=== PATIENT | female | born 1955 | race Caucasian/White ===

== ENCOUNTER 2017-04-14 06:10 | Inpatient (IN) ==
[2017-04-14] MEDS ORDERED: Albuterol 2.5 MG/3 ML NEBULIZER ONE (06:33)
[2017-04-14] MEDS ORDERED: Lidocaine -MPF 1% 2 ML VIAL ID ONE (06:37)
[2017-04-14] MEDS ORDERED: CeFAZolin Pre 2,000 MG/100 ML 2,000 MG/100 ML BAG IVPB ONE (06:37)
[2017-04-14] MEDS ORDERED: Albuterol 2.5 MG/3 ML NEBULIZER IH ONE (06:37)
[2017-04-14] MEDS ORDERED: Plasma-Lyte A (PH 7.4) 1,000 ML IVC SCH (06:45)
--- NOTE | 2017-04-14 07:40 | Anesthesia Evaluation PreOp ---
Date of Encounter: 04/14/17 Time of Encounter: 07:49 - Past History Planned Operation: exploration of fusion, removal hw, plif l3-4 Cardiac History: OR (2006), HTN, Hyperlipidemia, Cardiac Stent, Other (stress : ef 60, stress induced ischemia apex lv, abnl tid, ekg nondx. lhc 01/07: ef 60, andrew to mid rca, prior stent at prox lad is patent) Pulmonary History: Smoker, Pack/yr (40) EXHIBITS MANAGER History: Denies Any Significant HX Other Medical History: Denies Any Significant HX Anesthesia History: No Prior Anesthetic Complications, Past Anesthesia (back) Alcohol Use: none Drug use: none Medications and Allergies Atorvastatin Calcium [Lipitor] 20 mg PO DAILY 01/23/16 [History] Carvedilol 12.5 mg PO BID 01/23/16 [History] Cyclobenzaprine HCl 10 mg PO BID 01/23/16 [History] Gabapentin [Neurontin] 1,200 mg PO TID 01/23/16 [History] Morphine Immed Rel [Morphine Sulfate] 15 mg PO BID 01/23/16 [History] Nitroglycerin [Nitrostat] 0.4 mg SL Q5M PRN 01/23/16 [History] Aspirin 81 mg PO DAILY #30 tab.chew 01/24/16 [Rx] Clopidogrel [Plavix] 75 mg PO DAILY #30 tablet 01/24/16 [Rx] 3 Allergy/AdvReac Type Severity Reaction Status Date / Time adhesive Allergy Blister Verified 04/14/17 06:54 bacitracin Allergy RASH/BLISTE Verified 04/14/17 07:04 [From Neosporin RS ([id number])] bee venom protein (honey bee) Allergy THROAT Verified 04/14/17 07:04 SWELLING Cortisone Allergy Rash Verified 01/23/16 09:32 Neomycin Allergy RASH/BLISTE Verified 04/14/17 07:04 [From Neosporin RS ([id number])] polymyxin B Allergy RASH/BLISTE Verified 04/14/17 07:04 [From Neosporin RS ([id number])] bupropion [From Wellbutrin] AdvReac Anxiety Verified 01/23/16 09:34 morphine AdvReac See Verified 04/14/17 06:54 Comments - Meds/Allergy Pre-op Review Medications Reviewed: Yes Allergies Reviewed: Yes Beta Blockers on Current Med List: Yes If Beta Blockers taken, Date/Time (Last Dose taken): coreg at 0430 Anesthesia Results - Labs Laboratory Tests 04/09/17 04/09/17 04/09/17 11:26 11:26 11:26 Hgb 12.5 Hct 37.8 Plt Count 284 PT 10.4 INR 1.0 APTT 37.4 H Sodium 136 Potassium 4.7 H Creatinine 0.80 - Imaging EKG: report reviewed (sr) Anesthesia Exam O2 Sat Height 1.57 m Height 1.57 m Height 1.57 m Weight 63.049 kg Weight 63.049 kg Weight 63.049 kg O2 Sat by Pulse Oximetry 99 Vital Signs Temp Pulse Resp BP Pulse Ox 98.1 F 74 18 140/86 99 04/14/17 06:33 04/14/17 06:33 04/14/17 06:33 04/14/17 06:33 04/14/17 06:33 Height: 1.57 Weight: 63 NPO (# of Hours): >8 - HEENT Pupil (Motor): Pupils equal, EOMI Mallampati: III Teeth: Poor dentition Oral Opening: Greater than 3 (good underbite) - EXHIBITS MANAGER LOC: Oriented EXHIBITS MANAGER Motor: Normal RUE, Normal LUE, Normal RLE, Normal LLE, Normal Face EXHIBITS MANAGER Sensory: Normal: RUE, LUE, RLE, LLE, Face - Cardiac Rhythm: Regular Murmur: None - Pulmonary Breath Sounds: bilateral Clear Respiratory Effort: Symmetrical Anesthesia Assess/Plan ASA Score: 3 Modified Hilliard Scale for Level of Consciousness: Cooperative, oriented, and tranquil Anesthetic Plan: General Monitoring Plan: Standard Monitors Recovery Plan: PACU
[2017-04-14] MEDS ORDERED: Lidocaine -MPF 1% 2 ML VIAL ONE (07:49)
--- NOTE | 2017-04-14 07:51 | History & Physical Report ---
Date of Encounter: 04/14/17 Time of Encounter: 07:50 24 Hour HP Update - Instructions Instructions: If the History and Physical is less than 30 days old and was completed prior to A.M. admission and or procedure and has NOT been updated on calendar day of procedure please complete this update prior to performing procedure. - Update Patient reports changes in Medical Condition: No Changes in examination, assessment, or condition: No Changes in Medication: No Preop tests/diagnostics Reviewed: Yes Pre-Op MRSA Screen: Negative Surgery Remains Indicated: Yes Consent for Planned Operative Procedure(s) Verified: Yes - Pre-Operative Checklist Preoperative Checklist Indicated: No Prophylactic Antibiotic Ordered: Yes Home Medications Include Beta Setffi: Yes Beta Steffi Taken Today (Day of Surgery): No Beta Steffi Taken Yesterday (Day Prior to Surgery): Yes Is VTE Prophylaxis Indicated?: Yes
[2017-04-14] MEDS ORDERED: Ondansetron 4 MG/2 ML VIAL ONE (08:14)
[2017-04-14] MEDS ORDERED: Dexamethasone 4 MG/ML VIAL ONE (08:14)
[2017-04-14] MEDS ORDERED: *HR* Rocuronium Bromide 50 MG/5 ML VIAL ONE (08:14)
[2017-04-14] MEDS ORDERED: Lidocaine -MPF 4% 5 ML AMPUL ONE (08:14)
[2017-04-14] MEDS ORDERED: *HR* Succinylcholine 200 MG/10 ML VIAL IVP ONE (08:14)
[2017-04-14] MEDS ORDERED: *HR* FentaNYL (PF) 100 MCG/2 ML VIAL ONE (08:15)
[2017-04-14] MEDS ORDERED: *HR* Propofol 200 MG/20 ML VIAL IVP ONE (08:15)
[2017-04-14] MEDS ORDERED: EPHEDrine 50 MG/ML VIAL ONE (08:49)
[2017-04-14] MEDS ORDERED: *HR* Phenylephrine 10 MG/ML VIAL ONE (08:51)
[2017-04-14] MEDS ORDERED: Ondansetron 4 MG/2 ML VIAL IVP ONE (09:27)
[2017-04-14] MEDS ORDERED: *HR* Labetalol 20 MG/4 ML SYRINGE IVP PRN (09:27)
[2017-04-14] MEDS ORDERED: Neostigmine Methylsulfate 3 MG/3 ML SYRINGE ONE (11:21)
--- NOTE | 2017-04-14 11:51 | Orthopedic Operative Note ---
Date of procedure: 04/14/17 Pre-op diagnosis: Lumbar stenosis, degenerative scoliosis, previous lumbar fusion Post-op diagnosis: same Operation/Findings: Exploration of fusion, removal of hardware, posterior lumbar interbody fusion L3 -4: The patient successfully underwent general endotracheal anesthesia. The patient was given antibiotics prior to the start of the procedure. Compression boots and stockings were used for deep vein thrombosis prophylaxis. A Benoit catheter was placed. Leads for neuro monitoring were placed on the upper and lower extremities. This included the cranium. The neuro monitoring personnel confirmed there were satisfactory readings prior to the start of the procedure. The patient was turned prone on the Solo table. The back was prepped and draped in the usual sterile fashion. An incision was was marked and centered over the involved L3-L5 levels in the mid line impart utilizing the previous skin incision. The incision was deepened through the lumbar fascia. Bovie cautery and Seaman elevators were used to reflect the paraspinal musculature at the lateral extent of the transverse processes of the involved L3 and L4 levels. Vianca clamps were placed over the L3 and L4 spinous processes. An intraoperative lateral fluorograph was obtained. A conversation was held between the surgeon and radiologist and both confirmed we had the correct L3 and L4 operative levels. We subsequently exposed the bilateral hardware at L4 and L5 as well as the fusion mass at this level. After palpation and manipulation of the hardware and fusion mass there appeared to be a solid fusion at L4-5 without pseudoarthrosis. We removed the bilateral pedicle screws at L4 and L5 including the connecting rods and capnuts in standard fashion using universal instruments. We then placed new pedicle screws in standard fashion with the aid of fluoroscopy and anatomic landmarks. Briefly a starter awl was used. A gearshift was subsequently used to enter the balloon pilot hole via a transpedicular route into the vertebral body. The balloon pilot hole was tapped with an undersized instrument, and subsequently four 6.5 x 40 mm pedicle screws were placed bilaterally at the indicated L3 and L4 levels. The screws were tested with the aid of the neurologic monitoring staff via pedicle screw stimulation. All reading suggested there was no significant cortical wall breech. The screws were also evaluated fluoro- graphically and appeared to be in satisfactory position. We then turned our attention to the decompression portion of the procedure. We removed the supraspinous and interspinous ligaments and subsequently the insertion of the ligamentum flavum on the undersurface of the proximal L3 lamina was dislodged with a curette. We then removed the ligamentum flavum as well as undercut the L3-4 facets at this L3-4 level to decompress the lateral recesses. We also performed a L3 laminectomy. After the decompression, which was over and above that which was required to place the interbody graft, the foramen and traversing roots at this L3-L4 level were found to be free and patent. We also took part of the medial facets in order to aid in the decompression. We then protected the neural elements including the thecal sac and traversing nerve root on the right with a dural retractor. We made an annulotomy into the L3-L4 disc space and then removed the entire disc material using Pituitary instruments. We trialed various size grafts after the endplates were prepared for graft insertion. An 8 x 26 enter body graft fit well within the L3-L4 disc space. We obtained some bone from the right posterior superior iliac spine through us a separate incision and combined with this with the bone which we had saved from the laminectomy portion of the procedure. This autograft bone was first placed in the anterior portion of the L3-L4 disc space and additional bone was placed within the interbody graft spacer. We then placed the interbody graft spacer obliquely across the L3-L4 disc space towards the midline while protecting the neural elements with a root retractor. When the graft was found to be in satisfactory position the afloat cryptologic manager was removed. We then copiously irrigated the wound. We then decorticated the L3 and L4 transverse processes as well as the L3-L4 facet joints of the involved L3 and L4 levels to aid in the posterolateral fusion. We placed autograft bone in the lateral gutters over these regions. We then placed rods within the screw heads of the involved L3 and L4 levels and first locked the distal screws and then subsequently locked the proximal screws so as to improve the scoliosis and listhesis previously seen. We then closed the wound in layers with 1 Vicryl for the fascia, 2-0 Vicryl. Subcutaneous tissue, and Dermabond was used for skin closure. Sterile dressings were placed over the wound. The patient was turned supine on a hospital bed and extubated. All sponge instruments and needle counts were correct at the end of the procedure. The patient tolerated the procedure well without complications. Anesthesia: GETA Surgeon: Александр Scott Jr Estimated blood loss (cc): 150 Condition: stable Disposition: PACU
[2017-04-14] MEDS ORDERED: *HR* HYDROmorphone 2 MG/ML SYRINGE ONE (12:02)
[2017-04-14] MEDS: *HR* HYDROmorphone (PF) 1 MG/ML SYRINGE IVP PRN ×3 (12:11→12:29)
--- NOTE | 2017-04-14 12:44 | Anesthesia Evaluation Post Op ---
Date of Encounter: 04/14/17 Time of Encounter: 12:43 - Vital Signs Vital Signs: Vital Signs/O2 Sat/Glucose, Most Current Temp Pulse Resp BP Pulse Ox 04/14/17 12:42 97.4 F L 62 14 112/78 100 04/14/17 12:32 97.4 F L 69 16 129/78 91 04/14/17 12:22 71 18 127/81 95 04/14/17 12:12 69 18 139/90 99 04/14/17 12:02 97.4 F L 79 20 147/94 99 - Lungs Lungs: Clear Ascult./Percussion - Airway Airway: Non-obstructed - Cardiovascular Regular Rate - Mental Status Mental Status: Alert & Oriented, Answers Appropriately - Pain Pain Scale: 0 - Nausea Vomiting Nausea Vomiting: Not Present - Hydration Hydration: Ice chips - Discharge PostOp Status: Transfer Patient to floor
[2017-04-14] MEDS ORDERED: *HR* Morphine 2 MG/ML SYRINGE IVP PRN (13:00)
[2017-04-14] MEDS ORDERED: Naloxone 0.4 MG/ML INJ IVP PRN (13:00)
[2017-04-14] MEDS ORDERED: Nitroglycerin 0.4 MG TAB.SUBL SL PRN (13:00)
[2017-04-14] MEDS ORDERED: Ondansetron 4 MG/2 ML VIAL IVP PRN (13:00)
[2017-04-14] MEDS: *HR* OxyCODONE Immed Rel 5 MG TABLET PO SCH ×4 (14:37→23:29)
[2017-04-14] MEDS: ceFAZolin 2,000 MG in D5% in Water 100 ML IVPB SCH ×2 (15:39→23:29)
[2017-04-14] MEDS: Ringers Solution, Lactated 1,000 ML IVC SCH (18:08)
[2017-04-14] MEDS ORDERED: *HR* Morphine Immed Rel 15 MG TABLET PO SCH (21:00)
[2017-04-14] MEDS ORDERED: *HR* Morphine Immed Rel 30 MG TABLET PO SCH (21:00)
[2017-04-15] MEDS: *HR* OxyCODONE Immed Rel 5 MG TABLET PO SCH ×5 (03:32→21:15)
[2017-04-15] MEDS: Ringers Solution, Lactated 1,000 ML IVC SCH ×2 (03:37→15:30)
[2017-04-15 06:03] LABS: Basophils % 0.1 %; Eosinophils % 0.1 %; Hematocrit 32.3 % (35.3-44.9); Hemoglobin 10.4 g/dL (11.5-15.4); Immature Granulocytes % 0.4 % (0-4); Lymphocytes # 1.3 K/mcL (0.6-4.6); Mean Corpuscular HGB Conc 32.2 g/dL (31.6-35.5); Mean Corpuscular Hemoglobin 27.9 pg (28.0-33.3); Mean Corpuscular Volume 86.6 fL (83.0-100.0); Mean Platelet Volume 11.7 fL (9.4-12.4); Monocytes # 0.9 K/mcL (0.0-1.3); Monocytes % 8.2 %; Neutrophils # 8.9 K/mcL (1.6-8.9); Platelet Count 260 K/mcL (140-400); Red Blood Count 3.73 M/mcL (3.82-4.97); Segmented Neutrophils % 79.2 %
[2017-04-15 06:19] LABS: BUN/Creatinine Ratio 11 (6-26); Blood Urea Nitrogen 8 mg/dL (7-20); Calcium 8.8 mg/dL (8.6-10.8); Carbon Dioxide 27 mEq/L (19-29); Chloride 102 mEq/L (98-109); Glucose 117 mg/dL (70-99); Osmolality,Calculated 281 (280-300); Potassium 4.3 mEq/L (3.5-4.5); Sodium 136 mEq/L (136-145); eGFR For African Americans > 60 (> 60); eGFR For Non-African Americans > 60 (> 60)
[2017-04-15] MEDS: Aspirin 81 MG TAB.CHEW PO SCH (08:18)
[2017-04-15] MEDS ORDERED: Gabapentin 400 MG CAPSULE PO SCH (09:00)
[2017-04-15] MEDS: *HR* HYDROmorphone 2 MG/ML SYRINGE IVP PRN (11:07)
[2017-04-15] MEDS: Gabapentin 300 MG CAPSULE PO SCH ×3 (11:31→21:16)
--- NOTE | 2017-04-15 11:42 | Spine Progress Note ---
Date of Encounter: 04/15/17 Time of Encounter: 11:40 Subjective Principal diagnosis: Lumbar stenosis, status post lumbar fusion Interval history: The patient is without complaints. Afebrile vital signs are stable. Dressing is clean dry and intact. Neurovascularly intact with regard to bilateral lower extremities. Fires all upper and lower extremity motor groups. Assessment : stable. Plan mobilize ,continue analgesics, discharge planning. Objective Vital signs: Vital Signs Temp Pulse Resp BP Pulse Ox 04/15/17 07:56 98.0 F 72 18 146/87 96 04/15/17 03:40 98.3 F 76 21 133/82 93 04/14/17 23:36 98.0 F 77 16 126/82 95 04/14/17 19:29 97.6 F 79 17 118/82 95 04/14/17 16:07 97.2 F L 75 14 120/82 98 04/14/17 15:11 97.0 F L 77 16 127/83 98 04/14/17 14:30 66 16 122/87 99 04/14/17 14:27 96.9 F L 04/14/17 14:08 96.3 F L 04/14/17 13:55 62 14 129/76 99 04/14/17 13:32 97.2 F L 60 14 122/78 97 04/14/17 13:03 68 16 127/79 99 04/14/17 12:42 97.4 F L 62 14 112/78 100 04/14/17 12:32 97.4 F L 69 16 129/78 91 04/14/17 12:22 71 18 127/81 95 04/14/17 12:12 69 18 139/90 99 04/14/17 12:02 97.4 F L 79 20 147/94 99 Intake and Output 04/14/17 04/15/17 04/15/17 23:59 07:59 15:59 Intake Total 680 / 680 1400 / 1400 0 / 0 Output Total 725 / 725 Balance -45 / -45 1400 / 1400 0 / 0 Intake: IV Fluids 200 / 200 1100 / 1100 Lactated Ringers 1,000 ML 1000 / 1000 @ 100 mls/hr IVC .Q10H MARIA ISABEL Rx#:[id number] Ancef 2,000 MG In 200 / 200 100 / 100 Dextrose 5% 100 ML @ 200 mls/hr IVPB Q8HR MARIA ISABEL Rx#: [id number] Oral 480 / 480 300 / 300 0 / 0 Output: Catheter 725 / 725 Other: Meal clear Breakfast Percent of Meal Consumed 0% # Voids 1 - Labs CBC & BMP: 04/15/17 05:37 04/15/17 05:37 Labs: Abnormal lab results WBC 11.2 K/mcL (4.3-11.1) H D 04/15/17 05:37 RBC 3.73 M/mcL (3.82-4.97) L 04/15/17 05:37 Hgb 10.4 g/dL (11.5-15.4) L D 04/15/17 05:37 Hct 32.3 % (35.3-44.9) L 04/15/17 05:37 MCH 27.9 pg (28.0-33.3) L 04/15/17 05:37 Glucose 117 mg/dL (70-99) H 04/15/17 05:37 Consult Discharge Plan - Plan [facility]errals: [facility] [Primary Care Provider[facility] -
[2017-04-16] MEDS: *HR* OxyCODONE Immed Rel 5 MG TABLET PO SCH ×2 (00:43→04:23)
[2017-04-16] MEDS: Gabapentin 300 MG CAPSULE PO SCH ×3 (10:18→21:00)
[2017-04-16] MEDS: Aspirin 81 MG TAB.CHEW PO SCH (10:18)
[2017-04-16] MEDS: *HR* OxyCODONE Immed Rel 5 MG TABLET PO PRN ×2 (10:31→21:00)
--- NOTE | 2017-04-16 15:25 | Spine Progress Note ---
Date of Encounter: 04/16/17 Time of Encounter: 15:24 Subjective Principal diagnosis: Lumbar stenosis, status post lumbar fusion Interval history: The patient complains of headache and has a history of migraines. Afebrile vital signs are stable. Dressing is clean dry and intact. Neurovascularly intact with regard to bilateral lower extremities. Fires all upper and lower extremity motor groups. Assessment :stable. Plan mobilize ,continue analgesics, discharge planning. Objective Vital signs: Vital Signs Temp Pulse Resp BP Pulse Ox 04/16/17 10:41 99 F 103 16 137/87 91 04/16/17 06:44 99.2 F 93 14 135/83 90 04/16/17 04:41 98.4 F 118 19 122/78 92 04/15/17 21:00 98.8 F 84 18 154/89 92 Intake and Output 04/15/17 04/16/17 04/16/17 23:59 07:59 15:59 Intake Total 120 / 120 Balance 120 / 120 Intake: Oral 120 / 120 Other: Meal Dinner Percent of Meal Consumed 0% 20% # Voids 1 - Labs CBC & BMP: 04/15/17 05:37 04/15/17 05:37 Labs: Abnormal lab results WBC 11.2 K/mcL (4.3-11.1) H D 04/15/17 05:37 RBC 3.73 M/mcL (3.82-4.97) L 04/15/17 05:37 Hgb 10.4 g/dL (11.5-15.4) L D 04/15/17 05:37 Hct 32.3 % (35.3-44.9) L 04/15/17 05:37 MCH 27.9 pg (28.0-33.3) L 04/15/17 05:37 Glucose 117 mg/dL (70-99) H 04/15/17 05:37 Consult Discharge Plan - Plan [facility]errals: [facility] [Primary Care Provider] -
[2017-04-16] MEDS: Acetaminophen 325 MG TABLET PO PRN ×2 (15:35→20:59)
[2017-04-17] MEDS: *HR* HYDROmorphone 2 MG/ML SYRINGE IVP PRN ×4 (05:55→20:28)
[2017-04-17 06:48] LABS: Amylase 28 Units/L (25-125); BUN/Creatinine Ratio 14 (6-26); Bilirubin,Total 0.5 mg/dL (0.2-1.2); Blood Urea Nitrogen 10 mg/dL (7-20); Calcium 9.2 mg/dL (8.6-10.8); Carbon Dioxide 32 mEq/L (19-29); Chloride 96 mEq/L (98-109); Glucose 104 mg/dL (70-99); Lipase < 10 Units/L (8-78); Osmolality,Calculated 285 (280-300); Sodium 138 mEq/L (136-145); eGFR For African Americans > 60 (> 60); eGFR For Non-African Americans > 60 (> 60)
[2017-04-17] MEDS: Aspirin 81 MG TAB.CHEW PO SCH (08:45)
[2017-04-17] MEDS: Gabapentin 300 MG CAPSULE PO SCH ×3 (08:45→20:16)
[2017-04-17] MEDS: *HR* OxyCODONE Immed Rel 5 MG TABLET PO PRN ×4 (10:03→23:54)
--- NOTE | 2017-04-17 12:26 | Spine Progress Note ---
Date of Encounter: 04/17/17 Time of Encounter: 12:24 Subjective Principal diagnosis: Lumbar stenosis, status post lumbar fusion Interval history: Currently complains of right upper quadrant and periumbilical pain. Denies fevers, chills or nausea or vomiting. Afebrile vital signs are stable. Incision is clean dry and intact. Neurovascularly intact with regard to bilateral lower extremities. Fires all upper and lower extremity motor groups. She has tenderness to palpation in the periumbilical and right upper quadrant region. No masses detected. No true rebound tenderness. Some guarding with palpation. Assessment :stable. Plan mobilize ,continue analgesics, KUB/ abdomen reviewed and there is no free air or acute abdomen. There is a question of colitis. Laboratory studies including chem 7, amylase, lipase, total bilirubin unremarkable. I am going to obtain a hospitalist consult for evaluation of her abdominal complaints to see if they have anything further to add/recommend. Objective Vital signs: Vital Signs Temp Pulse Resp BP Pulse Ox 04/17/17 12:16 98.7 F 93 18 126/84 94 04/17/17 08:05 98.9 F 89 18 132/84 93 04/17/17 00:49 98.4 F 89 18 107/70 91 04/16/17 22:00 98.8 F 100 17 118/78 94 04/16/17 15:37 98.4 F 92 16 116/74 92 Intake and Output 04/16/17 04/17/17 04/17/17 23:59 07:59 15:59 Intake Total 500 / 500 Balance 500 / 500 Intake: Oral 500 / 500 Other: # Voids 1 2 1 - Labs CBC & BMP: 04/15/17 05:37 04/17/17 06:11 Labs: Abnormal lab results WBC 11.2 K/mcL (4.3-11.1) H D 04/15/17 05:37 RBC 3.73 M/mcL (3.82-4.97) L 04/15/17 05:37 Hgb 10.4 g/dL (11.5-15.4) L D 04/15/17 05:37 Hct 32.3 % (35.3-44.9) L 04/15/17 05:37 MCH 27.9 pg (28.0-33.3) L 04/15/17 05:37 Chloride 96 mEq/L (98-109) L 04/17/17 06:11 Carbon Dioxide 32 mEq/L (19-29) H 04/17/17 06:11 Glucose 104 mg/dL (70-99) H 04/17/17 06:11 Consult Discharge Plan - Plan [facility]errals: [facility] [Primary Care Provider] -
[2017-04-17] MEDS: Acetaminophen 325 MG TABLET PO PRN (13:33)
[2017-04-17] MEDS: 0.9 % Sodium Chloride 1,000 ML IVC SCH (13:51)
--- NOTE | 2017-04-17 13:56 | Internal Medicine Consult Note ---
<Katie Pichardo - Last Filed: 04/17/17 14:13> Date of Encounter: 04/17/17 Time of Encounter: 13:45 - Assessment and Plan (1) Abdominal pain Current Visit: Yes Status: Acute Assessment and plan: 1 patient has been experiencing stabbing like pain in her right upper quadrant since Friday. Pain is constant and relieved with pain medication and aggravated with movement. KUB did reveal possible colitis. Amylase and lipase are within normal limits. We will give patient clear liquids for now 2 IV fluids 3 obtain LFTs [address] of abdomen with IV contrast 6 urinalysis 7 continue with present pain medication Qualifiers: Abdominal location: right upper quadrant Qualified Code(s): R10.11 - Right upper quadrant pain (2) Spinal stenosis of lumbar region Current Visit: Yes Status: Acute Assessment and plan: 1 this is being managed per Dr. Scott 2 continue with current pain regime (3) CAD (coronary artery disease) Current Visit: No Status: Chronic Assessment and plan: 1 continue with ASA BB plavix statin 2 nitrates as needed Qualifiers: Coronary Disease-Associated Artery/Lesion type: [place] artery [place] vs. transplanted heart: [place] heart Associated angina: without angina Qualified Code(s): I25.10 - Atherosclerotic heart disease of [place] coronary artery without angina pectoris (4) DVT prophylaxis Current Visit: Yes Status: Acute Assessment and plan: SCD Internal Medicine - CN: HPI - Data of Consult Patient: new to practice Requesting Physician: Александр Scott Jr MD - Consult Narrative Reason for consult: Medical managment of ABD pain History of present illness: Ms. Naylor is a 61 year old female past medical history of MD with 2 stent placement hypertension hyperlipidemia spinal stenosis. Patient was admitted to this facility per Dr. Scott to undergo spinal surgery due to spinal stenosis. She underwent spinal surgery without any complications. On Friday she began to experience right upper quadrant pain. At first the patient contributed pain to postop pain however the pain continued over the next few days without any improvement. Hospitalist services have been consulted for management of abdominal pain She describes the pain as constant right upper quadrant sharp knifelike radiating at times to her umbilicus. It is aggravated with movement and palpation is relieved with pain medication. She has been passing gas she has not had a bowel movement since surgery. She denies any nausea vomiting fevers or chills. She has been able to tolerate oral intake. She denies any urinary symptoms. KUB was obtained per Dr. Scott which did show no acute abdomen, no free air, indeterminate bowel gas pattern with possible descending colitis. Amylase, lipase and bilirubin are within normal limits. Upon assessment patient appears to be in some slight discomfort. She denies any chest pain or shortness of breath. Her lung sounds are clear heart sounds are regular S1-S2 with no rubs clicks, murmurs noted abdomen is soft and distended. Bowel sounds 4. Upon palpation right upper and lower quadrants are very tender with guarding, rest of abdomen is tender to touch however not as intense as right side. There are no masses appreciated no rebound tenderness There is no pedal edema. We will continue with abdominal workup CBC urine CAT scan of abdomen. reviewed with DR Gandhi who agrees with plan Past Med Surg Social Fam HX - Past Medical History Medical history: coronary artery disease, hyperlipidemia, myocardial infarction , other Psychiatric history: no psych history - Past Surgical History Surgical History: angioplasty/stent, orthopedic, other, other - Social History Smoking Status: Current every day smoker Packs per day: 1 Smokeless Tobacco Status: No Alcohol use: none Drug use: none - Family History Mother Hx Family Cardiac Disorders: Yes Hx Family Endocrine Disorder: Yes - Gastrointestinal Gastrointestinal: abdominal pain, bloating Internal Medicine - CN: Meds Atorvastatin Calcium [Lipitor] 20 mg PO DAILY 01/23/16 [History] Carvedilol 12.5 mg PO BID 01/23/16 [History] Cyclobenzaprine HCl 10 mg PO BID 01/23/16 [History] Gabapentin [Neurontin] 600 mg PO TID 01/23/16 [History] Nitroglycerin [Nitrostat] 0.4 mg SL Q5M PRN 01/23/16 [History] Aspirin 81 mg PO DAILY #30 tab.chew 01/24/16 [Rx] Clopidogrel [Plavix] 75 mg PO DAILY #30 tablet 01/24/16 [Rx] 3 Allergy/AdvReac Type Severity Reaction Status Date / Time adhesive Allergy Blister Verified 04/14/17 06:54 bacitracin Allergy RASH/BLISTE Verified 04/14/17 07:04 [From Neosporin RS ([id number])] bee venom protein (honey bee) Allergy THROAT Verified 04/14/17 07:04 SWELLING Cortisone Allergy Rash Verified 01/23/16 09:32 Neomycin Allergy RASH/BLISTE Verified 04/14/17 07:04 [From Neosporin RS ([id number])] polymyxin B Allergy RASH/BLISTE Verified 04/14/17 07:04 [From Neosporin RS ([id number])] bupropion [From Wellbutrin] AdvReac Anxiety Verified 01/23/16 09:34 morphine AdvReac See Verified 04/14/17 06:54 Comments Internal Medicine - CN: Exam - Constitutional Vitals: Temp Pulse Resp BP Pulse Ox 98.7 F 93 18 126/84 94 04/17/17 12:16 04/17/17 12:16 04/17/17 12:16 04/17/17 12:16 04/17/17 12:16 General appearance IM: Present: A&O X 3, answers questions appropriately - Respiratory Respiratory exam: Present: CTAB - Cardiovascular Cardiovascular exam IM: Present: RRR, +S1, +S2 - GI/Abdominal GI/Abdominal exam IM: Present: distended, guarding, tenderness - Extremities Exam Extremities exam IM: Present: radial pulses palpable and symmetrical - Back Exam Back exam: Present: normal inspection - Neurological Exam Neurological exam: Present: CN II-XII intact, no focal deficits, strengths equal and symetr throughout - Skin Skin exam IM: Present: dry Internal Medicine - CN: Reslt - Labs CBC & Chem 7: 04/15/17 05:37 04/17/17 06:11 Labs: BMP 04/17/17 06:11 Sodium 138 Potassium 4.0 Chloride 96 L Carbon Dioxide 32 H BUN 10 Creatinine 0.69 Glucose 104 H Calcium 9.2 Liver Function 04/17/17 Range/Units 06:11 Total Bilirubin 0.5 (0.2-1.2) mg/dL - Impressions Impressions KUB X-Ray 04/17/17 05:50 IMPRESSION: Indeterminate bowel-gas pattern with possible descending colitis. D/ / Adelso Helton MD / Adelso Helton MD Interpreting Provider: Adelso Helton MD Lumbar Spine X-Ray 04/17/17 08:15 IMPRESSION: 1. Decreased bone mineral density. Stable multilevel degenerative changes and decreased bone mineral density. 2. Stable L3-4 discectomy and posterior fusion. 3. Stable prior L4-5 discectomy. D/ 04/17/2017 12:08:20 Med Bush MD / cat Interpreting Provider: Med Bush MD - Diagnostic Studies Other Images Additional comments: KUB X-Ray 04/17/17 05:50 IMPRESSION: Indeterminate bowel-gas pattern with possible descending colitis. D/ / Adelso Helton MD / Adelso Helton MD Interpreting Provider: Adelso Helton MD Lumbar Spine X-Ray 04/17/17 08:15 IMPRESSION: 1. Decreased bone mineral density. Stable multilevel degenerative changes and decreased bone mineral density. 2. Stable L3-4 discectomy and posterior fusion. 3. Stable prior L4-5 discectomy. D/ 04/17/2017 12:08:20 Med Bush MD / cat Interpreting Provider: Med Bush MD Consult Discharge Plan - Plan [facility]errals: [facility]Primary Care Provider[facility] - <Agnieszka Gandhi - Last Filed: 04/17/17 16:26> Date of Encounter: 04/17/17 Time of Encounter: 15:45 Internal Medicine - CN: HPI - Data of Consult Requesting Physician: Александр Scott Jr MD - Consult Narrative History of present illness: Ms. Naylor is a 61 year old female Internal Medicine - CN: Exam - Constitutional Vitals: Temp Pulse Resp BP Pulse Ox 98.7 F 93 18 126/84 94 04/17/17 12:16 04/17/17 12:16 04/17/17 12:16 04/17/17 12:16 04/17/17 12:16 Internal Medicine - CN: Reslt - Labs CBC & Chem 7: 04/17/17 14:44 04/17/17 06:11 Labs: Short CBC 04/17/17 Range/Units 14:44 WBC 9.1 (4.3-11.1) K/mcL Hgb 9.7 L (11.5-15.4) g/dL Hct 29.5 L (35.3-44.9) % Plt Count 243 (140-400) K/mcL Neutrophils # 6.8 (1.6-8.9) K/mcL BMP 04/17/17 06:11 Sodium 138 Potassium 4.0 Chloride 96 L Carbon Dioxide 32 H BUN 10 Creatinine 0.69 Glucose 104 H Calcium 9.2 Liver Function 04/17/17 04/17/17 Range/Units 06:11 14:44 Total Bilirubin 0.5 0.4 (0.2-1.2) mg/dL Direct Bilirubin 0.3 (0.0-0.5) mg/dL AST 17 (5-34) Units/L ALT 10 (0-55) Units/L Alkaline Phosphatase 86 (38-126) Units/L Albumin 2.7 L (3.5-5.0) g/dL - Impressions Impressions KUB X-Ray 04/17/17 05:50 IMPRESSION: Indeterminate bowel-gas pattern with possible descending colitis. D/ / Adelso Helton MD / Adelso Helton MD Interpreting Provider: Adelso Helton MD Lumbar Spine X-Ray 04/17/17 08:15 IMPRESSION: 1. Decreased bone mineral density. Stable multilevel degenerative changes and decreased bone mineral density. 2. Stable L3-4 discectomy and posterior fusion. 3. Stable prior L4-5 discectomy. D/ / 04/17/2017 12:08:20 Med Bush MD / cat Interpreting Provider: Med Bush MD Abdomen/Pelvis CT 08/24/17 13:37 IMPRESSION: Postoperative changes are seen related to recent L3-L4 discectomy, laminectomy, and posterior spinal fusion. There is a small amount of soft tissue gas seen within the paraspinal musculature, as well as the right psoas muscle and felt likely postsurgical in nature. No loculated rim enhancing fluid collection is seen to suggest an abscess at this time. There is also a small amount of associated subcutaneous soft tissue edema which may be related to developing seroma. Diffuse atherosclerotic disease without acute vascular abnormality. Mild intrahepatic ductal dilation, without definite obstruction. Correlate with liver enzymes. The common bile duct and pancreatic duct are not dilated. There are several small hypoattenuating lesions seen within the liver, with an overall benign appearance though measuring 2-3 mm in size. If this patient is at high risk for malignancy, this could be followed up in 6 months, versus if low to moderate risk per ACR criteria, no follow-up needed. D/ / Bry Vazquez MD / Bry Vazquez MD Interpreting Provider: Bry Vazquez MD - Attending Attestation I examined this patient and my medical decision-making was reviewed with the nurse practitioner. I agree with the documented history of present illness, review of systems, past medical, surgical social and family histories and examination findings, disposition and treatment plan as described above except to any changes set forth below. 61-year-old female patient admitted she her following lumbar spine fusion of L3- L4 vertebra for spinal stenosis. Complaints of abdominal pain in the right upper quadrant radiating down to the groin. Has been going off and on since Friday. Pain makes her feel nauseated. Cramping type. Relieved with intravenous narcotic medications that the patient is receiving for her spine surgery. Has not had a bowel movement for a couple of days but she has not eaten much either. Passing flatus without any difficulty. Never had similar symptoms in the past. No fever chills or night sweats. No chest pain or palpitations. Does have a history of coronary artery disease and had PCI with stent placed in 2016. Currently takes aspirin and Plavix. On examination, patient is awake and alert and oriented. In mild discomfort. Cardiovascular exam shows normal S1 and S2. Respiratory exam shows normal breath sounds. Abdomen is soft and there is right upper quadrant tenderness. Troncoso's sign negative but there is voluntary guarding. Bowel sounds are normal. Reviewed labs. Normal WBC count. Hemoglobin 9.7. Liver enzymes are normal. Alkaline phosphatase, amylase and lipase are also normal. KUB x-ray shows possible descending colitis. CT scan of the abdomen and pelvis ordered with intravenous contrast and this showed no signs of colitis or obstruction. There is mild hepatic ductal dilatation but no gallstones visualized. Pancreas looks normal. CBD and pancreatic duct are also normal. There are some hypoattenuating lesions in the liver which appear benign. Right upper quadrant abdominal pain: Uncertain etiology. No clinical features to suggest colitis. Patient does not have any abnormal liver function tests or features suggestive of gallbladder disease. Abnormal liver lesions but mostly benign. Patient does not have any risk factors for malignancy. We will however check viral hepatic panel. No clear intra-abdominal cause for the patient's pain. We will treat symptomatically. Keep on clears for today and advance diet from tomorrow as tolerated. Pain could also be related to costochondral/muscular pain due to positioning during surgery. We will check urine analysis to look for any acute urinary tract infection. At this time, no further workup is warranted. If patient's condition changes or she develops any other abnormal findings, we may work up further with liver ultrasound. Thank you very much for the consult during care of this patient. We will follow along with you.
[2017-04-17 15:20] LABS: Basophils % 0.2 %; Eosinophils # 0.1 K/mcL (0.0-0.6); Eosinophils % 0.8 %; Hematocrit 29.5 % (35.3-44.9); Hemoglobin 9.7 g/dL (11.5-15.4); Immature Granulocytes % 0.3 % (0-4); Lymphocytes # 1.4 K/mcL (0.6-4.6); Mean Corpuscular HGB Conc 32.9 g/dL (31.6-35.5); Mean Corpuscular Volume 85.3 fL (83.0-100.0); Mean Platelet Volume 11.7 fL (9.4-12.4); Monocytes # 0.8 K/mcL (0.0-1.3); Monocytes % 8.9 %; Neutrophils # 6.8 K/mcL (1.6-8.9); Nucleated Red Blood Cells 0.2 /100 WBC (0); Platelet Count 243 K/mcL (140-400); Red Blood Count 3.46 M/mcL (3.82-4.97); Red Cell Distribution Width 13.7 % (11.5-14.5); Segmented Neutrophils % 74.8 %
[2017-04-17 15:21] LABS: Albumin 2.7 g/dL (3.5-5.0); Albumin/Globulin Ratio 0.8 (1.1-2.2); Bilirubin,Direct 0.3 mg/dL (0.0-0.5); Bilirubin,Indirect 0.1 mg/dL (0.0-1.2); Bilirubin,Total 0.4 mg/dL (0.2-1.2); Globulin 3.4 g/dL (2.4-3.5); Total Protein 6.1 g/dL (6.0-8.3)
[2017-04-17 17:22] LABS: Bilirubin,Urine Negative (Negative); Blood,Urine Negative (Negative); Clarity,Urine Clear (Clear); Color,Urine Yellow (Yellow); Glucose,Urine (UA) Normal (Normal); Ketones,Urine Negative (Negative); Leukocyte Esterase,Urine Small (Negative); Nitrite,Urine Negative (Negative); PH,Urine 6.5 pH Units (5.0-8.0); Protein,Urine Negative (Neg-Trace); Specific Gravity,Urine > 1.030 (1.010-1.025); Urobilinogen,Urine Normal (Normal)
[2017-04-17 17:36] LABS: Bacteria,Urine Few per hpf (None-Few); Squamous Epithelial Cell,Urine Few per lpf (None-Few); WBC,Urine 0-3 per hpf (0-3)
[2017-04-18] MEDS: *HR* HYDROmorphone 2 MG/ML SYRINGE IVP PRN (00:42)
[2017-04-18] MEDS: *HR* HYDROmorphone (PF) 1 MG/ML SYRINGE IVP PRN ×3 (01:45→20:11)
[2017-04-18] MEDS: 0.9 % Sodium Chloride 1,000 ML IVC SCH (01:46)
[2017-04-18] MEDS: *HR* OxyCODONE Immed Rel 5 MG TABLET PO PRN ×2 (05:59→21:41)
[2017-04-18] MEDS: Aspirin 81 MG TAB.CHEW PO SCH (08:48)
[2017-04-18] MEDS: Gabapentin 300 MG CAPSULE PO SCH ×3 (08:48→20:10)
[2017-04-18] MEDS ORDERED: diazePAM 10 MG TABLET PO ONE (09:41)
[2017-04-18 12:49] LABS: Hepatitis A Antibody IgM Nonreactive (Nonreactive); Hepatitis B Core IgM Nonreactive (Nonreactive); Hepatitis B Surface Antigen Nonreactive (Nonreactive); Hepatitis C Virus Antibody Nonreactive (Nonreactive)
--- NOTE | 2017-04-18 14:21 | Internal Med Progress Note ---
Date of Encounter: 04/18/17 Time of Encounter: 10:00 - Assessment and plan (1) Abdominal pain Current Visit: Yes Status: Acute Assessment and plan: Right-sided abdominal pain radiating into legs and upper thighs. Uncertain etiology. CT scan of the abdomen and pelvis did not show any acute abnormalities in her abdomen and pelvis. She did have liver lesions which could be benign cysts. Hepatitis viral serologies negative. Patient does not have any significant risk factors for malignancy. This can be followed further as outpatient. Given that the pain is radiating from her abdomen and down into her thighs, concern for abdominal wall/muscle pain. We will treat symptomatically. Patient's urine is positive for leukocyte esterase. She does not have any dysuria but did have a Benoit catheter in place for surgery. Will treat empirically with short course of antibiotics while awaiting cultures. At this time, no clear identifiable cause has been found for the patient's abdominal pain. However acute intra-abdominal causes for her pain have been ruled out. Given her limited mobility, consider placing her on DVT prophylaxis with subcutaneous heparin. Qualifiers: Abdominal location: right lower quadrant Qualified Code(s): R10.31 - Right lower quadrant pain (2) CAD (coronary artery disease) Current Visit: No Status: Chronic Assessment and plan: No chest pain. Continue aspirin and statin and beta mera Qualifiers: Coronary Disease-Associated Artery/Lesion type: [place] artery [place] vs. transplanted heart: [place] heart Associated angina: without angina Qualified Code(s): I25.10 - Atherosclerotic heart disease of [place] coronary artery without angina pectoris (3) Spinal stenosis of lumbar region Current Visit: Yes Status: Acute Assessment and plan: Status post L-spine fusion at L3-L4. (4) DVT prophylaxis Current Visit: Yes Status: Acute - Subjective Interval history: Patient is sitting up in chair. Continues to have right sided abdominal pain. Today she states that her pain radiates from just below her right ribs down into her leg and worsens with certain motions especially while getting up from bed to her chair and so on. No nausea or vomiting. No diarrhea. No dysuria. - Constitutional Vitals: Temp Pulse Resp BP Pulse Ox 98.1 F 85 14 137/84 94 04/18/17 13:29 04/18/17 13:29 04/18/17 13:29 04/18/17 13:29 04/18/17 13:29 General appearance: Present: A&O X 3, answers questions appropriately - Neck Neck exam general surgery: Present: supple, trachea midline. Absent: lymphadenopathy - Respiratory Respiratory exam: Present: CTAB. Absent: accessory muscle use, rales, rhonchi, wheezes - Cardiovascular Cardiovascular exam: Present: RRR, +S1, +S2. Absent: diastolic murmur, gallop, rubs, systolic murmur - GI/Abdominal GI/Abdominal exam: Present: normal bowel sounds, soft, tenderness (Mainly in the right lower quadrant today), no peritoneal signs. Absent: distended - Extremities Exam Extremities exam: Present: warm, radial pulses palpable and symmetrical. Absent : calf tenderness, cyanotic, pedal edema Internal Medicine: Result - Labs CBC & Chem 7: 04/17/17 14:44 04/17/17 06:11 Labs: Short CBC 04/17/17 Range/Units 14:44 WBC 9.1 (4.3-11.1) K/mcL Hgb 9.7 L (11.5-15.4) g/dL Hct 29.5 L (35.3-44.9) % Plt Count 243 (140-400) K/mcL Neutrophils # 6.8 (1.6-8.9) K/mcL Liver Function 04/17/17 Range/Units 14:44 Total Bilirubin 0.4 (0.2-1.2) mg/dL Direct Bilirubin 0.3 (0.0-0.5) mg/dL AST 17 (5-34) Units/L ALT 10 (0-55) Units/L Alkaline Phosphatase 86 (38-126) Units/L Albumin 2.7 L (3.5-5.0) g/dL Urine 04/17/17 Range/Units 15:50 Urine Color Yellow (Yellow) Urine Clarity Clear (Clear) Urine pH 6.5 (5.0-8.0) pH Units Ur Specific [place] > 1.030 H (1.010-1.025) Urine Protein Negative (Neg-Trace) mg/dL Urine Glucose (UA) Normal (Normal) mg/dL - Impressions Impressions Abdomen/Pelvis CT 04/17/17 13:37 IMPRESSION: Postoperative changes are seen related to recent L3-L4 discectomy, laminectomy, and posterior spinal fusion. There is a small amount of soft tissue gas seen within the paraspinal musculature, as well as the right psoas muscle and felt likely postsurgical in nature. No loculated rim enhancing fluid collection is seen to suggest an abscess at this time. There is also a small amount of associated subcutaneous soft tissue edema which may be related to developing seroma. Diffuse atherosclerotic disease without acute vascular abnormality. Mild intrahepatic ductal dilation, without definite obstruction. Correlate with liver enzymes. The common bile duct and pancreatic duct are not dilated. There are several small hypoattenuating lesions seen within the liver, with an overall benign appearance though measuring 2-3 mm in size. If this patient is at high risk for malignancy, this could be followed up in 6 months, versus if low to moderate risk per ACR criteria, no follow-up needed. D/ / Bry Vazquez MD / Bry Vazquez MD Interpreting Provider: Bry Vazquez MD - VTE Documentation of Mechanical Device: Intermittent pneumatic compression device Consult Discharge Plan - Plan [facility]errals: [facility] [Primary Care Provider] -
--- NOTE | 2017-04-18 15:40 | Spine Progress Note ---
Date of Encounter: 04/18/17 Time of Encounter: 15:38 Subjective Principal diagnosis: Lumbar stenosis, status post lumbar fusion Interval history: Currently complains of right upper quadrant and periumbilical pain. Denies fevers, chills or nausea or vomiting. Afebrile vital signs are stable. Incision is clean dry and intact. Neurovascularly intact with regard to bilateral lower extremities. Fires all upper and lower extremity motor groups. She has tenderness to palpation in the periumbilical and right upper quadrant region. No masses detected. No true rebound tenderness. Some guarding with palpation. Assessment :stable. Plan mobilize ,continue analgesics, Appreciate hospitalist input. Laboratory studies unremarkable. Abdomen and pelvis CT unremarkable. Discharge planning. Objective Vital signs: Vital Signs Temp Pulse Resp BP Pulse Ox 04/18/17 13:29 98.1 F 85 14 137/84 94 04/18/17 10:06 98.4 F 78 18 132/84 96 04/18/17 08:35 98.5 F 83 18 151/93 94 04/17/17 23:32 98.7 F 84 18 130/81 93 04/17/17 19:31 98.2 F 83 15 113/70 99 Intake and Output 04/17/17 04/18/17 04/18/17 23:59 07:59 15:59 Intake Total 1400 / 1400 50 / 50 340 / 340 Output Total 200 / 200 400 / 400 400 / 400 Balance 1200 / 1200 -350 / -350 -60 / -60 Intake: IV Fluids 1000 / 1000 100 / 100 0.9 % Sodium Chloride 1, 1000 / 1000 000 ML @ 100 mls/hr IVC . Q10H MARIA ISABEL Rx#:[id number] Rocephin 1,000 MG In 100 / 100 Dextrose 5% (Minibag+) 100 ML 100 ML @ 200 mls/ hr IVPB DAILY MARIA ISABEL Rx#: [id number] Oral 400 / 400 50 / 50 240 / 240 Output: Urine 200 / 200 400 / 400 400 / 400 Other: # Voids 1 - Labs CBC & BMP: 04/17/17 14:44 04/17/17 06:11 Labs: Abnormal lab results RBC 3.46 M/mcL (3.82-4.97) L 04/17/17 14:44 Hgb 9.7 g/dL (11.5-15.4) L 04/17/17 14:44 Hct 29.5 % (35.3-44.9) L 04/17/17 14:44 Nucleated RBCs/100 WBC 0.2 /100 WBC (0) H 04/17/17 14:44 Chloride 96 mEq/L (98-109) L 04/17/17 06:11 Carbon Dioxide 32 mEq/L (19-29) H 04/17/17 06:11 Glucose 104 mg/dL (70-99) H 04/17/17 06:11 Albumin 2.7 g/dL (3.5-5.0) L 04/17/17 14:44 Albumin/Globulin Ratio 0.8 (1.1-2.2) L 04/17/17 14:44 Ur Specific [place] > 1.030 (1.010-1.025) H 04/17/17 15:50 Ur Leukocyte Esterase Small (Negative) H 04/17/17 15:50 Ur Culture Indicated? YES (NO) A 04/17/17 15:50 Consult Discharge Plan - Plan Referrals: [facility] [Primary Care Provider] -
[2017-04-18] MEDS ORDERED: diazePAM 5 MG TABLET PO PRN (18:13)
[2017-04-18] MEDS ORDERED: diazePAM 5 MG TABLET PO ONE (18:13)
[2017-04-18] MEDS ORDERED: *HR* HYDROmorphone (PF) 1 MG/ML SYRINGE IVP PRN (18:18)
[2017-04-19] MEDS: Acetaminophen 325 MG TABLET PO PRN ×2 (00:09→16:57)
[2017-04-19] MEDS: *HR* OxyCODONE Immed Rel 5 MG TABLET PO PRN ×3 (05:10→18:14)
[2017-04-19] MEDS: Aspirin 81 MG TAB.CHEW PO SCH (09:28)
[2017-04-19] MEDS: Gabapentin 300 MG CAPSULE PO SCH ×3 (09:29→21:15)
--- NOTE | 2017-04-19 10:03 | Orthopedics Progress Note ---
Date of Encounter: 04/19/17 Time of Encounter: 10:01 Subjective Principal diagnosis: Lumbar stenosis, status post lumbar fusion Interval history: S: Patient indicates that she is doing much better this morning. Pain is very well -controlled. No new complaints. Appreciate hospitalist input. O: Afebrile and her vital signs are stable. Lumbar dressing is clean, dry, and intact. She is wearing her brace. Neurovascularly intact to bilateral lower extremity. A: Post posterior lumbar interbody fusion; appreciate hospitalist input P: Presumed postoperative care, mobilization and analgesia Anticipate discharge to rehabilitation on Friday. Objective Vital signs: Vital Signs Temp Pulse Resp BP Pulse Ox 04/19/17 06:39 98 F 89 16 134/68 95 04/19/17 03:35 97.8 F 86 16 137/63 94 04/18/17 23:59 98.8 F 98 18 134/83 93 04/18/17 20:10 98.1 F 99 14 136/94 96 04/18/17 13:29 98.1 F 85 14 137/84 94 04/18/17 10:06 98.4 F 78 18 132/84 96 Intake and Output 04/18/17 04/19/17 04/19/17 23:59 07:59 15:59 Intake Total 200 / 200 300 / 300 Balance 200 / 200 300 / 300 Intake: Oral 200 / 200 300 / 300 Other: # Voids 1 1 Weight 63.401 kg Patient Weight 04/19/17 23:59 Weight 63.401 kg - Labs CBC & BMP: 04/17/17 14:44 04/17/17 06:11 Labs: Abnormal lab results RBC 3.46 M/mcL (3.82-4.97) L 04/17/17 14:44 Hgb 9.7 g/dL (11.5-15.4) L 04/17/17 14:44 Hct 29.5 % (35.3-44.9) L 04/17/17 14:44 Nucleated RBCs/100 WBC 0.2 /100 WBC (0) H 04/17/17 14:44 Chloride 96 mEq/L (98-109) L 04/17/17 06:11 Carbon Dioxide 32 mEq/L (19-29) H 04/17/17 06:11 Glucose 104 mg/dL (70-99) H 04/17/17 06:11 Albumin 2.7 g/dL (3.5-5.0) L 04/17/17 14:44 Albumin/Globulin Ratio 0.8 (1.1-2.2) L 04/17/17 14:44 Ur Specific [place] > 1.030 (1.010-1.025) H 04/17/17 15:50 Ur Leukocyte Esterase Small (Negative) H 04/17/17 15:50 Ur Culture Indicated? YES (NO) A 04/17/17 15:50 - VTE Documentation of Mechanical Device: Intermittent pneumatic compression device Consult Discharge Plan - Plan [facility]errals: [facility] [Primary Care Provider] -
[2017-04-19] MEDS: *HR* OxyCODONE ER (12 HR) 10 MG TABLET PO SCH ×2 (10:16→21:15)
--- NOTE | 2017-04-19 10:58 | Internal Med Progress Note ---
Date of Encounter: 04/19/17 Time of Encounter: 09:30 - Assessment and plan (1) Abdominal pain Current Visit: Yes Status: Acute Assessment and plan: Appears to be musculoskeletal pain. Improves with Flexeril and Valium. Given the severity of patient's pain in her high use of narcotic pain medications, we will place her on long-acting medications and try to decrease short-acting medications for better pain relief long-term. Venous Doppler of the right leg does not show any deep vein thrombosis. No other acute etiology has been identified. Continue supportive care and pain control. Physical therapy. Moderate risk for complications. Qualifiers: Abdominal location: right lower quadrant Qualified Code(s): R10.31 - Right lower quadrant pain (2) CAD (coronary artery disease) Current Visit: No Status: Chronic Assessment and plan: No chest pain. Continue current management Qualifiers: Coronary Disease-Associated Artery/Lesion type: [place] artery [place] vs. transplanted heart: [place] heart Associated angina: without angina Qualified Code(s): I25.10 - Atherosclerotic heart disease of [place] coronary artery without angina pectoris (3) Spinal stenosis of lumbar region Current Visit: Yes Status: Acute Assessment and plan: Status post lumbar spine fusion. Plan to discharge to rehabilitation on Friday. (4) DVT prophylaxis Current Visit: Yes Status: Acute - Subjective Interval history: Patient complains of pain this morning and is upset that it is not being controlled well. She is concerned that we are not waking her up to give her pain medications and she feels like she is getting backed up with the pain as a result. Pain is again mostly in the right lower abdomen radiating down into her leg. Spasmodic. No nausea or vomiting. Tolerating diet well. - Constitutional Vitals: Temp Pulse Resp BP Pulse Ox 98 F 89 16 134/68 95 04/19/17 06:39 04/19/17 06:39 04/19/17 06:39 04/19/17 06:39 04/19/17 06:39 General appearance: Present: A&O X 3, answers questions appropriately - Respiratory Respiratory exam: Present: CTAB. Absent: accessory muscle use, rales, rhonchi, wheezes - Cardiovascular Cardiovascular exam: Present: RRR, +S1, +S2. Absent: diastolic murmur, gallop, rubs, systolic murmur - GI/Abdominal GI/Abdominal exam: Present: normal bowel sounds, soft, tenderness (Very tender in the right lower quadrant to superficial palpation. ), no peritoneal signs. Absent: distended - Extremities Exam Extremities exam: Present: warm, radial pulses palpable and symmetrical. Absent : calf tenderness, cyanotic, pedal edema - Neurological Exam Neurological exam: Present: alert, oriented X3, no focal deficits. Absent: facial droop, speech deficit Internal Medicine: Result - Labs CBC & Chem 7: 04/17/17 14:44 04/17/17 06:11 - VTE Documentation of Mechanical Device: Intermittent pneumatic compression device Consult Discharge Plan - Plan [facility]errals: [facility] [Primary Care Provider] -
[2017-04-19] MEDS: *HR* HYDROmorphone (PF) 1 MG/ML SYRINGE IVP PRN (12:19)
[2017-04-20] MEDS: *HR* OxyCODONE Immed Rel 5 MG TABLET PO PRN ×2 (03:02→23:27)
[2017-04-20] MEDS: *HR* HYDROmorphone (PF) 1 MG/ML SYRINGE IVP PRN ×3 (06:41→19:15)
[2017-04-20] MEDS: *HR* OxyCODONE ER (12 HR) 10 MG TABLET PO SCH ×2 (09:08→21:40)
[2017-04-20] MEDS: Aspirin 81 MG TAB.CHEW PO SCH (09:08)
[2017-04-20] MEDS: Gabapentin 300 MG CAPSULE PO SCH ×3 (09:08→21:40)
--- NOTE | 2017-04-20 10:14 | Orthopedics Progress Note ---
Date of Encounter: 04/20/17 Time of Encounter: 10:13 Subjective Principal diagnosis: Lumbar stenosis, status post lumbar fusion Interval history: S: Continuing to do well. Has been walking the halls with no issue. O: Afebrile and her vital signs are stable. Lumbar dressing is clean, dry, and intact. She is wearing her brace. Neurovascularly intact to bilateral lower extremity. A: Post posterior lumbar interbody fusion P: Presumed postoperative care, mobilization and analgesia Anticipate discharge to rehabilitation tomorrow. Objective Vital signs: Vital Signs Temp Pulse Resp BP Pulse Ox 04/20/17 06:53 98.3 F 84 16 114/68 96 04/20/17 00:00 98.0 F 87 17 110/73 95 04/19/17 21:36 94 04/19/17 18:58 98.3 F 91 17 110/70 94 04/19/17 15:55 98.8 F 89 16 122/81 97 04/19/17 10:33 98.3 F 92 18 129/87 96 Intake and Output 04/19/17 04/20/17 04/20/17 23:59 07:59 15:59 Output Total 250 / 250 Balance -250 / -250 Output: Urine 250 / 250 - Labs CBC & BMP: 04/17/17 14:44 04/17/17 06:11 Labs: Abnormal lab results RBC 3.46 M/mcL (3.82-4.97) L 04/17/17 14:44 Hgb 9.7 g/dL (11.5-15.4) L 04/17/17 14:44 Hct 29.5 % (35.3-44.9) L 04/17/17 14:44 Nucleated RBCs/100 WBC 0.2 /100 WBC (0) H 04/17/17 14:44 Chloride 96 mEq/L (98-109) L 04/17/17 06:11 Carbon Dioxide 32 mEq/L (19-29) H 04/17/17 06:11 Glucose 104 mg/dL (70-99) H 04/17/17 06:11 Albumin 2.7 g/dL (3.5-5.0) L 04/17/17 14:44 Albumin/Globulin Ratio 0.8 (1.1-2.2) L 04/17/17 14:44 Ur Specific [place] > 1.030 (1.010-1.025) H 04/17/17 15:50 Ur Leukocyte Esterase Small (Negative) H 04/17/17 15:50 Ur Culture Indicated? YES (NO) A 04/17/17 15:50 - VTE Documentation of Mechanical Device: Intermittent pneumatic compression device Consult Discharge Plan - Plan Referrals: [facility] [Primary Care Provider] -
--- NOTE | 2017-04-20 11:40 | Internal Med Progress Note ---
Date of Encounter: 04/20/17 Time of Encounter: 08:40 - Assessment and plan (1) Abdominal pain Current Visit: Yes Status: Acute Assessment and plan: Improving. Likely musculoskeletal spasmodic pain. Continue Flexeril scheduled. We will wean down intravenous narcotic medications. No acute intra- abdominal pathology. Qualifiers: Abdominal location: right lower quadrant Qualified Code(s): R10.31 - Right lower quadrant pain (2) CAD (coronary artery disease) Current Visit: No Status: Chronic Qualifiers: Coronary Disease-Associated Artery/Lesion type: [place] artery [place] vs. transplanted heart: [place] heart Associated angina: without angina Qualified Code(s): I25.10 - Atherosclerotic heart disease of [place] coronary artery without angina pectoris (3) Spinal stenosis of lumbar region Current Visit: Yes Status: Acute Assessment and plan: Orthopedics and spine surgery managing. Plan for Placement to skilled rehabilitation (4) DVT prophylaxis Current Visit: Yes Status: Acute - Subjective Interval history: Patient is doing better today. Abdominal Pain is better controlled. No other new complaints at this time. - Constitutional Vitals: Temp Pulse Resp BP Pulse Ox 98.3 F 84 16 114/68 96 04/20/17 06:53 04/20/17 06:53 04/20/17 06:53 04/20/17 06:53 04/20/17 06:53 General appearance: Present: A&O X 3, answers questions appropriately - Respiratory Respiratory exam: Present: CTAB. Absent: accessory muscle use, rales, rhonchi, wheezes - Cardiovascular Cardiovascular exam: Present: RRR, +S1, +S2. Absent: diastolic murmur, gallop, rubs, systolic murmur - GI/Abdominal GI/Abdominal exam: Present: normal bowel sounds, soft, tenderness (Right lower quadrant), no peritoneal signs. Absent: distended - Extremities Exam Extremities exam: Present: warm, radial pulses palpable and symmetrical. Absent : calf tenderness, cyanotic, pedal edema - Back Exam Additional comments: Back brace in place Internal Medicine: Result - Labs CBC & Chem 7: 04/17/17 14:44 04/17/17 06:11 - VTE Documentation of Mechanical Device: Intermittent pneumatic compression device Consult Discharge Plan - Plan Referrals: [facility] [Primary Care Provider] -
[2017-04-20] MEDS: Acetaminophen 325 MG TABLET PO PRN (12:09)
[2017-04-21] MEDS: Acetaminophen 325 MG TABLET PO PRN (00:47)
[2017-04-21] MEDS: *HR* HYDROmorphone (PF) 1 MG/ML SYRINGE IVP PRN (01:21)
[2017-04-21] MEDS: *HR* OxyCODONE Immed Rel 5 MG TABLET PO PRN (06:02)
[2017-04-21 06:33] VITALS: BP 93/71
--- NOTE | 2017-04-21 08:31 | Venous Imaging Report ---
LE Venous Duplex Patient Name:Nicole Naylor Order Number:[id number] Procedure Date:04/18/2017 Date:1955ge:61 yrs Gender:Female Location:[facility] Room #: 3NE29 Clinical Documentation Manager:Kalli Herrera RDCS Referring MD:Agnieszka Gandhi MD director orange:[facility] [place] Reading MD:Julito Boothe MD Primary Indications:hx DVT Secondary Indications: Risk Factors Yes/No Hx of DVT Impressions: Right lower extremity: normal superficial and deep exam. Findings Prior Study: No prior study available for comparison. Lower Extremity Venous Duplex Side Vein Compress Spontaneous Flow Augment Diameter (cm) Depth (cm) Right Distal Iliac Normal Yes Phasic Yes Right Common Femoral Normal Yes Phasic Yes Right Superficial Femoral Normal Yes Phasic Yes Right Popliteal Normal Yes Phasic Yes Right Posterior Tibial Normal Yes Phasic Yes Right Peroneal Normal Yes Phasic Yes Right Saphenofemoral [place] Normal Yes Phasic Yes Right Great Saphenous Normal Yes Phasic Yes Right Lesser Saphenous Normal Yes Phasic Yes Left Common Femoral Normal Yes Phasic Yes Updated by Julito Boothe MD on 04/19/2017 4:18:14 PM electronically signed on 04/19/2017 4:18:36 PM with status of Final
[2017-04-21] MEDS: Aspirin 81 MG TAB.CHEW PO SCH (09:54)
[2017-04-21] MEDS: *HR* OxyCODONE ER (12 HR) 10 MG TABLET PO SCH (09:54)
[2017-04-21] MEDS: Gabapentin 300 MG CAPSULE PO SCH (09:54)
--- NOTE | 2017-04-21 10:20 | Discharge Summary ---
Date of Encounter: 04/21/17 Time of Encounter: 10:15 - Discharge Diagnosis (1) Spinal stenosis of lumbar region Priority: Primary Status: Chronic (2) CAD (coronary artery disease) Priority: Secondary Status: Chronic Qualifiers: Coronary Disease-Associated Artery/Lesion type: [place] artery [place] vs. transplanted heart: [place] heart Associated angina: without angina Qualified Code(s): I25.10 - Atherosclerotic heart disease of [place] coronary artery without angina pectoris (3) Abdominal pain Priority: Secondary Status: Acute Comments: resolved Qualifiers: Abdominal location: right lower quadrant Qualified Code(s): R10.31 - Right lower quadrant pain - Discharge Medications Home Medications: Atorvastatin Calcium [Lipitor] 20 mg PO DAILY 01/23/16 [History] Carvedilol 12.5 mg PO BID 01/23/16 [History] Cyclobenzaprine HCl 10 mg PO BID 01/23/16 [History] Gabapentin [Neurontin] 600 mg PO TID 01/23/16 [History] Nitroglycerin [Nitrostat] 0.4 mg SL Q5M PRN 01/23/16 [History] Aspirin 81 mg PO DAILY #30 tab.chew 01/24/16 [Rx] Clopidogrel [Plavix] 75 mg PO DAILY #30 tablet 01/24/16 [Rx] Allergies/Adverse Reactions: 3 Allergy/AdvReac Type Severity Reaction Status Date / Time adhesive Allergy Blister Verified 04/14/17 06:54 bacitracin Allergy RASH/BLISTE Verified 04/14/17 07:04 [From Neosporin RS ([id number])] bee venom protein (honey bee) Allergy THROAT Verified 04/14/17 07:04 SWELLING Cortisone Allergy Rash Verified 01/23/16 09:32 Neomycin Allergy RASH/BLISTE Verified 04/14/17 07:04 [From Neosporin RS ([id number])] polymyxin B Allergy RASH/BLISTE Verified 04/14/17 07:04 [From Neosporin RS ([id number])] bupropion [From Wellbutrin] AdvReac Anxiety Verified 01/23/16 09:34 morphine AdvReac See Verified 04/14/17 06:54 Comments - Impressions ITS Impressions Lumbar Spine X-Ray 04/14/17 00:00 IMPRESSION: Single lateral view of the lumbar spine demonstrates postsurgical changes of L3 through L5 as above. D/ / Chuck Dhillon MD / Chuck Dhillon MD Interpreting Provider: Chuck Dhillon MD X-Ray 04/17/17 05:50 IMPRESSION: Indeterminate bowel-gas pattern with possible descending colitis. D/ / Adelso Helton MD / Adelso Helton MD Interpreting Provider: Adelso Helton MD Lumbar Spine X-Ray 04/17/17 08:15 IMPRESSION: 1. Decreased bone mineral density. Stable multilevel degenerative changes and decreased bone mineral density. 2. Stable L3-4 discectomy and posterior fusion. 3. Stable prior L4-5 discectomy. D/ / 04/17/2017 12:08:20 Med Bush MD / cat Interpreting Provider: Med Bush MD Abdomen/Pelvis CT 04/17/17 13:37 IMPRESSION: Postoperative changes are seen related to recent L3-L4 discectomy, laminectomy, and posterior spinal fusion. There is a small amount of soft tissue gas seen within the paraspinal musculature, as well as the right psoas muscle and felt likely postsurgical in nature. No loculated rim enhancing fluid collection is seen to suggest an abscess at this time. There is also a small amount of associated subcutaneous soft tissue edema which may be related to developing seroma. Diffuse atherosclerotic disease without acute vascular abnormality. Mild intrahepatic ductal dilation, without definite obstruction. Correlate with liver enzymes. The common bile duct and pancreatic duct are not dilated. There are several small hypoattenuating lesions seen within the liver, with an overall benign appearance though measuring 2-3 mm in size. If this patient is at high risk for malignancy, this could be followed up in 6 months, versus if low to moderate risk per ACR criteria, no follow-up needed. D/ / Bry Vazquez MD / Bry Vazquez MD Interpreting Provider: Bry Vazquez MD Date of admission: 04/14/17 13:08 [facility] care physician: [facility] Consults: 04/14/17 13:00 Consult to Occupational Therapy [CONS] Routine Comment: Evaluate, develop and implement POC Reason for Consult: Postoperative Consult to Physical Therapy [CONS] Routine Comment: Evaluate, develop and implement POC Reason for Consult: Postoperative Consult to Spine Navigator [CONS] [CONS] Routine 04/17/17 10:59 Consult to Expander [CONS] Routine Reason for SW Consult: d/c planning 04/17/17 12:29 Consult to Hospitalist [CONS] Routine Consulting Provider: Hospitalist George Reason for Consult: abdominal pain Call Completed: Yes Discharging clinician: Александр Scott Jr Anticipated date of discharge: 04/21/17 - Patient Status Disposition: Transfer Inpatient Rehab Fac Condition: Good Functional capacity at discharge: uses cane/walker Overall status at discharge: patient is progressing back to baseline - Discharge Instructions Follow Up With: [facility] [Primary Care Provider] - Additional Instructions: Lumbar Please call [facility] ([phone]), your Primary Care Physician, or report to the ER if you have any of the following symptoms: Fever greater that 101.5, increased pain/redness/drainage/odor for your incision site or any other concerning symptoms. ACTIVITY * May Shower * No Tub Baths * No lifting greater than 10 pounds * No Smoking * No Swimming * No off Ground Activities (Running, Climbing, Ladders, Horseback Riding) * No Driving MEDICATIONS: Upon discharge resume your home medications. Take all the medications as prescribed. Take a stool softener if taking narcotic pain medications. Stool softeners are only effective if you drink enough fluids. Drink 6-8 glass of water or fluids a day, unless this is not allowed for another health problem. Despite using stool softeners, if you haven't had a bowel movement in 3 days, please switch to a gentle laxative. Gentle laxatives are sold over the counter. You should have a bowel movement within 24 hours, if not call the office. You will be discharged from the hospital with a prescription for pain medication. You are encouraged to decrease the use of narcotic pain medication as tolerated. Should you require a refill, please call the office. It is best to call 48-72 hours in advance of needing a prescription refill so you don't run out of medication. WOUND CARE: Remove Dressing Tomorrow. Leave incision open to air. Pat dry when you get out of the shower. FOLLOW-UP: Please follow up with your surgeon in the orthopedic clinic in 2 weeks from the day of surgery. References: [employer] (www.apta.org) - Diet and Activity Activity: as per physical therapy Diet: advance to your usual diet - Hospital Course Hospital course: Ms. Naylor is a 61 year old female The patient had an uneventful postoperative course. Progressed from intravenous analgesic needs to oral analgesic needs only. Remained neurovascularly intact and mobilized satisfactorily. All intraoperative and/or postoperative radiographic studies were satisfactory. Patient is discharged with plan for rehabilitation and follow-up in 2 weeks post discharge on analgesic medication and patient's home medications. - Time Spent with Patient Total time spent providing and/or coordinating discharge services: - VTE Documentation of Mechanical Device: Intermittent pneumatic compression device
== END 2017-04-21 11:45 | DRG 460 ==
LOC: SAMDAY 06:10 → 3NENU 13:08
PROVIDERS: ADMIT Orthopaedic Surgery Orthopaedic Surgery of the Spine; ATTEND Orthopaedic Surgery Orthopaedic Surgery of the Spine

== ENCOUNTER 2017-11-19 16:49 | Inpatient (IN) ==
[2017-11-19 18:06] LABS: Basophils % 0.1 %; Eosinophils # 0.1 K/mcL (0.0-0.6); Eosinophils % 0.5 %; Hematocrit 39.8 % (35.3-44.9); Hemoglobin 13.6 g/dL (11.5-15.4); Immature Granulocytes % 0.4 % (0-4); Lymphocytes # 0.9 K/mcL (0.6-4.6); Lymphocytes % 6.7 %; Mean Corpuscular HGB Conc 34.2 g/dL (31.6-35.5); Mean Corpuscular Hemoglobin 28.1 pg (28.0-33.3); Mean Corpuscular Volume 82.2 fL (83.0-100.0); Mean Platelet Volume 11.6 fL (9.4-12.4); Monocytes # 0.6 K/mcL (0.0-1.3); Monocytes % 4.1 %; Neutrophils # 12.2 K/mcL (1.6-8.9); Platelet Count 293 K/mcL (140-400); Red Blood Count 4.84 M/mcL (3.82-4.97); Red Cell Distribution Width 14.1 % (11.5-14.5); Segmented Neutrophils % 88.2 %
[2017-11-19 19:11] LABS: Alanine Aminotransferase 12 Units/L (7-52); Albumin 3.9 g/dL (3.5-5.7); Albumin/Globulin Ratio 1.3 (1.1-2.2); Alkaline Phosphatase 103 Units/L (34-104); Aspartate Amino Transferase 16 Units/L (13-39); BUN/Creatinine Ratio 10 (6-26); Bilirubin,Direct 0.1 mg/dL (0.0-0.2); Bilirubin,Indirect 0.3 mg/dL (0.0-1.2); Bilirubin,Total 0.4 mg/dL (0.3-1.0); Blood Urea Nitrogen 8 mg/dL (8-23); Calcium 9.1 mg/dL (8.6-10.3); Carbon Dioxide 26 mEq/L (23-29); Chloride 98 mEq/L (98-107); Glucose 128 mg/dL (70-105); Lipase 23 Units/L (11-82); Osmolality,Calculated 268 (280-300); Potassium 3.7 mEq/L (3.5-5.1); Sodium 129 mEq/L (136-145); Total Protein 6.9 g/dL (6.4-8.9); eGFR For African Americans > 60 (> 60); eGFR For Non-African Americans > 60 (> 60)
[2017-11-19] MEDS ORDERED: 0.9 % Sodium Chloride 1,000 ML IVC ONE (19:15)
[2017-11-19] MEDS ORDERED: Ondansetron 4 MG/2 ML VIAL IVP ONE (19:31)
[2017-11-19] MEDS ORDERED: *HR* FentaNYL (PF) 100 MCG/2 ML VIAL IVP ONE (19:31)
[2017-11-19] MEDS ORDERED: Ipratropium/Albuterol Neb 3 ML IH ONE (19:33)
--- NOTE | 2017-11-19 19:33 | Emergency Department Note ---
Disposition Clinical Impression: Bowel perforation, Status post colonoscopy Abdominal pain Qualifiers: Abdominal location: generalized Qualified Code(s): R10.84 - Generalized abdominal pain Disposition: Admitted As Inpatient Condition: Undetermined Referrals: [facility] [Primary Care Provider] - Forms: ED Satisfaction Letter, Work/School Release Time of Disposition: 23:42 Abdominal Pain HPI - General Chief Complaint: ED Abdominal Pain Stated Complaint: abd pain s/p colonoscopy this am Time Seen by Provider: 11/19/17 19:12 Source: patient Mode of arrival: ambulatory Limitations: no limitations Nursing Notes Reviewed: Yes Vital Signs Reviewed: Yes - History of Present Illness HPI Narrative: 62 year old female who had a colonoscopy today with 5 polyps removed arrives to the ED complaining of severe abdominal pain that began roughly 4 hours ago. The patient called Dr. Ecsobedo's office who performed the colonoscopy told patient to come to the ED. Associated nausea. No rectal bleeding. no other complaints. Pain Scale: 9 - Related Data Home Medications Medication Instructions Recorded Confirmed Carvedilol 12.5 mg PO BID 01/23/16 11/19/17 Cyclobenzaprine HCl 10 mg PO BID 01/23/16 11/19/17 Gabapentin [Neurontin] 1,200 mg PO TID 01/23/16 11/19/17 Nitroglycerin [Nitrostat] 0.4 mg SL AD PRN 01/23/16 11/19/17 Atorvastatin [Lipitor] 40 mg PO HS 11/19/17 11/19/17 Cholecalciferol (D-3) [Vitamin D] 1,000 unit PO DAILY 11/19/17 11/19/17 Oxycodone HCl [Oxycontin] 10 mg PO Q8H 11/19/17 11/19/17 Previous Rx's Medication Instructions Recorded Aspirin 81 mg PO DAILY #30 tab.chew 01/24/16 Allergies Allergy/AdvReac Type Severity Reaction Status Date / Time adhesive Allergy Blister Verified 04/14/17 06:54 bacitracin Allergy RASH/BLISTE Verified 04/14/17 07:04 [From Neosporin RS ([id number])] bee venom protein (honey bee) Allergy THROAT Verified 04/14/17 07:04 SWELLING Cortisone Allergy Rash Verified 01/23/16 09:32 Neomycin Allergy RASH/BLISTE Verified 04/14/17 07:04 [From Neosporin RS ([id number]-[id number])] polymyxin B Allergy RASH/BLISTE Verified 04/14/17 07:04 [From Neosporin RS ([id number]-atz-[id number])] bupropion [From Wellbutrin] AdvReac Anxiety Verified 01/23/16 09:34 morphine AdvReac See Verified 04/14/17 06:54 Comments All systems ED: reviewed and negative except as stated. Constitutional: Denies: fever, chills, weakness ENT ED: Denies: congestion Cardiovascular: Denies: chest pain Respiratory: Denies: dyspnea Gastrointestinal: Reports: abdominal pain, nausea. Denies: vomiting, diarrhea, constipation, hematemesis, melena, hematochezia Genitourinary: Denies: urgency, dysuria Musculoskeletal: Denies: back pain, neck pain Integumentary: Denies: rash Neurological: Denies: headache, weakness, numbness Abdominal Pain PMH - Past Medical History Medical history: Reports: coronary artery disease, hyperlipidemia, myocardial infarction, other Female Surgical History: Reports: angioplasty/stent, other Psychiatric history: Reports: no psych history - Social History Smoking status: Current every day smoker Alcohol use: Reports: none Drug use: Reports: none Physical Exam - General Limitations: no limitations General appearance: alert, in no apparent distress - Head Head exam: atraumatic, normocephalic, normal inspection - Eye Eye exam: Present: normal appearance, PERRL, EOMI - ENT ENT exam: normal exam, normal oropharynx, mucous membranes moist - Neck Neck exam: Present: normal inspection, full ROM, trachea midline - Chest Chest inspection: Present: normal inspection, symmetric chest wall rise - Respiratory Respiratory exam: Present: wheezes (bilaterally) - Cardiovascular Cardiovascular exam: Present: normal rhythm, tachycardia, normal heart sounds - Abdominal Exam Abdominal exam: Present: soft, tenderness (Diffuse). Absent: distention, guarding, rebound, rigidity - Extremities Exam Extremities exam: Present: normal inspection, full ROM. Absent: tenderness, pedal edema Course - Consultations Consultation #1: Spoke to Dr. Colvin who requested a CT with oral contrast. Asked to be contacted after results. Time: 20:47 Consultation #2: Spoke with Dr. Colvin again after oral contrast CT scan which demonstrates no extravasation of contrast. He stated to admit the patient to the hospitalist and he will consult. Recommended pain control, nothing by mouth, IV antibiotics. The patient received first dose here in the emergency department. Time: 22:59 Vital Signs Temperature 98.4 F 11/19/17 17:01 Pulse Rate 113 11/19/17 17:01 Respiratory Rate 18 11/19/17 17:01 Blood Pressure 134/90 11/19/17 17:01 O2 Sat by Pulse Oximetry 92 11/19/17 17:01 Temperature 98.4 F 11/19/17 17:01 Pulse Rate 113 11/19/17 17:01 Respiratory Rate 18 11/19/17 17:01 Blood Pressure 134/90 11/19/17 17:01 O2 Sat by Pulse Oximetry 92 11/19/17 17:01 Oxygen Delivery Oxygen Delivery Room Air Abdominal Pain - MDM Narrative Medical decision making narrative: In the emergency department demonstrates free air within the abdomen. No oral contrast extravasation noted at this time. We will admit the patient to the hospitalist after consultation with surgery. Recommended IV antibiotics and nothing by mouth. Patient will be admitted to the hospital this at this time. Patient made aware and agrees to plan. No further questions or concerns noted at this time. Accepted by Dr. Frye. - Lab Data Lab results reviewed: Yes I reviewed the patient's lab results. Result diagrams: 11/19/17 17:36 11/19/17 17:36 Lab Results 11/19/17 11/19/17 11/19/17 Range/Units 17:36 17:36 19:43 WBC 13.8 H (4.3-11.1) K/mcL RBC 4.84 (3.82-4.97) M/mcL Hgb 13.6 (11.5-15.4) g/dL Hct 39.8 (35.3-44.9) % MCV 82.2 L (83.0-100.0) fL MCH 28.1 (28.0-33.3) pg MCHC 34.2 (31.6-35.5) g/dL RDW 14.1 (11.5-14.5) % Plt Count 293 (140-400) K/mcL MPV 11.6 (9.4-12.4) fL Immature Gran % 0.4 (0-4) % Seg Neutrophils % 88.2 % Lymphocytes % 6.7 % Monocytes % 4.1 % Eosinophils % 0.5 % Basophils % 0.1 % Neutrophils # 12.2 H (1.6-8.9) K/mcL Lymphocytes # 0.9 (0.6-4.6) K/mcL Monocytes # 0.6 (0.0-1.3) K/mcL Eosinophils # 0.1 (0.0-0.6) K/mcL Basophils # 0.0 (0.0-0.2) K/mcL Sodium 129 L (136-145) mEq/L Potassium 3.7 (3.5-5.1) mEq/L Chloride 98 (98-107) mEq/L Carbon Dioxide 26 (23-29) mEq/L BUN 8 (8-23) mg/dL Creatinine 0.78 (0.60-1.20) mg/dL Est GFR ( Amer) > 60 (> 60) Est GFR (Non-Af Amer) > 60 (> 60) BUN/Creatinine Ratio 10 (6-26) Glucose 128 H (70-105) mg/dL Calculated Osmolality 268 L (280-300) Calcium 9.1 (8.6-10.3) mg/dL Total Bilirubin 0.4 (0.3-1.0) mg/dL Direct Bilirubin 0.1 (0.0-0.2) mg/dL Indirect Bilirubin 0.3 (0.0-1.2) mg/dL AST 16 (13-39) Units/L ALT 12 (7-52) Units/L Alkaline Phosphatase 103 (34-104) Units/L Serum Total Protein 6.9 (6.4-8.9) g/dL Albumin 3.9 (3.5-5.7) g/dL Globulin 3.0 (2.4-3.5) g/dL Albumin/Globulin Ratio 1.3 (1.1-2.2) Lipase 23 (11-82) Units/L Urine Color Yellow (Yellow) Urine Clarity Clear (Clear) Urine pH 6.0 (5.0-8.0) pH Units Ur Specific [place] 1.019 (1.010-1.025) Urine Protein Negative (Neg-Trace) mg/dL Urine Glucose (UA) Normal (Normal) mg/dL Urine Ketones Negative (Negative) mg/dL Urine Blood Trace H (Negative) Urine Nitrite Negative (Negative) Urine Bilirubin Negative (Negative) Urine Urobilinogen Normal (Normal) mg/dL Ur Leukocyte Esterase Trace H (Negative) Urine Microscopic RBC 0-3 (0-3) per hpf Urine Microscopic WBC 0-3 (0-3) per hpf Ur Squamous Epith Cells Many H (None-Few) per lpf Urine Bacteria None Seen (None-Few) per hpf Hyaline Casts None Seen (None-Few) per lpf Ur Culture Indicated? NO. (NO) - Radiology Data Radiology results reviewed: Yes I reviewed the patient's radiology results. Abdomen/Pelvis CT 11/19/17 22:00 IMPRESSION: Unchanged punctate foci free air inferior to the diaphragm suspicious for perforated viscus. No new/ large foci of free air to suggest new perforation. Unchanged mild wall thickening of the sigmoid colon. D/ / Jeremi Thomas MD / Jeremi Thomas MD Interpreting Provider: Jeremi Thomas MD
[2017-11-19 19:59] LABS: Bilirubin,Urine Negative (Negative); Blood,Urine Trace (Negative); Clarity,Urine Clear (Clear); Color,Urine Yellow (Yellow); Glucose,Urine (UA) Normal (Normal); Ketones,Urine Negative (Negative); Leukocyte Esterase,Urine Trace (Negative); Nitrite,Urine Negative (Negative); Protein,Urine Negative (Neg-Trace); Specific Gravity,Urine 1.019 (1.010-1.025); Urobilinogen,Urine Normal (Normal)
[2017-11-19 20:03] LABS: Bacteria,Urine None Seen per hpf (None-Few); Hyaline Casts,Urine None Seen per lpf (None-Few); RBC,Urine 0-3 per hpf (0-3); Squamous Epithelial Cell,Urine Many per lpf (None-Few); WBC,Urine 0-3 per hpf (0-3)
[2017-11-19] MEDS ORDERED: Piperacillin/Tazobactam 3.375 GM in 0.9 % Sodium Chloride Mini Bag 100 ML IVPB ONE (20:43)
[2017-11-19] MEDS ORDERED: *HR* HYDROmorphone (PF) 1 MG/ML SYRINGE IVP ONE (21:32)
[2017-11-19] MEDS ORDERED: Ondansetron 4 MG/2 ML VIAL IVP PRN (22:09)
[2017-11-19] MEDS: *HR* HYDROmorphone (PF) 1 MG/ML SYRINGE IVP PRN (23:35)
--- NOTE | 2017-11-20 00:06 | Emergency Department Note ---
Disposition Clinical Impression: Bowel perforation, Status post colonoscopy Abdominal pain Qualifiers: Abdominal location: generalized Qualified Code(s): R10.84 - Generalized abdominal pain Disposition: Admitted As Inpatient Condition: Undetermined General Adult HPI - General Chief complaint: ED Abdominal Pain Stated complaint: abd pain s/p colonoscopy this am Time Seen by Provider: 11/19/17 19:12 Source: patient Mode of arrival: ambulatory Limitations: no limitations - History of Present Illness Pain Scale: 9 - Related Data Home Medications Medication Instructions Recorded Confirmed Carvedilol 12.5 mg PO BID 01/23/16 11/19/17 Cyclobenzaprine HCl 10 mg PO BID 01/23/16 11/19/17 Gabapentin [Neurontin] 1,200 mg PO TID 01/23/16 11/19/17 Nitroglycerin [Nitrostat] 0.4 mg SL AD PRN 01/23/16 11/19/17 Atorvastatin [Lipitor] 40 mg PO HS 11/19/17 11/19/17 Cholecalciferol (D-3) [Vitamin D] 1,000 unit PO DAILY 11/19/17 11/19/17 Oxycodone HCl [Oxycontin] 10 mg PO Q8H 11/19/17 11/19/17 Previous Rx's Medication Instructions Recorded Aspirin 81 mg PO DAILY #30 tab.chew 01/24/16 Allergies Allergy/AdvReac Type Severity Reaction Status Date / Time adhesive Allergy Blister Verified 04/14/17 06:54 bacitracin Allergy RASH/BLISTE Verified 04/14/17 07:04 [From Neosporin RS ([id number])] bee venom protein (honey bee) Allergy THROAT Verified 04/14/17 07:04 SWELLING Cortisone Allergy Rash Verified 01/23/16 09:32 Neomycin Allergy RASH/BLISTE Verified 04/14/17 07:04 [From Neosporin RS ([id number])] polymyxin B Allergy RASH/BLISTE Verified 04/14/17 07:04 [From Neosporin RS ([id number])] bupropion [From Wellbutrin] AdvReac Anxiety Verified 01/23/16 09:34 morphine AdvReac See Verified 04/14/17 06:54 Comments Constitutional: Denies: fever, chills, weakness ENT ED: Denies: congestion Cardiovascular: Denies: chest pain Respiratory: Denies: dyspnea Gastrointestinal: Reports: abdominal pain, nausea. Denies: vomiting, diarrhea, constipation, hematemesis, melena, hematochezia Genitourinary: Denies: urgency, dysuria Musculoskeletal: Denies: back pain, neck pain Integumentary: Denies: rash Neurological: Denies: headache, weakness, numbness Past Medical History - Past Medical History Medical history: Reports: coronary artery disease, hyperlipidemia, myocardial infarction, other Surgical history: Reports: angioplasty/stent, orthopedic, other, other Psychiatric history: Reports: no psych history - Social History Smoking Status: Current every day smoker Smokeless Tobacco Status: No Alcohol use: Reports: none Drug use: Reports: none Physical Exam - General Limitations: no limitations General appearance: alert, in no apparent distress Course Vital Signs Temperature 98.4 F 11/19/17 17:01 Pulse Rate 113 11/19/17 17:01 Respiratory Rate 18 11/19/17 17:01 Blood Pressure 134/90 11/19/17 17:01 O2 Sat by Pulse Oximetry 92 11/19/17 17:01 Temperature 98.4 F 11/19/17 17:01 Pulse Rate 113 11/19/17 17:01 Respiratory Rate 18 11/19/17 17:01 Blood Pressure 134/90 11/19/17 17:01 O2 Sat by Pulse Oximetry 92 11/19/17 17:01 Oxygen Delivery Oxygen Delivery Room Air Medical Decision Making - Lab Data Result diagrams: 11/19/17 17:36 11/19/17 17:36 Lab Results 11/19/17 11/19/17 11/19/17 Range/Units 17:36 17:36 19:43 WBC 13.8 H (4.3-11.1) K/mcL RBC 4.84 (3.82-4.97) M/mcL Hgb 13.6 (11.5-15.4) g/dL Hct 39.8 (35.3-44.9) % MCV 82.2 L (83.0-100.0) fL MCH 28.1 (28.0-33.3) pg MCHC 34.2 (31.6-35.5) g/dL RDW 14.1 (11.5-14.5) % Plt Count 293 (140-400) K/mcL MPV 11.6 (9.4-12.4) fL Immature Gran % 0.4 (0-4) % Seg Neutrophils % 88.2 % Lymphocytes % 6.7 % Monocytes % 4.1 % Eosinophils % 0.5 % Basophils % 0.1 % Neutrophils # 12.2 H (1.6-8.9) K/mcL Lymphocytes # 0.9 (0.6-4.6) K/mcL Monocytes # 0.6 (0.0-1.3) K/mcL Eosinophils # 0.1 (0.0-0.6) K/mcL Basophils # 0.0 (0.0-0.2) K/mcL Sodium 129 L (136-145) mEq/L Potassium 3.7 (3.5-5.1) mEq/L Chloride 98 (98-107) mEq/L Carbon Dioxide 26 (23-29) mEq/L BUN 8 (8-23) mg/dL Creatinine 0.78 (0.60-1.20) mg/dL Est GFR ( Amer) > 60 (> 60) Est GFR (Non-Af Amer) > 60 (> 60) BUN/Creatinine Ratio 10 (6-26) Glucose 128 H (70-105) mg/dL Calculated Osmolality 268 L (280-300) Calcium 9.1 (8.6-10.3) mg/dL Total Bilirubin 0.4 (0.3-1.0) mg/dL Direct Bilirubin 0.1 (0.0-0.2) mg/dL Indirect Bilirubin 0.3 (0.0-1.2) mg/dL AST 16 (13-39) Units/L ALT 12 (7-52) Units/L Alkaline Phosphatase 103 (34-104) Units/L Serum Total Protein 6.9 (6.4-8.9) g/dL Albumin 3.9 (3.5-5.7) g/dL Globulin 3.0 (2.4-3.5) g/dL Albumin/Globulin Ratio 1.3 (1.1-2.2) Lipase 23 (11-82) Units/L Urine Color Yellow (Yellow) Urine Clarity Clear (Clear) Urine pH 6.0 (5.0-8.0) pH Units Ur Specific [place] 1.019 (1.010-1.025) Urine Protein Negative (Neg-Trace) mg/dL Urine Glucose (UA) Normal (Normal) mg/dL Urine Ketones Negative (Negative) mg/dL Urine Blood Trace H (Negative) Urine Nitrite Negative (Negative) Urine Bilirubin Negative (Negative) Urine Urobilinogen Normal (Normal) mg/dL Ur Leukocyte Esterase Trace H (Negative) Urine Microscopic RBC 0-3 (0-3) per hpf Urine Microscopic WBC 0-3 (0-3) per hpf Ur Squamous Epith Cells Many H (None-Few) per lpf Urine Bacteria None Seen (None-Few) per hpf Hyaline Casts None Seen (None-Few) per lpf Ur Culture Indicated? NO. (NO) Attestation Statement - Attestation Attestation: I, Chemo Taylor MD, personally evaluated this patient and discussed their management with the resident physician. I reviewed the resident's note and agree with the documented findings, medical decision making, and plan of care. 62-year-old female presents to the emergency department with a complaint that she had a colonoscopy with removal of some polyps earlier today. After going home she developed lower abdominal pain which has gotten worse throughout the evening. No vomiting or diarrhea. No fever. On examination patient is a well-developed well-nourished female in no acute distress. She is alert and oriented 3. There is no cyanosis or diaphoresis. Breath sounds are clear and equal bilaterally. Heart regular rate and rhythm. Abdomen is soft with moderate diffuse lower abdominal tenderness with mild guarding. No rebound tenderness. No tympany or distention bowel sounds decreased. Labs reviewed. CT the abdomen and pelvis with IV contrast showed a small amount of free air. Dr. Tapia discussed the case with the surgeon interventional neuroradiologist, Dr. Colvin, and he requested a repeat CT with oral contrast. The repeat CT with oral contrast was obtained and was unchanged from the initial CT. Dr. Colvin was again consulted and recommended admission to the hospitalist service. The hospitalist, Dr. Frye, was consulted and accepted admission of the patient.
[2017-11-20] MEDS ORDERED: OXYCODONE Oral CONC 10 MG/0.5 ML ORAL.SYG SL PRN (02:19)
[2017-11-20] MEDS ORDERED: Naloxone 0.4 MG/ML INJ IVP PRN (02:19)
[2017-11-20] MEDS ORDERED: 0.9 % Sodium Chloride 1,000 ML IVC SCH ×2 (02:30→10:43)
[2017-11-20] MEDS ORDERED: Ipratropium/Albuterol Neb 3 ML IH PRN (04:24)
--- NOTE | 2017-11-20 04:29 | Internal Med History&Physical ---
Date of Encounter: 11/20/17 Time of Encounter: 01:30 Assessment and Plan (1) Abdominal pain Current visit: Yes Status: Acute Patient has abdominal pain. CT abdomen shows possible perforation. Consider acute peritonitis. - Keep patient nothing by mouth, IV fluid - Antibiotic, continue Zosyn - Give IV PPI - Surgical consult in a.m. Qualifiers: Abdominal location: generalized Qualified Code(s): R10.84 - Generalized abdominal pain (2) Bowel perforation Current visit: Yes Status: Acute Management as above (3) DVT prophylaxis Current visit: No Status: Acute EPCD. No anticoagulation at this point because patient may need surgery. Internal Medicine - H&P: HPI Chief complaint: Abdominal pain Admitted From: Home Plans for Post Hospital Care: Home History of present illness: Ms. Naylor is a 62 year old female with history of hypertension, CAD S/P stent , chronic back pain S/P back surgery, presented to ER for abdominal pain. Patient said she had a colonoscopy in the morning and had some polyps removed. Started around 2 PM, patient developed abdominal pain, which is located on lower part of abdomen, burning. Patient has nausea but no vomiting or diarrhea. Patient feel dizziness when getup. Patient denies a fever. In the emergency room, CT abdominal has been done, which shows free air under the diaphragm, suggestive perforation. Patient was admitted for further management. Surgical consult was called by ER. Patient was started Zosyn in ER. Past Med Surg Social Fam HX - Past Medical History Medical history: coronary artery disease, hyperlipidemia, myocardial infarction , other Psychiatric history: no psych history - Past Surgical History Surgical History: angioplasty/stent, orthopedic, other, other - Social History Smoking Status: Current every day smoker Packs per day: 1 Smokeless Tobacco Status: No Alcohol use: none Drug use: none - Family History Mother Hx Family Cardiac Disorders: Yes Hx Family Endocrine Disorder: Yes Internal Medicine - H&P: Meds Carvedilol 12.5 mg PO BID 01/23/16 [History] Cyclobenzaprine HCl 10 mg PO TID 01/23/16 [History] Gabapentin [Neurontin] 600 mg PO TID 01/23/16 [History] Nitroglycerin [Nitrostat] 0.4 mg SL AD PRN 01/23/16 [History] Aspirin 81 mg PO DAILY #30 tab.chew 06/01/16 [Rx] Atorvastatin [Lipitor] 40 mg PO HS 11/19/17 [History] Cholecalciferol (D-3) [Vitamin D] 1,000 unit PO DAILY 11/19/17 [History] Oxycodone HCl [Oxycontin] 10 mg PO TID 11/19/17 [History] 3 Allergy/AdvReac Type Severity Reaction Status Date / Time adhesive Allergy Blister Verified 04/14/17 06:54 bacitracin Allergy RASH/BLISTE Verified 04/14/17 07:04 [From Neosporin RS ([id number])] bee venom protein (honey bee) Allergy THROAT Verified 04/14/17 07:04 SWELLING Cortisone Allergy Rash Verified 01/23/16 09:32 Neomycin Allergy RASH/BLISTE Verified 04/14/17 07:04 [From Neosporin RS ([id number])] polymyxin B Allergy RASH/BLISTE Verified 04/14/17 07:04 [From Neosporin RS ([id number])] bupropion [From Wellbutrin] AdvReac Anxiety Verified 01/23/16 09:34 morphine AdvReac See Verified 04/14/17 06:54 Comments All Systems PM: A 10-system review of systems was performed and is negative for pertinent findings except as documented above in the HPI. - Constitutional Vitals: Temp Pulse Resp BP Pulse Ox 97.8 F 84 14 128/76 96 11/20/17 00:31 11/20/17 00:31 11/20/17 00:31 11/20/17 00:31 11/20/17 00:31 General appearance: Present: A&O X 3, no acute distress, answers questions appropriately - Head Head exam: Present: atraumatic, normocephalic - Eye Eye exam: Present: PERRL, conjuntiva pink, sclera anicteric Pupils: Present: PERRL - Neck Neck exam general surgery: Present: supple, trachea midline. Absent: lymphadenopathy - Respiratory Respiratory exam: Present: CTAB. Absent: accessory muscle use, rales, rhonchi, wheezes - Cardiovascular Cardiovascular exam: Present: RRR, +S1, +S2. Absent: diastolic murmur, gallop, rubs, systolic murmur - GI/Abdominal GI/Abdominal exam: Present: normal bowel sounds, soft, tenderness (Tenderness on lower abdominal area, with guarding, no rebound), no peritoneal signs. Absent: distended - Extremities Exam Extremities exam: Present: warm, radial pulses palpable and symmetrical. Absent : calf tenderness, cyanotic, pedal edema - Neurological Exam Neurological exam: Present: CN II-XII intact, oriented X3, no focal deficits. Absent: pronater drift, facial droop, speech deficit - Skin Skin exam: Present: dry, intact Internal Med - H&P Results - Labs CBC & Chem 7: 11/19/17 17:36 11/19/17 17:36
[2017-11-20] MEDS: *HR* HYDROmorphone (PF) 1 MG/ML SYRINGE IVP PRN (06:10)
[2017-11-20] MEDS: Pantoprazole 40 MG VIAL IVP SCH ×3 (06:12→16:13)
[2017-11-20 06:47] LABS: Basophils % 0.1 %; Eosinophils # 0.1 K/mcL (0.0-0.6); Eosinophils % 1.3 %; Hematocrit 33.6 % (35.3-44.9); Hemoglobin 11.6 g/dL (11.5-15.4); Immature Granulocytes % 0.4 % (0-4); Lymphocytes # 1.2 K/mcL (0.6-4.6); Lymphocytes % 16.6 %; Mean Corpuscular HGB Conc 34.5 g/dL (31.6-35.5); Mean Corpuscular Hemoglobin 28.2 pg (28.0-33.3); Mean Corpuscular Volume 81.6 fL (83.0-100.0); Monocytes # 0.4 K/mcL (0.0-1.3); Monocytes % 6.2 %; Neutrophils # 5.3 K/mcL (1.6-8.9); Platelet Count 238 K/mcL (140-400); Red Blood Count 4.12 M/mcL (3.82-4.97); Red Cell Distribution Width 14.4 % (11.5-14.5); Segmented Neutrophils % 75.4 %
[2017-11-20 06:52] LABS: BUN/Creatinine Ratio 8 (6-26); Blood Urea Nitrogen 5 mg/dL (8-23); Calcium 8.5 mg/dL (8.6-10.3); Carbon Dioxide 23 mEq/L (23-29); Chloride 108 mEq/L (98-107); Glucose 94 mg/dL (70-105); Magnesium 1.8 mg/dL (1.6-2.6); Osmolality,Calculated 279 (280-300); Potassium 3.4 mEq/L (3.5-5.1); Sodium 136 mEq/L (136-145); eGFR For African Americans > 60 (> 60); eGFR For Non-African Americans > 60 (> 60)
[2017-11-20] MEDS ORDERED: Piperacillin/Tazobactam 3.375 GM in 0.9 % Sodium Chloride Mini Bag 100 ML IVPB SCH (08:00)
--- NOTE | 2017-11-20 08:30 | Internal Med Progress Note ---
<Jeff Houser - Last Filed: 11/20/17 10:34> Date of Encounter: 11/20/17 Time of Encounter: 08:20 - Assessment and plan (1) Abdominal pain Current Visit: Yes Status: Acute Assessment and plan: Patient has abdominal pain prevalent in LLQ and RLLQ. No guarding or rebound on exam. CT abdomen shows possible perforation. Consider acute peritonitis. - Keep patient nothing by mouth, IV fluid - Discontinued zosyn day#2. Changed to cipro and flagyl. - Give IV PPI - Surgical consult ordered. Qualifiers: Abdominal location: generalized Qualified Code(s): R10.84 - Generalized abdominal pain (2) Bowel perforation Current Visit: Yes Status: Acute Assessment and plan: Management as above. (3) Hypokalemia Current Visit: Yes Status: Acute Assessment and plan: Potassium at 3.4. - Given 20 meq K+ IV. (4) DVT prophylaxis Current Visit: No Status: Acute Assessment and plan: EPCD. No anticoagulation at this point because patient may need surgery. - Subjective Interval history: Patient admits to abdominal pain that has improved since admission. She rates it currently at a 5 out of 10. She says the abdominal pain is worse in the left lower and right lower quadrants. She denies any fever, chills. She admits to some chest congestion and cough productive of yellow phlegm. She denies any chest pain. No bowel movements in it since admission. Admits to some nausea but denies any vomiting. - Constitutional Vitals: Temp Pulse Resp BP Pulse Ox 97.9 F 87 15 113/74 91 11/20/17 06:34 11/20/17 06:34 11/20/17 06:34 11/20/17 06:34 11/20/17 06:34 General appearance: Present: A&O X 3, no acute distress, answers questions appropriately - Respiratory Respiratory exam: Present: CTAB. Absent: accessory muscle use, rales, rhonchi, wheezes - GI/Abdominal GI/Abdominal exam: Present: hyperactive bowel sounds, soft, tenderness (Most prevalent in left lower quadrant and right lower quadrant.). Absent: distended , guarding, rebound - Extremities Exam Extremities exam: Present: full ROM, normal capillary refill, warm, radial pulses palpable and symmetrical. Absent: calf tenderness, cyanotic, pedal edema , tenderness Internal Medicine: Result - Labs CBC & Chem 7: 11/20/17 06:15 11/20/17 06:15 Labs: Short CBC 11/20/17 Range/Units 06:15 WBC 7.1 (4.3-11.1) K/mcL Hgb 11.6 D (11.5-15.4) g/dL Hct 33.6 L (35.3-44.9) % Plt Count 238 (140-400) K/mcL Neutrophils # 5.3 (1.6-8.9) K/mcL [facility] 11/20/17 06:15 Sodium 136 Potassium 3.4 L Chloride 108 H Carbon Dioxide 23 BUN 5 L Creatinine 0.63 Glucose 94 Calcium 8.5 L Consult Discharge Plan - Plan [facility]errals: [facility]Primary Care Provider[facility] - <Broderick Cook H - Last Filed: 11/20/17 10:45> Date of Encounter: 11/20/17 - Constitutional Vitals: Temp Pulse Resp BP Pulse Ox 97.9 F 87 15 113/74 91 11/20/17 06:34 11/20/17 06:34 11/20/17 06:34 11/20/17 06:34 11/20/17 06:34 Internal Medicine: Result - Labs CBC & Chem 7: 11/20/17 06:15 11/20/17 06:15 Labs: Short CBC 11/20/17 Range/Units 06:15 WBC 7.1 (4.3-11.1) K/mcL Hgb 11.6 D (11.5-15.4) g/dL Hct 33.6 L (35.3-44.9) % Plt Count 238 (140-400) K/mcL Neutrophils # 5.3 (1.6-8.9) K/mcL BMP 11/20/17 06:15 Sodium 136 Potassium 3.4 L Chloride 108 H Carbon Dioxide 23 BUN 5 L Creatinine 0.63 Glucose 94 Calcium 8.5 L - Attending Attestation Sepsis secondary to bowel microperforation Александр to ciprofloxacin and Flagyl IV, keep nothing by mouth Chronic pain, patient takes gabapentin and says she is experiencing withdrawal, explained risks about taking oral medications, we will decrease the frequency down to twice a day next Leukocytosis likely secondary to sepsis Hyponatremia resolved Colonic polyps, removed pathology report pending I examined this patient and my medical decision-making was reviewed with the Resident Physician. I agree with the documented findings, disposition and treatment plan as described except to the extent set forth below.
--- NOTE | 2017-11-20 10:10 | General Surgery Consult Note ---
Date of Encounter: 11/20/17 Time of Encounter: 09:00 Assessment and Plan (1) Abdominal pain Current Visit: Yes Status: Acute Her clinical course thus far has included a CT of the abdomen and pelvis without IV and with oral contrast which shows an unchanged punctate area of air inferior to the diaphragm suspicious for a perforated viscous and a new foci of air suggesting possible new perforation. There is unchanged mild wall thickening of the sigmoid colon. Her white blood cell count was 13.8 on admission and is now decreased to 7.1. Her creatinine is normal. Concern for perforation. Pt states she is passing flatus, but feels bloated and has no improvement in abdominal discomfort. On exam she is tender to palpation, nondistended, and has active bowel sounds. She is not nauseated and has not vomited. The endoscopy report was reviewed with Dr. Colvin and notably the largest polyp that was removed is in the location consistent with her discomfort. Given her improving labs, normal heart rate, afebrile, and non-worsening abdominal discomfort, wait for watching is appropriate at this time. Plan: NPO, bowel rest IVF per primary team continue supportive care and discomfort management continue G.I. and DVT prophylaxis per primary team serial labs serial abdominal exam Qualifiers: Abdominal location: generalized Qualified Code(s): R10.84 - Generalized abdominal pain (2) Status post colonoscopy Current Visit: Yes Status: Acute See a/p above History of Present Illness Consult date: 11/19/17 (Dr. Colvin) Reason for consult: other Requesting physician: Akash Tapia History of present illness: Nicole is a 62 year old female who has a past medical history of ASHD, CA, hyperlipidemia, angioplasty and stent, diverticulosis, smoking history of everyday smoker, denies alcohol use or drug use. She presented on 11/20/2017 for complaints of abdominal pain after she had a a scheduled colonoscopy on 11/[address] Escobedo and noteably had 5 polyps removed with the largest one measuring 6 mm. She reported a sudden onset of abdominal discomfort but began approximately 1600 on 11/19/2017. She reports the discomfort feels like burning , is in the right upper and lower quadrants, associated with bloating and distention, has no aggravating or alleviating factors. She denies having a bowel movement but endorses passing gas. She denies nausea or vomiting. She denies fever, chills, headache, lightheadedness, dizziness, urinary symptoms, or generalized weakness. Her clinical course thus far has included a CT of the abdomen and pelvis without IV and with oral contrast which shows an unchanged punctate area of air inferior to the diaphragm suspicious for a perforated viscous and a new foci of air suggesting possible new perforation. There is unchanged mild wall thickening of the sigmoid colon. Her white blood cell count was 13.8 on admission and is now decreased to 7.1. Her creatinine is normal. Surgery has been asked to evaluate this patient for recommendations of concern for viscous perforation. Past Med Surg Social Fam HX - Past Medical History Source: patient, old records reviewed Medical history: coronary artery disease, hyperlipidemia, myocardial infarction , other Psychiatric history: no psych history - Past Surgical History Surgical History: angioplasty/stent, orthopedic, other, other - Social History Smoking Status: Current every day smoker Packs per day: 1 Smokeless Tobacco Status: No Alcohol use: none Drug use: none - Family History Mother Hx Family Cardiac Disorders: Yes Hx Family Endocrine Disorder: Yes Medications and Allergies Carvedilol 12.5 mg PO BID 01/23/16 [History] Cyclobenzaprine HCl 10 mg PO TID 01/23/16 [History] Gabapentin [Neurontin] 600 mg PO TID 01/23/16 [History] Nitroglycerin [Nitrostat] 0.4 mg SL AD PRN 01/23/16 [History] Aspirin 81 mg PO DAILY #30 tab.chew 01/24/16 [Rx] Atorvastatin [Lipitor] 40 mg PO HS 11/19/17 [History] Cholecalciferol (D-3) [Vitamin D] 1,000 unit PO DAILY 11/19/17 [History] Oxycodone HCl [Oxycontin] 10 mg PO TID 11/19/17 [History] 3 Allergy/AdvReac Type Severity Reaction Status Date / Time adhesive Allergy Blister Verified 04/14/17 06:54 bacitracin Allergy RASH/BLISTE Verified 04/14/17 07:04 [From Neosporin RS ([id number])] bee venom protein (honey bee) Allergy THROAT Verified 04/14/17 07:04 SWELLING Cortisone Allergy Rash Verified 01/23/16 09:32 Neomycin Allergy RASH/BLISTE Verified 04/14/17 07:04 [From Neosporin RS ([id number])] polymyxin B Allergy RASH/BLISTE Verified 04/14/17 07:04 [From Neosporin RS ([id number])] bupropion [From Wellbutrin] AdvReac Anxiety Verified 01/23/16 09:34 morphine AdvReac See Verified 04/14/17 06:54 Comments Review of Systems All systems PM: reviewed and no additional remarkable complaints except as stated All systems PM: The remainder of the systems were reviewed and are negative General Surgery Exam Initial Vital Signs Temp Pulse Resp BP Pulse Ox 98.4 F 113 18 134/90 92 11/19/17 17:01 11/19/17 17:01 11/19/17 17:01 11/19/17 17:01 11/19/17 17:01 VITAL SIGNS: Reviewed. See [facility] GENERAL: In no apparent distress. HEENT: Normocephalic, atraumatic, pupils are equal and reactive, extraocular motions intact, oropharynx is pink and moist, there is no neck adenopathy or JVD noted. CHEST/RESPIRATORY: The thorax is free from signs of trauma. Lung sounds: clear to auscultation, normal respiratory effort CARDIAC: Regular rate and rhythm. Normal S1 and S2, without murmurs, gallops, or rubs. VASCULAR: No Edema. 2+ peripheral pulses. ABDOMEN: soft, tender to the right upper and lower quadrant, active bowel sounds, no signs of trauma noted MUSCULOSKELETAL: Good range of motion of all major joints. Extremities without clubbing, cyanosis or edema. NEUROLOGIC EXAM: Alert and oriented x 3. Speech normal. Follows commands. PSYCHIATRIC: Mood normal. SKIN: No rash or lesions. Exam Initial Vital Signs Temp Pulse Resp BP Pulse Ox 98.4 F 113 18 134/90 92 11/19/17 17:01 11/19/17 17:01 11/19/17 17:01 11/19/17 17:01 11/19/17 17:01 Results - Labs 11/20/17 06:15 11/20/17 06:15 Abnormal lab results Hct 33.6 % (35.3-44.9) L 11/20/17 06:15 MCV 81.6 fL (83.0-100.0) L 11/20/17 06:15 Potassium 3.4 mEq/L (3.5-5.1) L 11/20/17 06:15 Chloride 108 mEq/L (98-107) H 11/20/17 06:15 BUN 5 mg/dL (8-23) L 11/20/17 06:15 Calculated Osmolality 279 (280-300) L 11/20/17 06:15 Calcium 8.5 mg/dL (8.6-10.3) L 11/20/17 06:15 Urine Blood Trace (Negative) H 11/19/17 19:43 Ur Leukocyte Esterase Trace (Negative) H 11/19/17 19:43 Ur Squamous Epith Cells Many per lpf (None-Few) H 11/19/17 19:43 Diabetes panel 11/20/17 Range/Units 06:15 Sodium 136 (136-145) mEq/L Potassium 3.4 L (3.5-5.1) mEq/L Chloride 108 H (98-107) mEq/L Carbon Dioxide 23 (23-29) mEq/L BUN 5 L (8-23) mg/dL Creatinine 0.63 (0.60-1.20) mg/dL Glucose 94 (70-105) mg/dL Calcium 8.5 L (8.6-10.3) mg/dL Calcium panel 11/20/17 Range/Units 06:15 Calcium 8.5 L (8.6-10.3) mg/dL Pituitary panel 11/20/17 Range/Units 06:15 Sodium 136 (136-145) mEq/L Potassium 3.4 L (3.5-5.1) mEq/L Chloride 108 H (98-107) mEq/L Carbon Dioxide 23 (23-29) mEq/L BUN 5 L (8-23) mg/dL Creatinine 0.63 (0.60-1.20) mg/dL Glucose 94 (70-105) mg/dL Calcium 8.5 L (8.6-10.3) mg/dL Adrenal panel 11/20/17 Range/Units 06:15 Sodium 136 (136-145) mEq/L Potassium 3.4 L (3.5-5.1) mEq/L Chloride 108 H (98-107) mEq/L Carbon Dioxide 23 (23-29) mEq/L BUN 5 L (8-23) mg/dL Creatinine 0.63 (0.60-1.20) mg/dL Glucose 94 (70-105) mg/dL Calcium 8.5 L (8.6-10.3) mg/dL All other labs normal. - Imaging CT scan - abdomen: report reviewed CT scan - pelvis: report reviewed Consult Discharge Plan - Plan [facility]errals: [facility] [Primary Care Provider[facility] -
[2017-11-20] MEDS: Gabapentin 300 MG CAPSULE PO SCH ×3 (10:53→20:39)
[2017-11-20] MEDS ORDERED: OXYCODONE Oral CONC 10 MG/0.5 ML ORAL.SYG SL SCH (11:00)
[2017-11-20] MEDS: OXYCODONE Oral CONC 10 MG/0.5 ML ORAL.SYG SL PRN ×3 (11:07→20:44)
[2017-11-20] MEDS: MetroNIDAZOLE 500 MG/100 ML 500 MG/100 ML BAG IVPB SCH (16:13)
[2017-11-21] MEDS: MetroNIDAZOLE 500 MG/100 ML 500 MG/100 ML BAG IVPB SCH ×2 (00:59→08:29)
[2017-11-21] MEDS: OXYCODONE Oral CONC 10 MG/0.5 ML ORAL.SYG SL PRN (01:07)
[2017-11-21 05:04] LABS: Basophils % 0.1 %; Eosinophils # 0.1 K/mcL (0.0-0.6); Eosinophils % 0.9 %; Hematocrit 32.2 % (35.3-44.9); Hemoglobin 10.8 g/dL (11.5-15.4); Immature Granulocytes % 0.2 % (0-4); Lymphocytes # 1.3 K/mcL (0.6-4.6); Lymphocytes % 15.3 %; Mean Corpuscular HGB Conc 33.5 g/dL (31.6-35.5); Mean Corpuscular Hemoglobin 28.4 pg (28.0-33.3); Mean Corpuscular Volume 84.7 fL (83.0-100.0); Mean Platelet Volume 11.9 fL (9.4-12.4); Monocytes # 0.4 K/mcL (0.0-1.3); Monocytes % 4.5 %; Neutrophils # 6.7 K/mcL (1.6-8.9); Platelet Count 235 K/mcL (140-400); Red Cell Distribution Width 14.6 % (11.5-14.5)
[2017-11-21 05:18] LABS: BUN/Creatinine Ratio 14 (6-26); Blood Urea Nitrogen 8 mg/dL (8-23); Calcium 8.4 mg/dL (8.6-10.3); Carbon Dioxide 18 mEq/L (23-29); Chloride 110 mEq/L (98-107); Glucose 60 mg/dL (70-105); Osmolality,Calculated 282 (280-300); Potassium 3.9 mEq/L (3.5-5.1); Sodium 138 mEq/L (136-145); eGFR For African Americans > 60 (> 60); eGFR For Non-African Americans > 60 (> 60)
[2017-11-21] MEDS ORDERED: *HR* LORazepam 2 MG/ML VIAL IVP STA (06:15)
[2017-11-21] MEDS: Pantoprazole 40 MG VIAL IVP SCH (06:29)
[2017-11-21] MEDS: Gabapentin 300 MG CAPSULE PO SCH (08:29)
--- NOTE | 2017-11-21 09:40 | Internal Med Progress Note ---
<Jeff Houser - Last Filed: 11/21/17 09:38> Date of Encounter: 11/21/17 Time of Encounter: 09:30 - Assessment and plan (1) Abdominal pain Status: Acute Assessment and plan: Patient's abdominal pain has improved since yesterday. No guarding or rebound on exam. CT abdomen shows possible perforation. Consider acute peritonitis. Patient afebrile. WBC count normal at 8.4. - Changed NPO to clear liquid diet. Will advance diet pending evaluation from surgery. - Day #2 cipro and flagyl. Day #3 of antibiotics. - IV PPI - Stopped IV fluids. Patient able to take PO fluids. - Surgery on board as consult. Qualifiers: Abdominal location: generalized Qualified Code(s): R10.84 - Generalized abdominal pain (2) Bowel perforation Status: Acute Assessment and plan: Management as above. (3) Hypokalemia Status: Resolved Assessment and plan: Potassium at 3.9. (5) DVT prophylaxis Status: Acute Assessment and plan: EPCD. No anticoagulation at this point because patient may need surgery. - Subjective Interval history: When seen today, patient says her abdominal pain has improved to a 3/10 from a 5 /10. She denies any fever, chills, cough, or SOB. Patient has had a BM and denies any blood in her stool. She says she is overall doing much better since admission. - Constitutional Vitals: Temp Pulse Resp BP Pulse Ox 98.7 F 98 15 150/95 94 11/21/17 06:16 11/21/17 06:16 11/21/17 06:16 11/21/17 06:16 11/21/17 06:16 General appearance: Present: A&O X 3, no acute distress, answers questions appropriately - Respiratory Respiratory exam: Present: CTAB. Absent: accessory muscle use, rales, rhonchi, wheezes - Cardiovascular Cardiovascular exam: Present: RRR, +S1, +S2. Absent: diastolic murmur, gallop, rubs, systolic murmur - GI/Abdominal GI/Abdominal exam: Present: normal bowel sounds, soft, no peritoneal signs. Absent: distended, guarding, rebound, tenderness - Extremities Exam Extremities exam: Present: full ROM, normal capillary refill, normal inspection , warm, radial pulses palpable and symmetrical. Absent: calf tenderness, cyanotic, pedal edema, tenderness Internal Medicine: Result - Labs CBC & Chem 7: 11/21/17 04:01 11/21/17 04:01 Labs: Short CBC 11/21/17 Range/Units 04:01 WBC 8.4 (4.3-11.1) K/mcL Hgb 10.8 L (11.5-15.4) g/dL Hct 32.2 L (35.3-44.9) % Plt Count 235 (140-400) K/mcL Neutrophils # 6.7 (1.6-8.9) K/mcL BMP 11/21/17 04:01 Sodium 138 Potassium 3.9 Chloride 110 H Carbon Dioxide 18 L BUN 8 Creatinine 0.59 L Glucose 60 L Calcium 8.4 L - VTE Documentation of Mechanical Device: Intermittent pneumatic compression device Consult Discharge Plan - Plan [facility] Provider[facility] - 12/02/17 9:30 am Prescriptions: Ciprofloxacin [Cipro] 500 mg PO BID 7 Days #14 tablet HydrOXYzine Pamoate [Vistaril] 50 mg PO Q6H PRN #28 capsule PRN Reason: Anxiety metroNIDAZOLE [Flagyl] 500 mg PO TID 7 Days #21 tablet Omeprazole [PriLOSEC] 40 mg PO DAILY #30 cap <Broderick Cook H - Last Filed: 11/21/17 14:46> Date of Encounter: 11/21/17 - Constitutional Vitals: Temp Pulse Resp BP Pulse Ox 98.1 F 91 15 161/95 99 11/21/17 09:58 11/21/17 09:58 11/21/17 09:58 11/21/17 09:58 11/21/17 09:58 Internal Medicine: Result - Labs CBC & Chem 7: 11/21/17 04:01 11/21/17 04:01 Labs: Short CBC 11/21/17 Range/Units 04:01 WBC 8.4 (4.3-11.1) K/mcL Hgb 10.8 L (11.5-15.4) g/dL Hct 32.2 L (35.3-44.9) % Plt Count 235 (140-400) K/mcL Neutrophils # 6.7 (1.6-8.9) K/mcL BMP 11/21/17 04:01 Sodium 138 Potassium 3.9 Chloride 110 H Carbon Dioxide 18 L BUN 8 Creatinine 0.59 L Glucose 60 L Calcium 8.4 L - Attending Attestation Sepsis secondary to bowel microperforation Continue ciprofloxacin and Flagyl Chronic pain, patient takes gabapentin a Leukocytosis likely secondary to sepsis Hyponatremia resolved Colonic polyps, removed pathology report pending ok to discharge if tolerating diet I examined this patient and my medical decision-making was reviewed with the Resident Physician. I agree with the documented findings, disposition and treatment plan as described except to the extent set forth below.
[2017-11-21 10:01] VITALS: BP 161/95
--- NOTE | 2017-11-21 11:10 | General Surgery Progress Note ---
<Tamica Ramires - Last Filed: 11/21/17 11:07> Date of Encounter: 11/21/17 Time of Encounter: 11:07 - Assessment and Plan (1) Abdominal pain Status: Acute CT of the abdomen and pelvis without IV and with oral contrast on 11/19/2017 which shows an unchanged punctate area of air inferior to the diaphragm suspicious for a perforated viscous and no new foci of air suggesting possible new perforation. There is unchanged mild wall thickening of the sigmoid colon. White blood count 8.4 today. Creatinine is 0.59 today. Patient is passing flatus, having bowel movements, and denies abdominal pain. Patient is tolerating diet without any difficulty, nausea, and vomiting. Given her improving labs, normal heart rate, afebrile, and improving abdominal discomfort, no surgical intervention at this time. Surgery will sign off at this time. Surgery recommends upon discharge by primary team, patient should be discharge with antibiotics (Cipro and Flagyl) for 7 days. It is recommended that the patient should follow-up with Dr. Escobedo regarding her pathology from her colonoscopy. Thank you for allowing surgery to participate in this patient's care. Qualifiers: Abdominal location: generalized Qualified Code(s): R10.84 - Generalized abdominal pain (2) Status post colonoscopy Status: Acute See plan as above. Subjective Patient reports: no new complaints, feels better (The patient states that her abdominal pain significantly improved today when compared to yesterday. She admits some mild tenderness in the right upper quadrant, but she states that it is tolerable. She denies any shortness of breath, difficulty breathing, or chest pain. She denies any nausea, vomiting, and urinary symptoms.), tolerating liquids well, flatus, bowel movement (Patient admits bowel movement this morning. She states that the stools were soft and nonbloody.), afebrile Objective Vital Signs - Last 8 Hours Temp Pulse Resp BP Pulse Ox 11/21/17 09:58 98.1 F 91 15 161/95 99 11/21/17 06:16 98.7 F 98 15 150/95 94 11/21/17 05:15 97 16 116/89 95 Intake and Output 11/20/17 11/21/17 11/21/17 23:59 07:59 15:59 Intake Total 1105 / 1105 240 / 240 Balance 1105 / 1105 240 / 240 Intake: IV Fluids 1105 / 1105 KCl 10 MEQ In 0.9 % Sodium 1005 / 1005 Chloride 1,000 ML @ 150 mls/hr IVC .[id number] MARIA ISABEL Rx#:[id number] Flagyl Premix 500 MG/100 ML 500 100 / 100 mg In 100 ml @ 100 mls/hr IVPB Q8HR MARIA ISABEL Rx#:[id number] Oral 0 / 0 240 / 240 Other: Meal Dinner Breakfast Percent of Meal Consumed 0% 0% # Voids 0 3 Weight 76 kg Patient Weight 11/21/17 23:59 Weight 76 kg - General physical appearance well developed, well nourished, no distress - Eyes PERRL, normal ocular movement - ENT normal mucosa, Other (Patient appears congested. Productive cough a exam.) - Neck Neck exam: trachea midline - Respiratory normal expansion, normal respiratory effort, other (Decreased breath sounds in the lower bilateral bases) - Cardiovascular Cardiovascular exam: Present: RRR, no murmurs/rubs/gallops - Abdomen Abdomen: Present: bowel sounds present, soft, tender (Mild Tenderness to palpation the right upper quadrant). Absent: distended Abdominal Tenderness: RUQ - Integumentary no rash, no abnormal pigmentation - Neurologic CN 2-12 grossly intact - Psychiatric oriented to time, oriented to person, oriented to place, speech is normal - Labs 11/21/17 04:01 11/21/17 04:01 Diabetes panel 11/21/17 Range/Units 04:01 Sodium 138 (136-145) mEq/L Potassium 3.9 (3.5-5.1) mEq/L Chloride 110 H (98-107) mEq/L Carbon Dioxide 18 L (23-29) mEq/L BUN 8 (8-23) mg/dL Creatinine 0.59 L (0.60-1.20) mg/dL Glucose 60 L (70-105) mg/dL Calcium 8.4 L (8.6-10.3) mg/dL Calcium panel 11/21/17 Range/Units 04:01 Calcium 8.4 L (8.6-10.3) mg/dL Pituitary panel 11/21/17 Range/Units 04:01 Sodium 138 (136-145) mEq/L Potassium 3.9 (3.5-5.1) mEq/L Chloride 110 H (98-107) mEq/L Carbon Dioxide 18 L (23-29) mEq/L BUN 8 (8-23) mg/dL Creatinine 0.59 L (0.60-1.20) mg/dL Glucose 60 L (70-105) mg/dL Calcium 8.4 L (8.6-10.3) mg/dL Adrenal panel 11/21/17 Range/Units 04:01 Sodium 138 (136-145) mEq/L Potassium 3.9 (3.5-5.1) mEq/L Chloride 110 H (98-107) mEq/L Carbon Dioxide 18 L (23-29) mEq/L BUN 8 (8-23) mg/dL Creatinine 0.59 L (0.60-1.20) mg/dL Glucose 60 L (70-105) mg/dL Calcium 8.4 L (8.6-10.3) mg/dL - VTE Documentation of Mechanical Device: Intermittent pneumatic compression device Consult Discharge Plan - Plan [facility]errals: [facility]Primary Care Provider[facility] - 12/02/17 9:30 am Prescriptions: Ciprofloxacin [Cipro] 500 mg PO BID 7 Days #14 tablet HydrOXYzine Pamoate [Vistaril] 50 mg PO Q6H PRN #28 capsule PRN Reason: Anxiety metroNIDAZOLE [Flagyl] 500 mg PO TID 7 Days #21 tablet Omeprazole [PriLOSEC] 40 mg PO DAILY #30 cap <Jose Enrique Colvin E - Last Filed: 11/29/17 11:49> Date of Encounter: 11/29/17 Objective - Labs 11/21/17 04:01 11/21/17 04:01 - Attending Attestation I examined this patient and my medical decision-making was reviewed with the Resident Physician. I agree with the documented findings, disposition and treatment plan as described except to the extent set forth below. I examined this patient and my medical decision-making was reviewed with the Resident Physician. I agree with the documented findings, disposition and treatment plan as described except to the extent set forth below.
[2017-11-21] MEDS ORDERED: metroNIDAZOLE 500 MG TABLET PO SCH (11:30)
--- NOTE | 2017-11-21 11:40 | Discharge Summary ---
<Jeff Houser - Last Filed: 11/21/17 11:28> Orders not resulted at time of discharge: Pending orders 11/20/17 10:51 Culture,Blood,Additional [BC] Stat Date of Encounter: 11/21/17 Time of Encounter: 09:30 - Discharge Diagnosis (1) Abdominal pain Priority: Primary Status: Acute Qualifiers: Abdominal location: generalized Qualified Code(s): R10.84 - Generalized abdominal pain (2) Bowel perforation Priority: Primary Status: Acute (3) Hypokalemia Priority: Primary Status: Resolved (4) Status post colonoscopy Priority: Secondary Status: Acute (5) DVT prophylaxis Priority: Primary Status: Acute Hospital course: Ms. Naylor is a 62 year old female with history of hypertension, CAD S/P stent , chronic back pain S/P back surgery, presented to ER for abdominal pain. Patient had a colonoscopy the morning of admission and had some polyps removed. She developed abdominal pain later in the afternoon. No vomiting or diarrhea , no fever. CT of the abdomen showed free air under the diaphragm suggestive of perforation. Blood cultures were ordered. Patient started on Zosyn in the ER. Surgery consult ordered. Was on SL oxycodone 10mg for pain control. Patient was put on IV fluids with 10 meq K+. She was started on zosyn but changed to Cipro + flagyl.Was also started on IV PPI due to risk of bleed s/p colonoscopy. Added ANASTASIYA pentin 900 PO BID to avoid withdrawals. When seen today, patient was changed to liquid diet and was able to tolerate. She is able to advance her diet today. WBC normal at 8.4. Pateint afebrile. 99% O2 on room air. Day #3 of antibiotics. Patient says her abdominal pain continues to improve, stating a 3/ 10 in pain scale today. Patient has been ambulatory with her cane. She will be discharged home where she will need to continue 7 more days of ciprofloxacin and metronidazole. It is recommended that the patient should follow-up with Dr. Escobedo regarding her pathology from her colonoscopy. Patient should also follow-up with her PCP in 1 week. Discharge discussed with: patient - Time Spent with Patient Total time spent providing and/or coordinating discharge services: Greater than 30 minutes - Discharge Medications Prescriptions: Ciprofloxacin [Cipro] 500 mg PO BID 7 Days #14 tablet HydrOXYzine Pamoate [Vistaril] 50 mg PO Q6H PRN #28 capsule PRN Reason: Anxiety metroNIDAZOLE [Flagyl] 500 mg PO TID 7 Days #21 tablet Omeprazole [PriLOSEC] 40 mg PO DAILY #30 cap Home Medications: Carvedilol 12.5 mg PO BID 01/23/16 [History] Cyclobenzaprine HCl 10 mg PO TID 01/23/16 [History] Gabapentin [Neurontin] 600 mg PO TID 01/23/16 [History] Nitroglycerin [Nitrostat] 0.4 mg SL AD PRN 01/23/16 [History] Aspirin 81 mg PO DAILY #30 tab.chew 01/24/16 [Rx] Atorvastatin [Lipitor] 40 mg PO HS 11/19/17 [History] Cholecalciferol (D-3) [Vitamin D] 1,000 unit PO DAILY 11/19/17 [History] Oxycodone HCl [Oxycontin] 10 mg PO TID 11/19/17 [History] Ciprofloxacin [Cipro] 500 mg PO BID 7 Days #14 tablet 11/21/17 [Rx] HydrOXYzine Pamoate [Vistaril] 50 mg PO Q6H PRN #28 capsule 11/21/17 [Rx] Omeprazole [PriLOSEC] 40 mg PO DAILY #30 cap 11/21/17 [Rx] metroNIDAZOLE [Flagyl] 500 mg PO TID 7 Days #21 tablet 11/21/17 [Rx] Allergies/Adverse Reactions: 3 Allergy/AdvReac Type Severity Reaction Status Date / Time adhesive Allergy Blister Verified 04/14/17 06:54 bacitracin Allergy RASH/BLISTE Verified 04/14/17 07:04 [From Neosporin RS ([id number])] bee venom protein (honey bee) Allergy THROAT Verified 04/14/17 07:04 SWELLING Cortisone Allergy Rash Verified 01/23/16 09:32 Neomycin Allergy RASH/BLISTE Verified 04/14/17 07:04 [From Neosporin RS ([id number])] polymyxin B Allergy RASH/BLISTE Verified 04/14/17 07:04 [From Neosporin RS ([id number])] bupropion [From Wellbutrin] AdvReac Anxiety Verified 01/23/16 09:34 morphine AdvReac See Verified 04/14/17 06:54 Comments Date of admission: 11/20/17 02:19 Primary care physician: PCP JOMAR Discharging clinician: Jeff Houser Anticipated date of discharge: 11/21/17 - Constitutional Vitals: Temp Pulse Resp BP Pulse Ox 98.1 F 91 15 161/95 99 11/21/17 09:58 11/21/17 09:58 11/21/17 09:58 11/21/17 09:58 11/21/17 09:58 General appearance: Present: A&O X 3, no acute distress, answers questions appropriately - Respiratory Respiratory exam: Present: CTAB. Absent: accessory muscle use, rales, rhonchi, wheezes - Cardiovascular Cardiovascular exam: Present: RRR, +S1, +S2. Absent: diastolic murmur, gallop, rubs, systolic murmur - GI/Abdominal GI/Abdominal exam: Present: normal bowel sounds, soft, no peritoneal signs. Absent: distended, guarding, rebound, tenderness - Extremities Exam Extremities exam: Present: warm, radial pulses palpable and symmetrical. Absent : calf tenderness, cyanotic, pedal edema - Patient Status Disposition: Home, Self-Care Condition: Fair Functional capacity at discharge: uses cane/walker Overall status at discharge: patient is progressing back to baseline - Discharge Instructions Follow Up With: JOMAR,PCP [Primary Care Provider] - 12/02/17 9:30 am - Diet and Activity Activity: ambulate only with your walker Diet: other (Advnace to your usual diet as tolerated ) - VTE Documentation of Mechanical Device: Intermittent pneumatic compression device <Broderick Cook H - Last Filed: 11/21/17 14:47> Orders not resulted at time of discharge: Pending orders 11/20/17 10:51 Culture,Blood,Additional [BC] Stat Date of Encounter: 11/21/17 Hospital course: Ms. Naylor is a 62 year old female - Time Spent with Patient Total time spent providing and/or coordinating discharge services: Date of admission: 11/20/17 02:19 Primary care physician: SUDHIR HADLEY - Constitutional Vitals: Temp Pulse Resp BP Pulse Ox 98.1 F 91 15 161/95 99 11/21/17 09:58 11/21/17 09:58 11/21/17 09:58 11/21/17 09:58 11/21/17 09:58 - Attending Attestation Sepsis secondary to bowel microperforation Continue ciprofloxacin and Flagyl Chronic pain, patient takes gabapentin a Leukocytosis likely secondary to sepsis Hyponatremia resolved Colonic polyps, removed pathology report pending ok to discharge as the patient is tolerating her diet time spent: 40 min I examined this patient and my medical decision-making was reviewed with the Resident Physician. I agree with the documented findings, disposition and treatment plan as described except to the extent set forth below.
== END 2017-11-21 12:08 | disposition home or self-care (01) | DRG 871 ==
LOC: EMEROO 16:49 → 2NENU 16:49
PROVIDERS: ADMIT Internal Medicine Nephrology; ATTEND Internal Medicine

== ENCOUNTER 2017-12-09 18:14 | Inpatient (IN) ==
[2017-12-09] MEDS ORDERED: Aspirin 81 MG TAB.CHEW PO ONE (18:39)
--- NOTE | 2017-12-09 18:42 | Emergency Department Note ---
Disposition Clinical Impression: Chest pain Qualifiers: Chest pain type: unspecified Qualified Code(s): R07.9 - Chest pain, unspecified Disposition: Admitted As Inpatient Condition: Good [facility]errals: [facility] [Primary Care Provider] - Forms: ED Satisfaction Letter Time of Disposition: 19:58 Chest Pain HPI - General Chief Complaint: ED Chest Pain Stated Complaint: CP Time Seen by Provider: 12/09/17 18:39 Source: patient, EMS Mode of arrival: EMS Limitations: no limitations Vital Signs Reviewed: Yes Nursing Notes Reviewed: Yes - History of Present Illness HPI Narrative: 62-year-old female with a history of previous [place] couple years ago had a stent placed by Dr. Vega who comes in today complaining of chest pain. States she has not had a stress test since and is actually scheduled for a stress test tomorrow. As been taking nitroglycerin at home with minimal improvement. She states she has a headache now. Pt complaint: chest pain Onset (ago): Just [employer] Duration: constant Onset: during rest Pain Location: substernal, left chest Severity scale (1-10): 8 Quality: aching, heaviness Pain Radiation: none Improves with: nothing Worsens with: nothing Treatments prior to arrival chest pain: aspirin, nitroglycerin - Related Data Home Medications Medication Instructions Recorded Confirmed Carvedilol 12.5 mg PO BID 01/23/16 11/20/17 Cyclobenzaprine HCl 10 mg PO TID 01/23/16 11/20/17 Gabapentin [Neurontin] 600 mg PO TID 01/23/16 11/20/17 Nitroglycerin [Nitrostat] 0.4 mg SL AD PRN 01/23/16 11/20/17 Atorvastatin [Lipitor] 40 mg PO HS 11/19/17 11/20/17 Cholecalciferol (D-3) [Vitamin D] 1,000 unit PO DAILY 11/19/17 11/20/17 Oxycodone HCl [Oxycontin] 10 mg PO TID 11/19/17 11/20/17 Previous Rx's Medication Instructions Recorded Aspirin 81 mg PO DAILY #30 tab.chew 01/24/16 Ciprofloxacin [Cipro] 500 mg PO BID 7 Days #14 tablet 11/21/17 HydrOXYzine Pamoate [Vistaril] 50 mg PO Q6H PRN #28 capsule 11/21/17 Omeprazole [PriLOSEC] 40 mg PO DAILY #30 cap 11/21/17 metroNIDAZOLE [Flagyl] 500 mg PO TID 7 Days #21 tablet 11/21/17 Allergies Allergy/AdvReac Type Severity Reaction Status Date / Time adhesive Allergy Blister Verified 04/14/17 06:54 bacitracin Allergy RASH/BLISTE Verified 04/14/17 07:04 [From Neosporin RS ([id number]-[id number]-rhule)] bee venom protein (honey bee) Allergy THROAT Verified 04/14/17 07:04 SWELLING Cortisone Allergy Rash Verified 01/23/16 09:32 Neomycin Allergy RASH/BLISTE Verified 04/14/17 07:04 [From Neosporin RS (ynd-wun-yioun)] polymyxin B Allergy RASH/BLISTE Verified 04/14/17 07:04 [From Neosporin RS ([id number])] bupropion [From Wellbutrin] AdvReac Anxiety Verified 01/23/16 09:34 morphine AdvReac See Verified 04/14/17 06:54 Comments All systems ED: reviewed and negative except as stated. Constitutional: Denies: fever, chills, weakness, weight change Eyes: Denies: eye pain, eye discharge, vision change ENT ED: Denies: ear pain, throat pain, dental pain, hearing loss, epistaxis, congestion, dysphagia Cardiovascular: Reports: chest pain. Denies: palpitations, dyspnea on exertion , edema, syncope Respiratory: Denies: cough, dyspnea, wheezes, hemoptysis, stridor Gastrointestinal: Denies: abdominal pain, nausea, vomiting, diarrhea, constipation, hematemesis, melena, hematochezia Genitourinary: Denies: dysuria, frequency, hematuria, discharge Musculoskeletal: Denies: back pain, neck pain, arthralgia, myalgia Integumentary: Denies: rash, abrasion, lesions Neurological: Denies: headache, weakness, numbness, paresthesias, confusion, abnormal gait, vertigo Psychiatric: Denies: anxiety, depression, suicidal thoughts, homicidal thoughts , auditory hallucinations, visual hallucinations Endocrine: Denies: fatigue Hematological/Lymphatic: Denies: easy bleeding, easy bruising Allergic/Immunologic: Denies: facial swelling, urticaria Chest Pain PMH - Past Medical History Medical history: Reports: coronary artery disease, hyperlipidemia, hypertension , myocardial infarction, other Surgical history: Reports: angioplasty/stent, orthopedic, other, other Psychiatric history: Reports: no psych history - Social History Smoking Status: Current every day smoker Alcohol use: Reports: none Drug use: Reports: none Physical Exam - General Limitations: no limitations General appearance: alert - Head Head exam: atraumatic, normocephalic, normal inspection - Eye Eye exam: Present: normal appearance, PERRL, EOMI - ENT ENT exam: normal exam, normal oropharynx, mucous membranes moist - Neck Neck exam: Present: normal inspection, full ROM, trachea midline - Chest Chest inspection: Present: normal inspection, symmetric chest wall rise - Respiratory Respiratory exam: Present: normal lung sounds bilaterally - Cardiovascular Cardiovascular exam: Present: regular rate, normal rhythm, normal heart sounds - Abdominal Exam Abdominal exam: Present: soft, Non-Tender. Absent: tenderness, distention, guarding, rebound, rigidity - Extremities Exam Extremities exam: Present: normal inspection, full ROM. Absent: tenderness, pedal edema - Expanded Lower Extremity Exam Neurovascular/Tendon exam: Absent: motor deficit, sensory deficit, tendon deficit Gait: not tested/not observed - Back Exam Back exam: Present: normal inspection, full ROM. Absent: tenderness - Neurological Exam Neurological exam: Present: alert, oriented X3. Absent: motor sensory deficit - Psychiatric Psychiatric exam: Present: normal affect, normal mood - Skin Skin exam: Present: warm, dry, intact, normal color Course - Reevaluation(s) Reevaluation #1: Patient complains of a headache initially she stated that it was after she started the nitroglycerin but then family is here and said she was complaining of a headache prior to the nitroglycerin. Patient will be admitted for her chest pain we will obtain a CT of the head. Time: 19:57 - Consultations Consultation #1: Discussed with Dr Anthony, admit Time: 19:57 Vital Signs Temperature 98.1 F 12/09/17 18:26 Pulse Rate 87 12/09/17 18:26 Respiratory Rate 16 12/09/17 18:26 Blood Pressure 147/91 12/09/17 18:26 O2 Sat by Pulse Oximetry 97 12/09/17 18:26 Temperature 98.3 F 12/09/17 18:40 Pulse Rate 86 12/09/17 19:13 Respiratory Rate 15 12/09/17 19:13 Blood Pressure 123/89 12/09/17 19:13 O2 Sat by Pulse Oximetry 98 12/09/17 19:13 Oxygen Delivery Oxygen Delivery Nasal Cannula Chest Pain - Lab Data Result diagrams: 12/09/17 18:49 12/09/17 18:49 Lab Results 12/09/17 12/09/17 12/09/17 Range/Units 18:49 18:49 18:49 WBC 7.1 (4.3-11.1) K/mcL RBC 4.62 (3.82-4.97) M/mcL Hgb 13.0 (11.5-15.4) g/dL Hct 38.4 (35.3-44.9) % MCV 83.1 (83.0-100.0) fL MCH 28.1 (28.0-33.3) pg MCHC 33.9 (31.6-35.5) g/dL RDW 13.9 (11.5-14.5) % Plt Count 292 (140-400) K/mcL MPV 11.6 (9.4-12.4) fL Immature Gran % 0.1 (0-4) % Seg Neutrophils % 85.9 % Lymphocytes % 13.0 % Monocytes % 0.9 % Eosinophils % 0.0 % Basophils % 0.1 % Neutrophils # 6.1 (1.6-8.9) K/mcL Lymphocytes # 0.9 (0.6-4.6) K/mcL Monocytes # 0.1 (0.0-1.3) K/mcL Eosinophils # 0.0 (0.0-0.6) K/mcL Basophils # 0.0 (0.0-0.2) K/mcL PT 11.3 (9.4-12.1) Seconds INR 1.1 APTT 35.3 (26.0-36.0) Seconds Sodium 128 L (136-145) mEq/L Potassium 4.5 (3.5-5.1) mEq/L Chloride 96 L (98-107) mEq/L Carbon Dioxide 27 (23-29) mEq/L BUN 12 (8-23) mg/dL Creatinine 0.79 (0.60-1.20) mg/dL Est GFR ( Amer) > 60 (> 60) Est GFR (Non-Af Amer) > 60 (> 60) BUN/Creatinine Ratio 15 (6-26) Glucose 137 H (70-105) mg/dL Calculated Osmolality 268 L (280-300) Calcium 10.1 (8.6-10.3) mg/dL Troponin I < 0.03 (< 0.04) ng/mL - EKG Data EKG attestation: Yes I reviewed and interpreted this EKG. EKG shows normal: sinus rhythm Rate: normal Rhythm: NSR Carlin/QRS: normal Interpretation: no acute changes Heart Score - Score History: Moderately Suspicious EKG: Normal Age: 45-65 Risk Factors: Equal/Greater than 3 risk factor or history of atherosclerotic disease Troponin: Less than normal limit HEART Score Total: 4
[2017-12-09 19:12] LABS: Basophils % 0.1 %; Hematocrit 38.4 % (35.3-44.9); Immature Granulocytes % 0.1 % (0-4); Lymphocytes # 0.9 K/mcL (0.6-4.6); Mean Corpuscular HGB Conc 33.9 g/dL (31.6-35.5); Mean Corpuscular Hemoglobin 28.1 pg (28.0-33.3); Mean Corpuscular Volume 83.1 fL (83.0-100.0); Mean Platelet Volume 11.6 fL (9.4-12.4); Monocytes # 0.1 K/mcL (0.0-1.3); Monocytes % 0.9 %; Neutrophils # 6.1 K/mcL (1.6-8.9); Platelet Count 292 K/mcL (140-400); Red Blood Count 4.62 M/mcL (3.82-4.97); Red Cell Distribution Width 13.9 % (11.5-14.5); Segmented Neutrophils % 85.9 %
[2017-12-09 19:18] LABS: INR 1.1; Prothrombin Time 11.3 Seconds (9.4-12.1)
[2017-12-09 19:20] LABS: Activated Partial Thrombo Time 35.3 Seconds (26.0-36.0)
[2017-12-09 19:31] LABS: BUN/Creatinine Ratio 15 (6-26); Blood Urea Nitrogen 12 mg/dL (8-23); Calcium 10.1 mg/dL (8.6-10.3); Carbon Dioxide 27 mEq/L (23-29); Chloride 96 mEq/L (98-107); Glucose 137 mg/dL (70-105); Osmolality,Calculated 268 (280-300); Potassium 4.5 mEq/L (3.5-5.1); Sodium 128 mEq/L (136-145); Troponin I < 0.03 ng/mL (< 0.04); eGFR For African Americans > 60 (> 60); eGFR For Non-African Americans > 60 (> 60)
[2017-12-09] MEDS ORDERED: *HR* OxyCODONE/APAP 5/325 TABLET PO ONE (19:56)
[2017-12-09] MEDS ORDERED: Naloxone 0.4 MG/ML INJ IVP PRN (20:12)
[2017-12-09] MEDS ORDERED: Gabapentin 300 MG CAPSULE PO ONE (20:56)
[2017-12-09] MEDS ORDERED: Nitroglycerin 0.4 MG TAB.SUBL SL PRN (22:25)
--- NOTE | 2017-12-09 22:28 | Internal Med History&Physical ---
Date of Encounter: 12/09/17 Time of Encounter: 22:27 Internal Medicine - H&P: HPI Chief complaint: Chest pain Admitted From: Home Plans for Post Hospital Care: Home History of present illness: Ms. Naylor is a 62 year old female with prior stents 2 no longer on Plavix. Has been complaining of shortness of breath to her primary care physician, presented to the 8 this morning with chest pain. The patient is said to be pressure-like, feels like an elephant sitting on her chest wall, radiates to her left shoulder, associated with shortness of breath. No diaphoresis, no dizziness, no palpitations. She denies cough, leg swelling, nausea or vomiting. No abdominal symptoms. Her chest pressure was relieved by nitroglycerin in the ER. At time of review, she is currently chest pain-free. Review of system is unremarkable. Workup in the emergency room is unremarkable. We will place on observation for chest pain rule out acute coronary syndrome. Past Med Surg Social Fam HX - Past Medical History Medical history: coronary artery disease, hyperlipidemia, hypertension, myocardial infarction, other Psychiatric history: no psych history - Past Surgical History Surgical History: angioplasty/stent, orthopedic, other, other - Social History Smoking Status: Current every day smoker Packs per day: 1 Smokeless Tobacco Status: No Alcohol use: none Drug use: none - Family History Mother Living Status: Hx Family Cardiac Disorders: Yes Hx Family Endocrine Disorder: Yes Father Living Status: Hx Family Cardiac Disorders: Yes Internal Medicine - H&P: Meds Carvedilol 12.5 mg PO BID 01/23/16 [History] Cyclobenzaprine HCl 10 mg PO TID 01/23/16 [History] Gabapentin [Neurontin] 600 mg PO TID 01/23/16 [History] Nitroglycerin [Nitrostat] 0.4 mg SL AD PRN 01/23/16 [History] Aspirin 81 mg PO DAILY #30 tab.chew 01/24/16 [Rx] Atorvastatin [Lipitor] 40 mg PO HS 11/19/17 [History] Cholecalciferol (D-3) [Vitamin D] 1,000 unit PO DAILY 11/19/17 [History] Oxycodone HCl [Oxycontin] 10 mg PO TID 11/19/17 [History] Omeprazole [PriLOSEC] 40 mg PO DAILY #30 cap 11/21/17 [Rx] 3 Allergy/AdvReac Type Severity Reaction Status Date / Time adhesive Allergy Blister Verified 12/09/17 20:17 bacitracin Allergy RASH/BLISTE Verified 12/09/17 20:17 [From Neosporin RS ([id number])] bee venom protein (honey bee) Allergy THROAT Verified 12/09/17 20:17 SWELLING Cortisone Allergy Rash Verified 12/09/17 20:17 Neomycin Allergy RASH/BLISTE Verified 12/09/17 20:17 [From Neosporin RS ([id number])] polymyxin B Allergy RASH/BLISTE Verified 12/09/17 20:17 [From Neosporin RS ([id number])] bupropion [From Wellbutrin] AdvReac Anxiety Verified 12/09/17 20:17 morphine AdvReac See Verified 12/09/17 20:17 Comments All Systems PM: A 10-system review of systems was performed and is negative for pertinent findings except as documented above in the HPI. - Constitutional Constitutional: as per HPI - EENT Eyes: as per HPI Ears: as per HPI Nose, mouth and throat: as per HPI - Cardiovascular Cardiovascular ROS IM: as per HPI - Respiratory Respiratory: as per HPI - Gastrointestinal Gastrointestinal: as per HPI - Genitourinary Genitourinary: as per HPI - Musculoskeletal Musculoskeletal ROS IM: as per HPI - Integumentary Integumentary IM: as per HPI - Hematologic/Lymphatic Hematologic/Lymphatic: as per HPI - Allergic/Immunologic Allergic/Immunologic: as per HPI - Constitutional Vitals: Temp Pulse Resp BP Pulse Ox 98.3 F 86 16 150/88 97 12/09/17 18:40 12/09/17 20:06 12/09/17 20:06 12/09/17 20:06 12/09/17 20:06 General appearance: Present: A&O X 3, pleasant, no acute distress - Head Head exam: Present: atraumatic, normocephalic - Eye Eye exam: Present: PERRL, conjuntiva pink, sclera anicteric Pupils: Present: PERRL - Neck Neck exam general surgery: Present: supple, trachea midline. Absent: lymphadenopathy - Respiratory Respiratory exam: Present: CTAB. Absent: accessory muscle use, rales, rhonchi, wheezes Additional comments: no chest wall tenderness - Cardiovascular Cardiovascular exam: Present: RRR, +S1, +S2. Absent: diastolic murmur, gallop, rubs, systolic murmur - GI/Abdominal GI/Abdominal exam: Present: normal bowel sounds, soft, no peritoneal signs. Absent: distended, tenderness - Extremities Exam Extremities exam: Present: warm, radial pulses palpable and symmetrical. Absent : calf tenderness, cyanotic, pedal edema - Neurological Exam Neurological exam: Present: alert, CN II-XII intact, oriented X3, no focal deficits. Absent: pronater drift, facial droop, speech deficit - Skin Skin exam: Present: dry, intact Internal Med - H&P Results - Labs CBC & Chem 7: 12/09/17 18:49 12/09/17 18:49 - Assessment and plan (1) Chest pain Current Visit: Yes Status: Acute Assessment and plan: Patient with known coronary artery disease presenting with typical cardiac chest pain. Initial EKG unremarkable with no ST segment changes. Initial troponin negative. Patient reports 2 prior stents. Left heart catheter in 2016 reveals double vessel coronary artery disease at that time she had a PCI placed. Proximal LAD stent was patent. Echocardiogram in 2017 was essentially unremarkable except a mild left ventricular diastolic dysfunction. Obtain troponins 3 every 6h. Obtain echocardiogram and stress test in the morning. NTG prn chest pain Obtain lipid panel and A1c in the morning. No current indication for cardiology evaluation at this time. Consult cardiology if any of the tests are abnormal. Plan of care discussed, patient verbalizes understanding. Qualifiers: Chest pain type: unspecified Qualified Code(s): R07.9 - Chest pain, unspecified (2) HLD (hyperlipidemia) Current Visit: Yes Status: Chronic Assessment and plan: continue home meds Qualifiers: Hyperlipidemia type: unspecified Qualified Code(s): E78.5 - Hyperlipidemia , unspecified (3) CAD (coronary artery disease) Current Visit: Yes Status: Chronic Assessment and plan: as in chest pain Qualifiers: Coronary Disease-Associated Artery/Lesion type: [place] artery [place] vs. transplanted heart: [place] heart Associated angina: without angina Qualified Code(s): I25.10 - Atherosclerotic heart disease of [place] coronary artery without angina pectoris - Time Spent With Patient Total time spent is greater than 50% in coordination of care (as documented) at patient's floor/unit and/or counseling patient:
[2017-12-09] MEDS: Acetaminophen 325 MG TABLET PO PRN (23:20)
[2017-12-10 01:18] LABS: Chol/HDL Ratio 4.7 (0-4.9)
[2017-12-10] MEDS ORDERED: Regadenoson 0.4 MG/5 ML SYRINGE IVP ONE (06:15)
[2017-12-10] MEDS: Gabapentin 300 MG CAPSULE PO SCH ×3 (09:39→20:53)
[2017-12-10] MEDS: *HR* OxyCODONE ER (12 HR) 10 MG TABLET PO SCH ×3 (09:40→20:53)
[2017-12-10] MEDS: Cholecalciferol (D-3) 1,000 UNIT TABLET PO SCH (09:40)
[2017-12-10] MEDS: Aspirin 81 MG TAB.CHEW PO SCH (09:40)
[2017-12-10] MEDS: Acetaminophen 325 MG TABLET PO PRN (13:12)
--- NOTE | 2017-12-10 14:37 | Discharge Summary ---
- NOTES TO OUTPATIENT PROVIDER Notes to Outpatient Provider: Follow-up with primary care physician, stress test performed on this admission is negative. Follow-up with cardiology as an outpatient. Event recorder per standpipe tender's discretion Date of Encounter: 12/10/17 Time of Encounter: 14:35 - Discharge Diagnosis (1) CAD (coronary artery disease) Status: Chronic Qualifiers: Coronary Disease-Associated Artery/Lesion type: [place] artery [place] vs. transplanted heart: [place] heart Associated angina: without angina Qualified Code(s): I25.10 - Atherosclerotic heart disease of [place] coronary artery without angina pectoris (2) Chest pain Status: Acute Qualifiers: Chest pain type: unspecified Qualified Code(s): R07.9 - Chest pain, unspecified (3) HLD (hyperlipidemia) Status: Chronic Qualifiers: Hyperlipidemia type: unspecified Qualified Code(s): E78.5 - Hyperlipidemia , unspecified Hospital course: Ms. Naylor is a 62 year old female - Time Spent with Patient Total time spent providing and/or coordinating discharge services: - Discharge Medications Home Medications: Carvedilol 12.5 mg PO BID 01/23/16 [History] Cyclobenzaprine HCl 10 mg PO TID 01/23/16 [History] Gabapentin [Neurontin] 600 mg PO TID 01/23/16 [History] Nitroglycerin [Nitrostat] 0.4 mg SL AD PRN 01/23/16 [History] Aspirin 81 mg PO DAILY #30 tab.chew 01/24/16 [Rx] Atorvastatin [Lipitor] 40 mg PO HS 11/19/17 [History] Cholecalciferol (D-3) [Vitamin D] 1,000 unit PO DAILY 11/19/17 [History] Oxycodone HCl [Oxycontin] 10 mg PO TID 11/19/17 [History] Omeprazole [PriLOSEC] 40 mg PO DAILY #30 cap 11/21/17 [Rx] Allergies/Adverse Reactions: 3 Allergy/AdvReac Type Severity Reaction Status Date / Time adhesive Allergy Blister Verified 12/09/17 20:17 bacitracin Allergy RASH/BLISTE Verified 12/09/17 20:17 [From Neosporin RS ([id number])] bee venom protein (honey bee) Allergy THROAT Verified 12/09/17 20:17 SWELLING Cortisone Allergy Rash Verified 12/09/17 20:17 Neomycin Allergy RASH/BLISTE Verified 12/09/17 20:17 [From Neosporin RS ([id number])] polymyxin B Allergy RASH/BLISTE Verified 12/09/17 20:17 [From Neosporin RS ([id number])] bupropion [From Wellbutrin] AdvReac Anxiety Verified 12/09/17 20:17 morphine AdvReac See Verified 12/09/17 20:17 Comments Date of admission: 12/10/17 09:53 Primary care physician: PCP PR Discharging clinician: Lisa Vargas Anticipated date of discharge: 12/10/17 - Constitutional Vitals: Temp Pulse Resp BP Pulse Ox 98.0 F 80 14 138/83 100 12/10/17 10:55 12/10/17 10:55 12/10/17 10:55 12/10/17 10:55 12/10/17 10:55 General appearance: Present: A&O X 3, pleasant, no acute distress - Patient Status Disposition: Home, Self-Care Condition: Good Functional capacity at discharge: independent ambulation Overall status at discharge: patient is progressing back to baseline - Discharge Instructions Instructions: Chest Pain (DC), Hyperlipidemia (DC) Additional Instructions: Follow-up appointments: If there is not an appointment listed below, please call your physician and schedule a follow-up appointment. If you have congestive heart failure and your symptoms return, make an appointment with your physician. Medication List: Carry an up to date list of medications you are taking at all time. We have given you an updated medication list including any new medications that you have been prescribed. Please provide that list to your primary provider Symptoms: If your condition changes or you experience any of the following symptoms, notify your physician immediately: Unusual or worsening pain, fever, persistent nausea and vomiting, bleeding, increase in swelling (especially in your legs), sudden weight gain, extreme dizziness, chest pain, increased drainage or redness from a wound or incision. Go to the emergency department if you experience a problem with breathing. Weights: If you have a history of swelling or shortness of breath, weigh yourself daily and notify your physician if you have a weight gain of two or more pounds in one day or 5 or more pounds in a week. If you experience any of the warning signs for stroke: Sudden numbness or weakness of the face, arm or leg; especially on one side of the body, sudden confusion, trouble speaking or understanding, sudden trouble seeing in one or both eyes, sudden trouble walking, dizziness, loss of balance or coordination, sudden sever headache with no cause; Call 911 or go to the emergency room. Stroke is a medical emergency. Some risk factors for stroke: Age, cigarette smoking, diabetes, excessive alcohol consumption, family history , high blood pressure, overweight, physical inactivity, prior stroke, heart attack, diagnosis of carotid artery stenosis or other artery disease. If you smoke, STOP: Smoking or tobacco use significantly increases your risk of heart and lung disease. Your chance of disease greatly increases if you continue to smoke. For more information, call the [place] tobacco quit line for smoking cessation - QUIT-NOW ( ) - Diet and Activity Diet: advance to your usual diet
[2017-12-10 15:31] LABS: BUN/Creatinine Ratio 21 (6-26); Blood Urea Nitrogen 15 mg/dL (8-23); Calcium 9.1 mg/dL (8.6-10.3); Carbon Dioxide 23 mEq/L (23-29); Chloride 96 mEq/L (98-107); Glucose 134 mg/dL (70-105); Osmolality,Calculated 261 (280-300); Potassium 4.1 mEq/L (3.5-5.1); Sodium 124 mEq/L (136-145); eGFR For African Americans > 60 (> 60); eGFR For Non-African Americans > 60 (> 60)
--- NOTE | 2017-12-10 16:35 | Internal Med Progress Note ---
Date of Encounter: 12/10/17 Time of Encounter: 16:25 - Assessment and plan (1) CAD (coronary artery disease) Current Visit: Yes Status: Chronic Assessment and plan: chest pain admission Stress with no ischemia or infarct Echocardiogram completed report is pending Troponins are negative Qualifiers: Coronary Disease-Associated Artery/Lesion type: [place] artery [place] vs. transplanted heart: [place] heart Associated angina: without angina Qualified Code(s): I25.10 - Atherosclerotic heart disease of [place] coronary artery without angina pectoris (2) Chest pain Current Visit: Yes Status: Acute Assessment and plan: Patient with known coronary artery disease presenting with typical cardiac chest pain. Initial EKG unremarkable with no ST segment changes. Initial troponin negative. Patient reports 2 prior stents. Left heart catheter in 2016 reveals double vessel coronary artery disease at that time she had a PCI placed. Proximal LAD stent was patent. Echocardiogram in 2017 was essentially unremarkable except a mild left ventricular diastolic dysfunction. troponins 3 negative. echocardiogram completed and report pending stress test completed with no ischemia or infarct NTG prn chest pain lipid panel reviewed continue statin A1c pending Qualifiers: Chest pain type: unspecified Qualified Code(s): R07.9 - Chest pain, unspecified (3) HLD (hyperlipidemia) Current Visit: Yes Status: Chronic Assessment and plan: Triglycerides 137, cholesterol 234, LDL 157, HDL 50 Continue statin Qualifiers: Hyperlipidemia type: unspecified Qualified Code(s): E78.5 - Hyperlipidemia , unspecified (4) Hyponatremia Current Visit: Yes Status: Acute Assessment and plan: Hyponatremic at 124 which is below her baseline. Nephrology consult Fluid restrictions Intake and output Daily weight - Time Spent With Patient Total time spent is greater than 50% in coordination of care (as documented) at patient's floor/unit and/or counseling patient: - Subjective Interval history: Patient is chest pain free, she has chronic back pain. No fever, chills, SOB - Constitutional Vitals: Temp Pulse Resp BP Pulse Ox 97.9 F 69 15 137/86 96 12/10/17 15:03 12/10/17 15:03 12/10/17 15:03 12/10/17 15:03 12/10/17 15:03 General appearance: Present: cooperative, A&O X 3, pleasant, answers questions appropriately - Head Head exam: Present: atraumatic, normocephalic - Eye Eye exam: Present: PERRL, conjuntiva pink, sclera anicteric Pupils: Present: PERRL - Neck Neck exam general surgery: Present: supple, trachea midline. Absent: lymphadenopathy - Respiratory Respiratory exam: Present: CTAB. Absent: accessory muscle use, rales, rhonchi, wheezes - Cardiovascular Cardiovascular exam: Present: RRR, +S1, +S2. Absent: diastolic murmur, gallop, rubs, systolic murmur - GI/Abdominal GI/Abdominal exam: Present: normal bowel sounds, soft, no peritoneal signs. Absent: distended, tenderness - Extremities Exam Extremities exam: Present: warm, radial pulses palpable and symmetrical. Absent : calf tenderness, cyanotic, pedal edema - Neurological Exam Neurological exam: Present: alert, CN II-XII intact, normal gait, oriented X3, no focal deficits. Absent: pronater drift, facial droop, speech deficit - Skin Skin exam: Present: dry, intact, normal color, warm Internal Medicine: Result - Labs CBC & Chem 7: 12/09/17 18:49 12/10/17 14:55 Labs: BMP 12/10/17 14:55 Sodium 124 L Potassium 4.1 Chloride 96 L Carbon Dioxide 23 BUN 15 Creatinine 0.71 Glucose 134 H Calcium 9.1 - ABG Interpretation ABG results: PT/INR, D-dimer PT 11.3 Seconds (9.4-12.1) 12/09/17 18:49 Consult Discharge Plan - Plan Instructions: Chest Pain (DC), Hyperlipidemia (DC) Additional Instructions: Follow-up appointments: If there is not an appointment listed below, please call your physician and schedule a follow-up appointment. If you have congestive heart failure and your symptoms return, make an appointment with your physician. Medication List: Carry an up to date list of medications you are taking at all time. We have given you an updated medication list including any new medications that you have been prescribed. Please provide that list to your primary provider Symptoms: If your condition changes or you experience any of the following symptoms, notify your physician immediately: Unusual or worsening pain, fever, persistent nausea and vomiting, bleeding, increase in swelling (especially in your legs), sudden weight gain, extreme dizziness, chest pain, increased drainage or redness from a wound or incision. Go to the emergency department if you experience a problem with breathing. Weights: If you have a history of swelling or shortness of breath, weigh yourself daily and notify your physician if you have a weight gain of two or more pounds in one day or 5 or more pounds in a week. If you experience any of the warning signs for stroke: Sudden numbness or weakness of the face, arm or leg; especially on one side of the body, sudden confusion, trouble speaking or understanding, sudden trouble seeing in one or both eyes, sudden trouble walking, dizziness, loss of balance or coordination, sudden sever headache with no cause; Call 911 or go to the emergency room. Stroke is a medical emergency. Some risk factors for stroke: Age, cigarette smoking, diabetes, excessive alcohol consumption, family history , high blood pressure, overweight, physical inactivity, prior stroke, heart attack, diagnosis of carotid artery stenosis or other artery disease. If you smoke, STOP: Smoking or tobacco use significantly increases your risk of heart and lung disease. Your chance of disease greatly increases if you continue to smoke. For more information, call the [place] tobacco quit line for smoking cessation -NOW ( ) [facility]errals: [facility] [Primary Care Provider] -
[2017-12-10 21:24] LABS: Estimated Average Glucose 120 mg/dl; Hemoglobin A1C 5.8 %
[2017-12-11 05:00] LABS: Basophils % 0.1 %; Eosinophils # 0.1 K/mcL (0.0-0.6); Eosinophils % 1.2 %; Hematocrit 35.5 % (35.3-44.9); Hemoglobin 11.9 g/dL (11.5-15.4); Immature Granulocytes % 0.3 % (0-4); Lymphocytes # 2.2 K/mcL (0.6-4.6); Lymphocytes % 33.5 %; Mean Corpuscular HGB Conc 33.5 g/dL (31.6-35.5); Mean Corpuscular Hemoglobin 27.9 pg (28.0-33.3); Mean Corpuscular Volume 83.1 fL (83.0-100.0); Mean Platelet Volume 12.7 fL (9.4-12.4); Monocytes # 0.6 K/mcL (0.0-1.3); Neutrophils # 3.7 K/mcL (1.6-8.9); Platelet Count 191 K/mcL (140-400); Red Blood Count 4.27 M/mcL (3.82-4.97); Red Cell Distribution Width 14.2 % (11.5-14.5); Segmented Neutrophils % 55.9 %
[2017-12-11 05:16] LABS: BUN/Creatinine Ratio 21 (6-26); Blood Urea Nitrogen 15 mg/dL (8-23); Calcium 8.8 mg/dL (8.6-10.3); Carbon Dioxide 22 mEq/L (23-29); Chloride 94 mEq/L (98-107); Glucose 90 mg/dL (70-105); Osmolality,Calculated 258 (280-300); Sodium 124 mEq/L (136-145); eGFR For African Americans > 60 (> 60); eGFR For Non-African Americans > 60 (> 60)
[2017-12-11 05:21] LABS: Uric Acid 4.4 mg/dL (2.3-7.6)
[2017-12-11 05:31] LABS: Thyroid Stimulating Hormone 3.184 mcIU/mL (0.340-5.600)
[2017-12-11] MEDS: *HR* OxyCODONE ER (12 HR) 10 MG TABLET PO SCH ×3 (08:30→20:42)
[2017-12-11] MEDS: Cholecalciferol (D-3) 1,000 UNIT TABLET PO SCH (08:30)
[2017-12-11] MEDS: Aspirin 81 MG TAB.CHEW PO SCH (08:30)
[2017-12-11] MEDS: Gabapentin 300 MG CAPSULE PO SCH ×3 (08:30→20:42)
--- NOTE | 2017-12-11 13:38 | Internal Med Progress Note ---
Date of Encounter: 12/11/17 Time of Encounter: 13:36 - Assessment and plan (1) CAD (coronary artery disease) Current Visit: Yes Status: Chronic Assessment and plan: chest pain admission with r/o ACS Stress with no ischemia or infarct Echocardiogram completed report LVEF 60%, normal LV chamber size wall thickness and function. Mild left ventricular diastolic dysfunction. Normal right ventricular structure and function, mild aortic regurgitation. Unable to estimate are VSP due to lack of TR jet. All wall segments showed normal motion during rest Echo findings. Troponins are negative Qualifiers: Coronary Disease-Associated Artery/Lesion type: [place] artery [place] vs. transplanted heart: [place] heart Associated angina: without angina Qualified Code(s): I25.10 - Atherosclerotic heart disease of [place] coronary artery without angina pectoris (2) Chest pain Current Visit: Yes Status: Acute Assessment and plan: Patient with known coronary artery disease presenting with typical cardiac chest pain. Initial EKG was unremarkable with no ST segment changes. Initial troponin negative. Patient reported 2 prior stents. Left heart cath in 2016 revealed double vessel coronary artery disease at that time and she had a PCI placed. Proximal LAD stent was patent. Echocardiogram in 2017 was essentially unremarkable except a mild left ventricular diastolic dysfunction. Troponins 3 negative. Echocardiogram completed Stress test completed with no ischemia or infarct NTG prn chest pain Lipid panel reviewed continue statin A1c 5.8 Qualifiers: Chest pain type: unspecified Qualified Code(s): R07.9 - Chest pain, unspecified (3) HLD (hyperlipidemia) Current Visit: Yes Status: Chronic Assessment and plan: Triglycerides 137, cholesterol 234, LDL 157, HDL 50 Continue home statin Qualifiers: Hyperlipidemia type: unspecified Qualified Code(s): E78.5 - Hyperlipidemia , unspecified (4) Hyponatremia Current Visit: Yes Status: Acute Assessment and plan: Hyponatremic at 124 which is well below her baseline. Nephrology consulted Fluid restrictions Intake and output Daily weight - Time Spent With Patient Total time spent is greater than 50% in coordination of care (as documented) at patient's floor/unit and/or counseling patient: - Subjective Interval history: Patient is chest pain free, she does have chronic back pain. No fever, chills, SOB following fluid restrictions - Constitutional Vitals: Temp Pulse Resp BP Pulse Ox 98.0 F 65 16 124/77 93 12/11/17 11:24 12/11/17 11:24 12/11/17 07:25 12/11/17 11:24 12/11/17 11:24 General appearance: Present: cooperative, A&O X 3, pleasant, answers questions appropriately - Head Head exam: Present: atraumatic, normocephalic - Eye Eye exam: Present: PERRL, conjuntiva pink, sclera anicteric Pupils: Present: PERRL - Neck Neck exam general surgery: Present: supple, trachea midline. Absent: lymphadenopathy - Respiratory Respiratory exam: Present: CTAB. Absent: accessory muscle use, rales, rhonchi, wheezes - Cardiovascular Cardiovascular exam: Present: RRR, +S1, +S2. Absent: diastolic murmur, gallop, rubs, systolic murmur - GI/Abdominal GI/Abdominal exam: Present: normal bowel sounds, soft, no peritoneal signs. Absent: distended, tenderness - Extremities Exam Extremities exam: Present: warm, radial pulses palpable and symmetrical. Absent : calf tenderness, cyanotic, pedal edema - Neurological Exam Neurological exam: Present: alert, CN II-XII intact, normal gait, oriented X3, no focal deficits. Absent: pronater drift, facial droop, speech deficit - Skin Skin exam: Present: dry, intact, normal color, warm Internal Medicine: Result - Labs CBC & Chem 7: 12/11/17 03:02 12/11/17 03:02 Labs: Short CBC 12/11/17 Range/Units 03:02 WBC 6.7 (4.3-11.1) K/mcL Hgb 11.9 (11.5-15.4) g/dL Hct 35.5 (35.3-44.9) % Plt Count 191 (140-400) K/mcL Neutrophils # 3.7 (1.6-8.9) K/mcL BMP 12/10/17 12/11/17 14:55 03:02 Sodium 124 L 124 L Potassium 4.1 4.0 Chloride 96 L 94 L Carbon Dioxide 23 22 L BUN 15 15 Creatinine 0.71 0.73 Glucose 134 H 90 Calcium 9.1 8.8 - ABG Interpretation ABG results: PT/INR, D-dimer PT 11.3 Seconds (9.4-12.1) 12/09/17 18:49 Consult Discharge Plan - Plan Instructions: Chest Pain (DC), Hyperlipidemia (DC) Additional Instructions: Follow-up appointments: If there is not an appointment listed below, please call your physician and schedule a follow-up appointment. If you have congestive heart failure and your symptoms return, make an appointment with your physician. Medication List: Carry an up to date list of medications you are taking at all time. We have given you an updated medication list including any new medications that you have been prescribed. Please provide that list to your primary provider Symptoms: If your condition changes or you experience any of the following symptoms, notify your physician immediately: Unusual or worsening pain, fever, persistent nausea and vomiting, bleeding, increase in swelling (especially in your legs), sudden weight gain, extreme dizziness, chest pain, increased drainage or redness from a wound or incision. Go to the emergency department if you experience a problem with breathing. Weights: If you have a history of swelling or shortness of breath, weigh yourself daily and notify your physician if you have a weight gain of two or more pounds in one day or 5 or more pounds in a week. If you experience any of the warning signs for stroke: Sudden numbness or weakness of the face, arm or leg; especially on one side of the body, sudden confusion, trouble speaking or understanding, sudden trouble seeing in one or both eyes, sudden trouble walking, dizziness, loss of balance or coordination, sudden sever headache with no cause; Call 911 or go to the emergency room. Stroke is a medical emergency. Some risk factors for stroke: Age, cigarette smoking, diabetes, excessive alcohol consumption, family history , high blood pressure, overweight, physical inactivity, prior stroke, heart attack, diagnosis of carotid artery stenosis or other artery disease. If you smoke, STOP: Smoking or tobacco use significantly increases your risk of heart and lung disease. Your chance of disease greatly increases if you continue to smoke. For more information, call the [place] tobacco quit line for smoking cessation QUIT-NOW ( ) [facility]errals: [facility] [Primary Care Provider] -
[2017-12-11] MEDS ORDERED: Cosyntropin 250 MCG/2 ML VIAL IVP ONE (14:57)
--- NOTE | 2017-12-11 23:24 | Nephrology Consult Note ---
Date of Encounter: 12/11/17 Time of Encounter: 12:00 Assessment and Plan (1) Hyponatremia Current Visit: Yes Status: Acute Hyponatremia appears acute on chronic, asymptomatic and euvolemic Urine osm elevated at 399 which is inappropriate response suggesting possible SIADH serum osm appropriately low, confirms hyponatremia TSH WNL Cortisol level low, will perform ACTH stim test Gievn smoking status, will proceed with CT chest Fluid restriction advised at 2l a day Salt tabs ordered Liberalized sodium in diet (2) Chest pain Current Visit: Yes Status: Acute Per primary team Qualifiers: Chest pain type: unspecified Qualified Code(s): R07.9 - Chest pain, unspecified History of Present Illness - Reason for Consult Consult date: 12/11/17 hyponatremia Requesting physician: Lisa Vargas - History of Present Illness 62 y o female with PMH of HTN, CAD s/p stents and life long smoker admitted with chest pain and SOB undergoing cardiac workup which were negative to date. Renal consulted for sodium of 124 which was a drop from admission from 128. Pt recalls being told at the [facility] where she gets her care of low sodium levels several times now but no intervetions were ever made. She denies any persistent N/V/D. She likes to eat salt but also drinks tremendous amounts of fluids daily. No diuretics on board. She does take oxycodone for chronic back pain s/p spinal surgery along with gabapentin. Past Med Surg Social Fam HX - Past Medical History Medical history: coronary artery disease, hyperlipidemia, hypertension, myocardial infarction, other Psychiatric history: no psych history - Past Surgical History Surgical History: angioplasty/stent, orthopedic, other, other - Social History Smoking Status: Current every day smoker Packs per day: 1 Smokeless Tobacco Status: No Alcohol use: none Drug use: none - Family History Mother Living Status: Hx Family Cardiac Disorders: Yes Hx Family Endocrine Disorder: Yes Father Living Status: Hx Family Cardiac Disorders: Yes Medications and Allergies Carvedilol 12.5 mg PO BID 01/23/16 [History] Cyclobenzaprine HCl 10 mg PO TID 01/23/16 [History] Gabapentin [Neurontin] 600 mg PO TID 01/23/16 [History] Nitroglycerin [Nitrostat] 0.4 mg SL AD PRN 01/23/16 [History] Aspirin 81 mg PO DAILY #30 tab.chew 01/24/16 [Rx] Atorvastatin [Lipitor] 40 mg PO HS 11/19/17 [History] Cholecalciferol (D-3) [Vitamin D] 1,000 unit PO DAILY 11/19/17 [History] Oxycodone HCl [Oxycontin] 10 mg PO TID 11/19/17 [History] Omeprazole [PriLOSEC] 40 mg PO DAILY #30 cap 11/21/17 [Rx] 3 Allergy/AdvReac Type Severity Reaction Status Date / Time adhesive Allergy Blister Verified 12/09/17 20:17 bacitracin Allergy RASH/BLISTE Verified 12/09/17 20:17 [From Neosporin RS ([id number])] bee venom protein (honey bee) Allergy THROAT Verified 12/09/17 20:17 SWELLING Cortisone Allergy Rash Verified 12/09/17 20:17 Neomycin Allergy RASH/BLISTE Verified 12/09/17 20:17 [From Neosporin RS ([id number])] polymyxin B Allergy RASH/BLISTE Verified 12/09/17 20:17 [From Neosporin RS ([id number])] bupropion [From Wellbutrin] AdvReac Anxiety Verified 12/09/17 20:17 morphine AdvReac See Verified 12/09/17 20:17 Comments Review of Systems All Systems: reviewed and no additional remarkable complaints except as stated ( 10 systems reviewed and as noted in HPI) Exam - Vital Signs Vital signs: Initial Vital Signs Temp Pulse Resp BP Pulse Ox 98.1 F 87 16 147/91 97 12/09/17 18:26 12/09/17 18:26 12/09/17 18:26 12/09/17 18:26 12/09/17 18:26 Vital Signs - Last 8 Hours Temp Pulse Resp BP Pulse Ox 12/11/17 20:46 91 12/11/17 20:05 97.6 F 89 18 134/73 91 Intake and Output 12/11/17 12/11/17 12/11/17 07:59 15:59 23:59 Intake Total 360 / 360 240 / 240 Output Total 1200 / 1200 700 / 700 Balance -840 / -840 -460 / -460 Intake: Oral 360 / 360 240 / 240 Output: Urine 1200 / 1200 700 / 700 Other: Meal Lunch Percent of Meal Consumed 100% 50% # Voids 1 # Urine Diapers 400 Weight 74.3 kg Patient Weight 12/11/17 23:59 Weight 74.3 kg - General Appearance General appearance: well-developed, well-nourished EENT: ATNC, mucous membranes moist Neck: no JVD, supple Respiratory: clear Cardiology: no edema, normal S1, normal S2 Gastrointestinal: no tenderness, no guarding Integumentary: warm and dry Neurologic: no focal deficit Psychiatric: mood/affect appropriate, cooperative Results - Lab Results 12/11/17 03:02 12/11/17 03:02 Most recent lab results Calcium 8.8 mg/dL (8.6-10.3) 12/11/17 03:02 Urine Sodium 31.8 mEq/L 12/11/17 00:39 Consult Discharge Plan - Plan Instructions: Chest Pain (DC), Hyperlipidemia (DC) Additional Instructions: Follow-up appointments: If there is not an appointment listed below, please call your physician and schedule a follow-up appointment. If you have congestive heart failure and your symptoms return, make an appointment with your physician. Medication List: Carry an up to date list of medications you are taking at all time. We have given you an updated medication list including any new medications that you have been prescribed. Please provide that list to your primary provider Symptoms: If your condition changes or you experience any of the following symptoms, notify your physician immediately: Unusual or worsening pain, fever, persistent nausea and vomiting, bleeding, increase in swelling (especially in your legs), sudden weight gain, extreme dizziness, chest pain, increased drainage or redness from a wound or incision. Go to the emergency department if you experience a problem with breathing. Weights: If you have a history of swelling or shortness of breath, weigh yourself daily and notify your physician if you have a weight gain of two or more pounds in one day or 5 or more pounds in a week. If you experience any of the warning signs for stroke: Sudden numbness or weakness of the face, arm or leg; especially on one side of the body, sudden confusion, trouble speaking or understanding, sudden trouble seeing in one or both eyes, sudden trouble walking, dizziness, loss of balance or coordination, sudden sever headache with no cause; Call 911 or go to the emergency room. Stroke is a medical emergency. Some risk factors for stroke: Age, cigarette smoking, diabetes, excessive alcohol consumption, family history , high blood pressure, overweight, physical inactivity, prior stroke, heart attack, diagnosis of carotid artery stenosis or other artery disease. If you smoke, STOP: Smoking or tobacco use significantly increases your risk of heart and lung disease. Your chance of disease greatly increases if you continue to smoke. For more information, call the [place] tobacco quit line for smoking cessation 1-477- -NOW ( ) Referrals: [facility] [Primary Care Provider] - 12/17/17 10:30 am
[2017-12-12 07:05] LABS: Hemoglobin 13.2 g/dL (11.5-15.4); Mean Corpuscular Hemoglobin 28.1 pg (28.0-33.3); Mean Corpuscular Volume 85.3 fL (83.0-100.0); Mean Platelet Volume 11.7 fL (9.4-12.4); Platelet Count 268 K/mcL (140-400); Red Blood Count 4.69 M/mcL (3.82-4.97); Red Cell Distribution Width 14.3 % (11.5-14.5)
[2017-12-12 07:33] LABS: BUN/Creatinine Ratio 15 (6-26); Blood Urea Nitrogen 12 mg/dL (8-23); Calcium 9.6 mg/dL (8.6-10.3); Carbon Dioxide 29 mEq/L (23-29); Chloride 102 mEq/L (98-107); Glucose 93 mg/dL (70-105); Osmolality,Calculated 279 (280-300); Potassium 4.7 mEq/L (3.5-5.1); Sodium 135 mEq/L (136-145); eGFR For African Americans > 60 (> 60); eGFR For Non-African Americans > 60 (> 60)
--- NOTE | 2017-12-12 07:44 | Event Note ---
Date of Encounter: 12/12/17 Time of Encounter: 07:42 Nephrology Chart Review Hyponatremia has nearly resolved. Will sign-off. Thank you for having consulted the [facility] group. Please feel free to call and / or page me with any questions. Thank you.
--- NOTE | 2017-12-12 08:30 | Pulmonology Consult Note ---
Date of Encounter: 12/12/17 Time of Encounter: 08:29 Assessment and Plan (1) Abnormal CT of the chest Current Visit: Yes Status: Acute The patient has bilateral upper lobe the predominant micronodular infiltrates coupled with small cystic lesions that are also predominant in the upper lobes. Overall findings are concerning for smoking-related interstitial lung disease and the top differentials would be respiratory bronchiolitis ILD versus Pulmonary Langerhans Histiocytosis. I think less likely this is related to chronic hypersensitivity or atypical infection. I do not think that her previous exposure to tuberculosis is factoring into the CT findings. She does have mucoid secretions in the trachea which are likely related to the suspected undiagnosed COPD and chronic bronchitis A bronchoscopy is recommended. The procedure , risks, benefits, complications, and expected outcomes have been reviewed. Benefits of diagnosis, as well as risks to include bleeding, infection, pneumothorax which may require surgical intervention, and in a small population. The patient is aware that sometimes test is nondiagnostic. Discussed with patient and agrees to proceed. Keep nothing by mouth planned procedure this afternoon as patient has had a small amount of breakfast If the primary service was plan discharging the patient today she could still potentially be discharged post bronchoscopy if there is no intraprocedure complication. She would need close follow-up in the next 1-2 weeks in pulmonary clinic to discuss results (2) COPD (chronic obstructive pulmonary disease) Current Visit: Yes Status: Acute Chronic smoker No current oxygen requirement Start long-acting muscarinic antagonist Spiriva 18.5 g daily Administer short acting beta agonist albuterol as needed Out Patient pulmonary follow-up for PFTs and optimization of inhaler regimen Qualifiers: Emphysema type: unspecified Qualified Code(s): J43.9 - Emphysema, unspecified (3) Chest pain Current Visit: Yes Status: Acute She has had cardiac rule out it is possible that this may be related to underlying airways disease Qualifiers: Chest pain type: unspecified Qualified Code(s): R07.9 - Chest pain, unspecified (4) Hyponatremia Current Visit: Yes Status: Acute This appears related to SIADH and is improving per nephrology there is no evidence of lung cancer on the CT scan that would be complicating this. (5) Tobacco abuse counseling Current Visit: Yes Status: Acute It is imperative that the patient stop smoking and I had a candid discussion with her that the leading differential diagnosis for her CT scan changes are related to tobacco abuse and often times stopping smoking can result in full resolution of findings. Please provide patient with nicotine patch if requested and she can be discharged with a prescription for nicotine replacement Thank you for this consultation pulmonary will cont to see the patient History of Present Illness Consult date: 12/12/17 Requesting physician: Lisa Vargas Reason for consult: abnormal CXR/CT Chief complaint: Chest Pain History of present illness: This is a very pleasant 62-year-old woman with a past medical history of coronary artery disease status post PCI and chronic tobacco abuse who presented with chest pain she has had extensive noninvasive cardiac ischemic workup thus far including stress test and echocardiogram which were unremarkable she was also noted to have hyponatremia and was evaluated by nephrology who diagnosed her with SIADH as part of this evaluation a CT of her chest was obtained which had some significantly abnormal findings prompting formal pulmonary consultation. Her pulmonary history is remarkable for smoking one pack a day since the age of 16. No previous history of hospitalization related to respiratory problems although she does have a history of recurrent bronchitis. She has never formally been diagnosed with COPD. Her was stationed in [employer] echo in [place] at one point and the subsequent PPD was positive prompting year-long treatment for latent tuberculosis. She is not currently on a short acting her long-acting inhaler. 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 Data personally reviewed and Incorporated into my medical decision-making: CXR 12/09: NO acute cardiopulmonary process ECHO: 12/09: LVEF 60%.Mild left ventricular diastolic dysfunction.Normal right ventricular structure and function.Mild aortic regurgitation. Nuclear Stress 12/10: Pharmacologic stress ECG is negative for ischemia at level of heart rate achieved. CT Chest 12/11 (personally interpreted) : Mucoid secretions in the trachea bilateral my Ct nodular infiltrates with small cystic lesions predominantly in the upper lobes Past Med Surg Social Fam HX - Past Medical History Medical history: coronary artery disease, hyperlipidemia, hypertension, myocardial infarction, other Psychiatric history: no psych history - Past Surgical History Surgical History: angioplasty/stent, orthopedic, other, other - Social History Smoking Status: Current every day smoker Packs per day: 1 Smokeless Tobacco Status: No Alcohol use: none Drug use: none - Family History Mother Living Status: Hx Family Cardiac Disorders: Yes Hx Family Endocrine Disorder: Yes Father Living Status: Hx Family Cardiac Disorders: Yes Medications and Allergies Carvedilol 12.5 mg PO BID 01/23/16 [History] Cyclobenzaprine HCl 10 mg PO TID 01/23/16 [History] Gabapentin [Neurontin] 600 mg PO TID 01/23/16 [History] Nitroglycerin [Nitrostat] 0.4 mg SL AD PRN 01/23/16 [History] Aspirin 81 mg PO DAILY #30 tab.chew 01/24/16 [Rx] Atorvastatin [Lipitor] 40 mg PO HS 11/19/17 [History] Cholecalciferol (D-3) [Vitamin D] 1,000 unit PO DAILY 11/19/17 [History] Oxycodone HCl [Oxycontin] 10 mg PO TID 11/19/17 [History] Omeprazole [PriLOSEC] 40 mg PO DAILY #30 cap 11/21/17 [Rx] 3 Allergy/AdvReac Type Severity Reaction Status Date / Time adhesive Allergy Blister Verified 12/09/17 20:17 bacitracin Allergy RASH/BLISTE Verified 12/09/17 20:17 [From Neosporin RS ([id number])] bee venom protein (honey bee) Allergy THROAT Verified 12/09/17 20:17 SWELLING Cortisone Allergy Rash Verified 12/09/17 20:17 Neomycin Allergy RASH/BLISTE Verified 12/09/17 20:17 [From Neosporin RS ([id number])] polymyxin B Allergy RASH/BLISTE Verified 12/09/17 20:17 [From Neosporin RS ([id number])] bupropion [From Wellbutrin] AdvReac Anxiety Verified 12/09/17 20:17 morphine AdvReac See Verified 12/09/17 20:17 Comments All Systems: The remainder of the systems were reviewed and are negative Physical Examination Vital Signs: Vital Signs, Last 4 Hours Temp Pulse Resp BP Pulse Ox 12/12/17 07:11 97.9 F 73 17 137/88 93 General appearance: no acute distress Eyes: nonicteric ENT: oropharynx moist Neck: supple, no lymphadenopathy Effort: normal Auscultation: bilateral: clear Cardiovascular: regular rate and rhythm Gastrointestinal: normoactive bowel sounds, soft, non-tender Integumentary: normal Extremities: no cyanosis, no edema, no clubbing Musculoskeletal: no deformities normal mental status, non-focal exam mood appropriate Results - Laboratory Findings CBC and BMP: 12/12/17 06:46 12/12/17 06:46 PT/INR, D-dimer PT 11.3 Seconds (9.4-12.1) 12/09/17 18:49 Abnormal lab findings: Abnormal lab results Sodium 135 mEq/L (136-145) L 12/12/17 06:46 Hemoglobin A1c 5.8 % (-5.6) H 12/10/17 00:35 Serum Osmolality 268 mOsm/kg (280-300) L 12/10/17 18:25 Calculated Osmolality 279 (280-300) L 12/12/17 06:46 Cholesterol 234 mg/dL (< 200) H 12/10/17 00:35 LDL Cholesterol, Calc 157 mg/dL (0-99) H 12/10/17 00:35 - Diagnostic Findings Chest x-ray: report reviewed CT scan - chest: report reviewed - Clinical Findings Intake & Output: Intake & Output 12/11/17 12/12/17 12/12/17 23:59 07:59 15:59 Intake Total 240 / 240 Output Total 700 / 700 Balance -460 / -460 Weight 70 kg Consult Discharge Plan - Plan Instructions: Chest Pain (DC), Hyperlipidemia (DC) Additional Instructions: Follow-up appointments: If there is not an appointment listed below, please call your physician and schedule a follow-up appointment. If you have congestive heart failure and your symptoms return, make an appointment with your physician. Medication List: Carry an up to date list of medications you are taking at all time. We have given you an updated medication list including any new medications that you have been prescribed. Please provide that list to your primary provider Symptoms: If your condition changes or you experience any of the following symptoms, notify your physician immediately: Unusual or worsening pain, fever, persistent nausea and vomiting, bleeding, increase in swelling (especially in your legs), sudden weight gain, extreme dizziness, chest pain, increased drainage or redness from a wound or incision. Go to the emergency department if you experience a problem with breathing. Weights: If you have a history of swelling or shortness of breath, weigh yourself daily and notify your physician if you have a weight gain of two or more pounds in one day or 5 or more pounds in a week. If you experience any of the warning signs for stroke: Sudden numbness or weakness of the face, arm or leg; especially on one side of the body, sudden confusion, trouble speaking or understanding, sudden trouble seeing in one or both eyes, sudden trouble walking, dizziness, loss of balance or coordination, sudden sever headache with no cause; Call 911 or go to the emergency room. Stroke is a medical emergency. Some risk factors for stroke: Age, cigarette smoking, diabetes, excessive alcohol consumption, family history , high blood pressure, overweight, physical inactivity, prior stroke, heart attack, diagnosis of carotid artery stenosis or other artery disease. If you smoke, STOP: Smoking or tobacco use significantly increases your risk of heart and lung disease. Your chance of disease greatly increases if you continue to smoke. For more information, call the [place] tobacco quit line for smoking cessation -NOW ( ) Referrals: [facility],PCP [Primary Care Provider] - 12/17/17 10:30 am
[2017-12-12] MEDS: Cholecalciferol (D-3) 1,000 UNIT TABLET PO SCH (09:12)
[2017-12-12] MEDS: Gabapentin 300 MG CAPSULE PO SCH (09:12)
[2017-12-12] MEDS: *HR* OxyCODONE ER (12 HR) 10 MG TABLET PO SCH (09:12)
[2017-12-12] MEDS: Aspirin 81 MG TAB.CHEW PO SCH (09:12)
--- NOTE | 2017-12-12 09:22 | Pre-Sedation Evaluation ---
Pre-sedation evaluation - Pre-sedation checklist Date of procedure: 12/12/17 Procedure: Bronchoscopy Recent Vitals: Last Vital Signs Temp 97.9 F 12/12/17 07:11 Pulse 73 12/12/17 07:11 Resp 17 12/12/17 07:11 BP 137/88 12/12/17 07:11 Pulse Ox 93 12/12/17 07:11 H&P (including ROS) documented in medical record: Yes Previous reaction to sedatives/anesthetics: No Dietary Status: NPO 6 hours prior to procedure Airway Assessment: Patient can open mouth completely, TMJ function normal Dentition: No loose teeth or bridges ASA Classification *see protocol: CLASS II-Mild systemic disease Plan of Care: Pt appropriate candidate for procedure/moderate/conscious sedation , Risks/benefits of procedure/sedation discussed w/ patient/family
[2017-12-12] MEDS ORDERED: Albuterol 2.5 MG/3 ML NEBULIZER IH ONE (09:23)
[2017-12-12] MEDS ORDERED: Tetracaine/Benzocaine/Butamben 200MG/SPRAY (100SPY/BOT) MM ONE (09:23)
[2017-12-12] MEDS ORDERED: *HR* EPINEPHrine 1 MG/10 ML SYRINGE INTRATRACH PRN (09:23)
[2017-12-12] MEDS ORDERED: *HR* Midazolam HCl 2 MG/2 ML VIAL IVP ONE (09:23)
[2017-12-12] MEDS ORDERED: *HR* FentaNYL (PF) 100 MCG/2 ML VIAL IVP ONE (09:23)
[2017-12-12] MEDS ORDERED: Ringers Solution, Lactated 1,000 ML IVC SCH (09:30)
[2017-12-12] MEDS ORDERED: *HR* Midazolam HCl 5 MG/5 ML VIAL IVP ONE (14:40)
[2017-12-12] MEDS ORDERED: *HR* FentaNYL (PF) 100 MCG/2 ML VIAL ONE (14:41)
[2017-12-12] MEDS ORDERED: Lidocaine Viscous Oral Soln 15 ML SOLUTION ONE (14:41)
--- NOTE | 2017-12-12 15:27 | Electrocardiograph Report ---
[place] [id number] Test Date: 2017-12-09 Pat Name: Nicole Naylor Department: 102 Room: 3B Gender: F Housekeeper [facility]: [facility] : 1955 Requested By: Soham Riojas Order Number: [id number] Reading MD: Phillip Rahman Measurements Intervals [place] Rate: 86 P: 76 [place]: 154 QRS: 89 QRSD: 78 T: 83 QT: 361 QTc: 404 Interpretive Statements SINUS RHYTHM Electronically Signed On 12-12-2017 15:25:48 EDT by Phillip Rahman
--- NOTE | 2017-12-12 16:14 | Discharge Summary ---
- NOTES TO OUTPATIENT PROVIDER Notes to Outpatient Provider: Patient had a bronchoscopy with washings sent for evaluation. She should follow up with pulmonology as an outpatient. Patient was very hyponatremic and started on sodium tablets. She should follow up with nephrology within a few week or so. She should follow-up with her primary care physician Orders not resulted at time of discharge: Pending orders 12/11/17 15:40 ACTH Routine 12/12/17 15:20 AFB Culture, Respiratory [TB] Routine Cell Count w Diff, Body Fluid [BF] Routine Culture,Respiratory [RM] Routine Gram Stain [RM] Routine Cytology [PTH] Routine Date of Encounter: 12/12/17 Time of Encounter: 16:08 - Discharge Diagnosis (1) CAD (coronary artery disease) Priority: Primary Status: Chronic Qualifiers: Coronary Disease-Associated Artery/Lesion type: [place] artery [place] vs. transplanted heart: [place] heart Associated angina: without angina Qualified Code(s): I25.10 - Atherosclerotic heart disease of [place] coronary artery without angina pectoris (2) Chest pain Priority: Primary Status: Resolved Qualifiers: Chest pain type: unspecified Qualified Code(s): R07.9 - Chest pain, unspecified (3) HLD (hyperlipidemia) Priority: Primary Status: Chronic Qualifiers: Hyperlipidemia type: unspecified Qualified Code(s): E78.5 - Hyperlipidemia , unspecified (4) Hyponatremia Priority: Primary Status: Acute (5) Tobacco abuse counseling Priority: Primary Status: Chronic (6) Abnormal CT of the chest Priority: Primary Status: Acute Hospital course: Ms. Naylor is a 62 year old female who presented to the emergency room for evaluation of chest pain. She has a history of prior stents 2 but was no longer on Plavix. She had shortness of breath as well and the [place] primary care physician sent her here for evaluation as she felt as if she had an elephant sitting on her chest. EKG was unremarkable with no ST segment changes. Troponins were negative 3. In 2016 revealed double vessel coronary artery disease and she had PCI 2. Echocardiogram in 2017 was unremarkable except for some mild ventricular diastolic dysfunction. Stress test was completed and negative for ischemia or infarct. Echocardiogram was reviewed. Lipid panel and hemoglobin A1c were also obtained and reviewed. She will continue her statin on discharge and her cardiac medications required no changes. She was found to be hyponatremic on lab work. A follow-up lab work was obtained and it was even lower. Nephrology was consult it. A workup ensued and she was placed on sodium tablets. She will be discharged to follow-up with urology in 1-[address] scan of the chest was obtained and revealed abnormal findings including bilateral upper lobe predominant pulmonary micronodules and irregular cystic changes. There were nonspecific marginal tracheal and right mainstem bronchus soft tissue densities which could represent tenacious secretions versus possible polyps. There were no occluding lesions. Pulmonary service was consulted and recommended bronchoscopy. Bronchial washing was sent. The patient will follow-up with pulmonary clinic in 1-2 weeks to discuss results. She has no oxygen requirements. She will be discharged on Spiriva 18.5 daily. Also be given albuterol inhaler. She will follow-up with PFTs and optimization of inhaler regime as an outpatient. 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 Brettuffs discharge plans and she will follow-up as directed. Discharge discussed with: patient, nurse, strategic solutions consultant Time spent discussing smoking cessation with patient: 3 to 10 minutes - Time Spent with Patient Total time spent providing and/or coordinating discharge services: Less than 30 minutes - Discharge Medications Prescriptions: Albuterol Sulfate [Albuterol Inhaler] 1 puff IH Q6HR PRN 10 Days #1 hfa.aer.ad PRN Reason: Dyspnea Sodium Chloride 1 gm PO BID 30 Days #60 tablet Tiotropium [Spiriva] 18 mcg IH 0700 #30 capsule Home Medications: Carvedilol 12.5 mg PO BID 01/23/16 [History] Cyclobenzaprine HCl 10 mg PO TID 01/23/16 [History] Gabapentin [Neurontin] 600 mg PO TID 01/23/16 [History] Nitroglycerin [Nitrostat] 0.4 mg SL AD PRN 01/23/16 [History] Aspirin 81 mg PO DAILY #30 tab.chew 01/24/16 [Rx] Atorvastatin [Lipitor] 40 mg PO HS 11/19/17 [History] Cholecalciferol (D-3) [Vitamin D] 1,000 unit PO DAILY 11/19/17 [History] Oxycodone HCl [Oxycontin] 10 mg PO TID 11/19/17 [History] Omeprazole [PriLOSEC] 40 mg PO DAILY #30 cap 11/21/17 [Rx] Albuterol Sulfate [Albuterol Inhaler] 1 puff IH Q6HR PRN 10 Days #1 hfa.aer.ad 12/12/17 [Rx] Sodium Chloride 1 gm PO BID 30 Days #60 tablet 12/12/17 [Rx] Tiotropium [Spiriva] 18 mcg IH 0700 #30 capsule 12/12/17 [Rx] Allergies/Adverse Reactions: 3 Allergy/AdvReac Type Severity Reaction Status Date / Time adhesive Allergy Blister Verified 12/09/17 20:17 bacitracin Allergy RASH/BLISTE Verified 12/09/17 20:17 [From Neosporin RS ([id number])] bee venom protein (honey bee) Allergy THROAT Verified 12/09/17 20:17 SWELLING Cortisone Allergy Rash Verified 12/09/17 20:17 Neomycin Allergy RASH/BLISTE Verified 12/09/17 20:17 [From Neosporin RS ([id number])] polymyxin B Allergy RASH/BLISTE Verified 12/09/17 20:17 [From Neosporin RS ([id number])] bupropion [From Wellbutrin] AdvReac Anxiety Verified 12/09/17 20:17 morphine AdvReac See Verified 12/09/17 20:17 Comments Date of admission: 12/10/17 09:53 [facility] care physician: [facility] Consults: 12/10/17 16:10 Consult to Nephrology [CONS] Routine Consulting Provider: [facility] Hollister/SHRUTI/LA NENA/BRIANDA Reason for Consult: Hyponatremia Time Notified: 16:11 Call Completed: Yes 12/12/17 08:23 Consult to Pulmonology [CONS] Routine Consulting Provider: [facility] Reason for Consult: abnormal ct scan Time Notified: 08:24 Call Completed: Yes Discharging clinician: Lisa Vargas Anticipated date of discharge: 12/12/17 - Constitutional Vitals: Temp Pulse Resp BP Pulse Ox 97.9 F 87 16 149/77 95 12/12/17 11:00 12/12/17 15:27 12/12/17 15:27 12/12/17 15:27 12/12/17 15:27 General appearance: Present: cooperative, A&O X 3, pleasant, no acute distress, answers questions appropriately - Head Head exam: Present: atraumatic, normocephalic - Eye Eye exam: Present: PERRL, conjuntiva pink, sclera anicteric Pupils: Present: PERRL - Neck Neck exam general surgery: Present: supple, trachea midline. Absent: lymphadenopathy - Respiratory Respiratory exam: Present: decreased breath sounds. Absent: accessory muscle use, rales, rhonchi, wheezes - Cardiovascular Cardiovascular exam: Present: RRR, +S1, +S2. Absent: diastolic murmur, gallop, rubs, systolic murmur - GI/Abdominal GI/Abdominal exam: Present: normal bowel sounds, soft, no peritoneal signs. Absent: distended, tenderness - Extremities Exam Extremities exam: Present: warm, radial pulses palpable and symmetrical. Absent : calf tenderness, cyanotic, pedal edema - Neurological Exam Neurological exam: Present: alert, CN II-XII intact, normal gait, oriented X3, no focal deficits. Absent: pronater drift, facial droop, speech deficit - Skin Skin exam: Present: dry, intact, normal color, warm - Patient Status Disposition: Home, Self-Care Condition: Good Functional capacity at discharge: independent ambulation Overall status at discharge: patient is progressing back to baseline - Discharge Instructions Instructions: Chest Pain (DC), Hyperlipidemia (DC) Follow Up With: Niall Lange MD [Partnered Physician] - 12/25/17 8:15 am Carlos Paul MD [Partnered Physician] - 12/22/17 1:30 pm () [facility] [Primary Care Provider] - 12/17/17 10:30 am Additional Instructions: Follow-up appointments: If there is not an appointment listed below, please call your physician and schedule a follow-up appointment. If you have congestive heart failure and your symptoms return, make an appointment with your physician. Medication List: Carry an up to date list of medications you are taking at all time. We have given you an updated medication list including any new medications that you have been prescribed. Please provide that list to your primary provider Symptoms: If your condition changes or you experience any of the following symptoms, notify your physician immediately: Unusual or worsening pain, fever, persistent nausea and vomiting, bleeding, increase in swelling (especially in your legs), sudden weight gain, extreme dizziness, chest pain, increased drainage or redness from a wound or incision. Go to the emergency department if you experience a problem with breathing. Weights: If you have a history of swelling or shortness of breath, weigh yourself daily and notify your physician if you have a weight gain of two or more pounds in one day or 5 or more pounds in a week. If you experience any of the warning signs for stroke: Sudden numbness or weakness of the face, arm or leg; especially on one side of the body, sudden confusion, trouble speaking or understanding, sudden trouble seeing in one or both eyes, sudden trouble walking, dizziness, loss of balance or coordination, sudden sever headache with no cause; Call 911 or go to the emergency room. Stroke is a medical emergency. Some risk factors for stroke: Age, cigarette smoking, diabetes, excessive alcohol consumption, family history , high blood pressure, overweight, physical inactivity, prior stroke, heart attack, diagnosis of carotid artery stenosis or other artery disease. If you smoke, STOP: Smoking or tobacco use significantly increases your risk of heart and lung disease. Your chance of disease greatly increases if you continue to smoke. For more information, call the [place] tobacco quit line for smoking cessation - QUIT-NOW ( ) - Diet and Activity Activity: resume usual activities as tolerated
[2017-12-12 16:34] VITALS: BP 114/76
[2017-12-12 17:12] LABS: Appearance of Body Fluid Clear (Clear); Volume of Body Fluid 21 mL
== END 2017-12-12 17:18 | disposition home or self-care (01) | DRG 264 ==
LOC: 3BNU 18:14 → EMEROO 18:14 → 3BNU 21:15
PROVIDERS: ADMIT Internal Medicine; ATTEND Registered Nurse